=== PATIENT | female | born 1965 | race Caucasian/White ===

== ENCOUNTER 2020-10-03 12:53 | Outpatient (CLI) | payer MEDICARE | END 2020-10-03 12:54 | disposition home or self-care (01) | LOC: DTY/OP 12:53 | PROVIDERS: ATTEND Specialist | DX: Z01.818 Encounter for other preprocedural examination (principal); E66.01 Morbid (severe) obesity due to excess calories | CPT/HCPCS: 97802 ==

== ENCOUNTER 2020-10-24 06:34 | Outpatient (CLI) | payer MEDICARE ==
[2020-10-24 18:33] LABS: SARS-CoV-2 MS2 Positive; SARS-CoV-2 N Gene Negative; SARS-CoV-2 S Gene Negative; SARS-CoV-2 by NAA Not Detected (NotDetected); SARS-CoV-2 orf1ab Negative
== END 2020-10-24 06:35 | disposition home or self-care (01) ==
LOC: LABBT 06:34
PROVIDERS: ATTEND Specialist
DX: Z01.812 Encounter for preprocedural laboratory examination (principal); E66.01 Morbid (severe) obesity due to excess calories; E13.9 Other specified diabetes mellitus without complications; R06.02 Shortness of breath; M19.90 Unspecified osteoarthritis, unspecified site; F32.9 Major depressive disorder, single episode, unspecified; G47.33 Obstructive sleep apnea (adult) (pediatric); I15.9 Secondary hypertension, unspecified; Z20.828 Contact with and (suspected) exposure to other viral communicable diseases
CPT/HCPCS: 87635; U0003

== ENCOUNTER 2020-10-24 09:45 | Inpatient (IN) | payer MEDICARE ==
--- NOTE | 2020-10-26 09:03 | HP ---
ADDENDUM: Addendum to history and physical dictated on 09/24/2020, dictation #[id number]. HISTORY OF PRESENT ILLNESS: Niki Yeung is a 54-year-old female, who lives in [place], presents for bariatric surgery. I saw her on 09/24/2020, initial consultation, as she was interested in a sleeve gastrectomy. In 2016, she was planning sleeve gastrectomy and hiatal hernia repair, and in the operating room in [facility], she underwent the operation with hiatal hernia repair, but suffered a vasovagal reaction requiring atropine and a brief period of CPR resuscitating her and the bariatric portion of the procedure was canceled. 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 [employer] believed at that time that she had a vasovagal reaction. She more recently in April of this year saw her traffic sign supervisor in [facility] and again cardiac stress test re-performed and was normal. The patient had upper endoscopy last year when she had a food bolus stuck and that endoscopy was normal. In high school, she weighed 135 pounds, gaining weight slowly until 5 years ago, she weighed 275 pounds, attributing menopause to her rapid weight gain to 299 pounds, 44 BMI currently. Through diet, she has lost about 70 pounds at different times, but gained it back. She is continuing to try to lose weight on her own without durable success. Her current weight and heaviest weight is 299 pounds, BMI 44 when I initially saw her, and on this followup visit today, she is 294 pounds, 43 BMI. She has viewed our educational seminar. She has comorbidities of reflux. She states she began having reflux many years ago and was found to have a hiatal hernia and as noted above, planned bariatric surgery and hiatal hernia repair. Since that surgery in 2016, she has been on PPIs with some breakthrough reflux symptoms. As noted above, in the interim, she has had a food bolus with an upper endoscopy performed that was normal without recurrent hiatal hernia. There were no anatomic abnormalities noted at the time of her food bolus evaluation. The patient since I saw her on September 24, 2020, has stopped her PPIs with tremendous problems with reflux. I told her initially when I saw her on September 24 and with this more recent information that if her reflux is intolerable off PPIs that she should consider gastric bypass. She is agreeable to that. I have explained to her that we do not want to have a discussion in the future after sleeve gastrectomy about revision to gastric bypass as the risks of surgery increase with revisions. She is agreeable and interested in durable weight loss solution and durable resolution of her reflux. She was initially authorized for a sleeve gastrectomy and we will resubmit request for authorization for laparoscopic gastric bypass, which is the correct operation to do in this setting with the patient having significant reflux. There is no indication or reason to believe that she has recurrent hiatal hernia considering recent upper endoscopy in the last year and no need to repeat that. If she is found to have a recurrent hiatal hernia at time of surgery, that will be addressed as part of her bariatric procedure. As noted above, she has viewed our bariatric seminar online. She has been through psychological evaluation and felt to be a good candidate. Preoperative labs have been obtained. CURRENT MEDICATIONS: PPI, which she has discontinued, suffering severe reflux and had been restarted. PAST MEDICAL HISTORY: Chronic pain, depression, allergies, anxiety, hypertension, reflux. PAST SURGICAL HISTORY: Partial hysterectomy in 1984, laparoscopic appendectomy in 1981, carpal tunnel in 1995, thyroidectomy in 1998, laparoscopic cholecystectomy in 1999, back surgery in 2000, laparoscopic oophorectomy in 2000. Laparoscopic hiatal hernia repair aborting the bariatric procedure in 2016. Extensive cardiac evaluation at that time and repeated with a negative stress test earlier this year. ALLERGIES: SULFA, ALEVE. REVIEW OF SYSTEMS: Noncontributory. FAMILY HISTORY: Noncontributory. PHYSICAL EXAMINATION: VITAL SIGNS: Height 5 foot 9 inches, weight 299 pounds, 44 BMI when initially evaluated. Today, 294 pounds and 43 BMI. LUNGS: Clear to auscultation. CARDIAC: Regular rate and rhythm without murmur or gallop. ABDOMEN: Soft, nontender. EXTREMITIES: Unremarkable. Obese abdomen. ASSESSMENT AND PLAN: 1. Morbid obesity. We would recommend laparoscopic Wes-en-Y gastric bypass. She understands risks and benefits and consents. Questions have been answered. 2. Reflux. Significant risk of persistent reflux and intractable after sleeve gastrectomy, and Wes-en-Y gastric bypass is the correct operation to perform. She understands risks and benefits of that procedure and consents. 3. Hypertension. 4. Depression. 5. Anxiety. Job ID: [id number]
[2020-10-29] MEDS ORDERED: Heparin 5,000 UNITS/ML VIAL ONE (07:46)
[2020-10-29] MEDS ORDERED: Ketorolac Tromethamine 30 MG/ML VIAL ONE ×2 (07:46→10:04)
[2020-10-29] MEDS ORDERED: Scopolamine 1.5 mg/72 hour Patch ONE (07:46)
[2020-10-29] MEDS ORDERED: Acetaminophen 500 MG TAB ONE (07:46)
[2020-10-29] MEDS ORDERED: Bupivacaine 0.25% HCL 30 ML VIAL ONE (09:46)
[2020-10-29] MEDS ORDERED: Lidocaine 1% w/Epinephrine 1:100K 20 ML VIAL ONE (09:46)
[2020-10-29] MEDS ORDERED: Fentanyl 100 MCG/2 ML VIAL ONE ×2 (10:00→13:09)
[2020-10-29] MEDS ORDERED: Phenylephrine 10 MG/ML VIAL ONE (10:01)
[2020-10-29] MEDS ORDERED: Midazolam HCl 2 mg/2 ml Vial ONE (10:01)
[2020-10-29] MEDS ORDERED: Famotidine/PF 20 mg/2ml Vial ONE (10:01)
[2020-10-29] MEDS ORDERED: Ketamine 50 MG/ML (10ML VIAL) ONE (10:01)
[2020-10-29] MEDS ORDERED: SUGAMMADEX SODIUM 200 MG/2 ML VIAL ONE (10:01)
[2020-10-29] MEDS ORDERED: Rocuronium Bromide 10 MG/ML (10ML VIAL) ONE (10:04)
[2020-10-29] MEDS ORDERED: PHENYLEPHRINE-NS 100 MCG/ML 10 ML SYRINGE ONE (10:04)
[2020-10-29] MEDS ORDERED: PROPOFOL 200 MG/20 ML VIAL ONE (10:04)
[2020-10-29] MEDS ORDERED: Metoclopramide HCl 10 MG/2 ML VIAL ONE (10:04)
[2020-10-29] MEDS ORDERED: Ondansetron PF 4 MG/2 ML Vial ONE ×2 (10:04→13:59)
[2020-10-29] MEDS ORDERED: Dexamethasone 20 MG/5 ML VIAL ONE (10:04)
[2020-10-29] MEDS ORDERED: Lidocaine 1% PF 5 ML VIAL ONE (10:04)
[2020-10-29] MEDS ORDERED: Ondansetron PF 4 MG/2 ML Vial IVP PRN (10:26)
[2020-10-29] MEDS ORDERED: diphenhydrAMINE 50 MG/ML VIAL IVP PRN (10:26)
[2020-10-29] MEDS ORDERED: Morphine 2 MG/ML VIAL SLOW IVP PRN (10:26)
[2020-10-29] MEDS ORDERED: Hydrocodone-Acetamin 15 ML UDCUP PO PRN (10:26)
[2020-10-29] MEDS ORDERED: Morphine 4 MG/ML VIAL SLOW IVP PRN (10:26)
[2020-10-29] MEDS ORDERED: hydrALAZINE 20 MG/ML VIAL SLOW IVP PRN (10:26)
[2020-10-29] MEDS ORDERED: Promethazine HCl 25 MG/ML VIAL IM PRN (12:44)
[2020-10-29] MEDS ORDERED: PACU-Morphine 4MG/ML VIAL SLOW IVP PRN (12:44)
[2020-10-29] MEDS ORDERED: Meperidine HCl/PF 25 MG/ML VIAL SLOW IVP PRN (12:44)
[2020-10-29] MEDS ORDERED: Promethazine HCl 25 MG/ML VIAL SLOW IVP PRN (12:44)
[2020-10-29] MEDS ORDERED: Ondansetron HCl/PF 4 MG/2 ML Vial IVP PRN (12:44)
[2020-10-29] MEDS ORDERED: Acetaminophen 650 MG/20.3 ML UDCUP PO PRN (13:03)
[2020-10-29] MEDS ORDERED: oxyCODONE 5 MG TAB PO PRN (13:09)
[2020-10-29] MEDS ORDERED: Promethazine HCl 25 MG/ML VIAL ONE (13:22)
--- NOTE | 2020-10-29 14:15 | OP ---
DATE OF PROCEDURE: 10/29/2020 PREOPERATIVE DIAGNOSES: Morbid obesity, 299 pounds and 44 BMI initially seen. Preoperative weight 294 pounds and 43 BMI. Comorbidities; gastroesophageal reflux disease, hypertension, low back pain, and previous vasovagal reaction during [facility] bariatric surgery ending after hiatal hernia repair, not able to do complete bariatric surgery. POSTOPERATIVE DIAGNOSES: Morbid obesity, 299 pounds and 44 BMI initially seen. Preoperative weight 294 pounds and 43 BMI. Comorbidities; gastroesophageal reflux disease, hypertension, low back pain, and previous vasovagal reaction during [facility] bariatric surgery ending after hiatal hernia repair, not able to do complete bariatric surgery. PROCEDURES PERFORMED: Laparoscopic adhesiolysis, laparoscopic Wes-en-Y gastric bypass, 100 cm Wes limb antecolic, mesenteric defect closed. Staple line reinforcement was used. ANESTHESIA: General, local 0.25% Marcaine 30 mL mixed with 1% Xylocaine with epinephrine 20 mL. DESCRIPTION OF PROCEDURE: The patient was taken to the operating room, where in supine position, abdomen was prepared with ChloraPrep and draped in routine fashion. Local anesthetic was infiltrated in the skin and subcutaneous tissue about all port sites. Supraumbilical midline incision was made and pneumoperitoneum to 15 mmHg was obtained with a Veress needle, replaced with a 5 port. The laparoscope was inserted. Bilateral upper abdominal midclavicular line incision was made and a 15 port placed on the patient's left and 12 port on the right. Bilateral subcostal far lateral incision was made through the old port sites and scars and 5 mm port was placed. Subxiphoid incision was made and a Yamileth liver retractor connected in Vinh's arm, reflecting left lobe of the liver. The patient had omental adhesions to the small bowel. We took these down inferiorly allowing reflection of the omentum cephalad. This took about 45 minutes. There were some small bowel adhesions to the abdominal wall in the lower abdomen, some of which were taken down to enable mobilization of the omentum. Once the omentum was identified, it was split to the left of midline to the transverse colon, which was kept free of harm. Ligament of Treitz identified. 20 cm from the ligament of Treitz, small bowel divided with a CASSIE white load stapler and mesentery adjacent divided with a white load CASSIE stapler. Good hemostasis noted. Wes limb devascularized about 6 cm using the LigaSure. A 100 cm Wes limb measured and a jejunojejunostomy formed [id number] with CASSIE 60 load stapler and common defect closed with 2 fires of the CASSIE stapler. Mesenteric defect closed with [id number] sutures of 2-0 Vicryl and interrupted sutures of 2-0 Vicryl. Once this was completed, the patient was placed in deep reverse Trendelenburg and omentum reflected cephalad. Wes limb measured properly noted to be oriented correctly and placed in the upper abdomen. There were some adhesions of the liver and stomach taken down with the LigaSure. The gastroesophageal junction identified. Hiatal hernia repaired previously, seen to be intact. A 4 cm from the gastroesophageal junction along the lesser curvature, a window of the stomach was made and the posterior sac entered and all instrumentation removed through the stomach in a single fire of the CASSIE reinforced staple line, 45 stapler fired transversely creating the first fire of the gastric pouch. Opening made in the stomach inferiorly and laterally and a 25 mm EEA stapler placed into the stomach, directed in the gastric pouch and attached suture threaded through the 5 mm band passer, passed up through the gastric pouch and a small defect was made up to the anterior staple line for initial fire of the gastric pouch and the band passer pulled out. Suture retrieved and band passer removed. Anvil brought out through this opening adjacent to the staple line. Gastrotomy closed with 2 fires of the CASSIE blue load reinforced stapler. Once this was completed, the stomach was partitioned up towards the angle of His with serial fires of a reinforced blue load stapler. The angle of His was kept clear to avoid encroachment on the stapler. Complete division of the gastric pouch was performed. Probably, a 30 to 40 mm gastric pouch was formed. At this point, the Wes limb devascularized segment opened on the ischemic segment and a 25 mm EEA stapler advanced with the post advanced out of the antimesenteric border mated to the anvil, where the point had been removed. Once these were mated, it was approximated in the torque fire range, fired and released and intact donuts retrieved and the staple line noted to be good. At this point, the devascularized Wes limb was divided with 2 fires of the CASSIE white load stapler, removing it through the 15 mm port site. Gastrojejunostomy reinforced with interrupted sutures of 3-0 Vicryl right posterolateral, left posterolateral, and left anterolateral. Once this was completed, the anastomosis checked under water by noting orogastric tube placed by Anesthesia and across the gastrojejunostomy appreciated laparoscopically occluding the Wes limb outflow with atraumatic bowel clamp and was checked under water and there was no leak and insufflated nicely and there was no leak. OG tube removed. The 15 mm port site at left upper quadrant irrigated closely and posterior fascia approximated with 0 Vicryl GraNee needle [id number]. Irrigant and pneumoperitoneum evacuated and all instruments were removed, all skin incisions approximated with subdermal 4-0 Monocryl and [place] glue applied. The patient tolerated the procedure well. Job ID: [id number]
[2020-10-29] MEDS ORDERED: Morphine 4 MG/ML VIAL ONE (16:49)
[2020-10-29] MEDS: Pregabalin 50 MG CAP PO SCH ×2 (20:29→21:21)
[2020-10-29] MEDS: tiZANidine HCl 4 MG TAB PO SCH (20:30)
[2020-10-29] MEDS: 1/2 NS w/KCL 20 mEq 1,000 ML IV SCH ×2 (20:36)
[2020-10-29] MEDS: Ketorolac Tromethamine 30 MG/ML VIAL IVP SCH ×2 (20:36→23:49)
[2020-10-29] MEDS ORDERED: traZODone HCl 50 MG TAB PO SCH (21:00)
[2020-10-29] MEDS ORDERED: Melatonin 3 MG TAB PO SCH ×2 (21:00)
[2020-10-29] MEDS ORDERED: Amlodipine 5 MG TAB PO SCH (21:00)
[2020-10-29] MEDS ORDERED: risperiDONE 1 MG TAB PO SCH (21:00)
[2020-10-29] MEDS ORDERED: Enoxaparin Sodium 40 MG/0.4 ML SYRINGE SC SCH (21:00)
[2020-10-29] MEDS: busPIRone HCl 5 MG TAB PO SCH (21:02)
[2020-10-29 22:15] VITALS: BMI 43.7
[2020-10-30] MEDS: 1/2 NS w/KCL 20 mEq 1,000 ML IV SCH ×2 (04:54→11:39)
[2020-10-30] MEDS: Ketorolac Tromethamine 30 MG/ML VIAL IVP SCH ×2 (05:02→13:23)
[2020-10-30 06:29] LABS: Anion Gap 12 mmol/L (10-20); BUN (Urea Nitrogen) 10 mg/dL (9.8-20.1); Calc. Creatinine Clearance 166 mL/min (70-130); Calcium 7.9 mg/dL (7.8-10.44); Carbon Dioxide 26 mmol/L (22-29); Chloride 104 mmol/L (98-107); Glucose 136 mg/dL (70-105); Potassium 4.2 mmol/L (3.5-5.1); Sodium 138 mmol/L (136-145)
[2020-10-30 06:36] LABS: Hemoglobin 11.2 g/dL (12.0-16.0); Mean Corpuscular HGB CONC 32.1 g/dL (32.0-36.0); Mean Corpuscular Hemoglobin 28.3 pg (27.0-31.0); Mean Corpuscular Volume 88.1 fL (78.0-98.0); Mean Platelet Volume 7.9 fL (7.4-10.4); Platelet Count 270 thou/uL (130-400); RBC Distribution Width 13.1 % (11.5-14.5); Red Blood Cell (RBC) Count 3.95 mill/uL (4.20-5.40); White Blood Cell (WBC) Count 7.6 thou/uL (4.8-10.8)
[2020-10-30] MEDS: Pregabalin 50 MG CAP PO SCH (08:35)
[2020-10-30] MEDS: busPIRone HCl 5 MG TAB PO SCH ×2 (08:36→13:24)
[2020-10-30] MEDS: tiZANidine HCl 4 MG TAB PO SCH (08:36)
[2020-10-30 08:54] LABS: Band 47 % (5-11); Lymphocytes 2 % (21-51); MDiff Complete? YES; Monocytes 5 % (0-10); Neutrophil 43 % (42-75); Platelet Morphology Comment Appears Adequate; Polychromasia SLIGHT = 2-3 cells (100X) (0-2/hpf); Reactive Lymphocytes 3 % (0-10)
[2020-10-30] MEDS ORDERED: buPROPion 75 MG TAB PO SCH (09:00)
[2020-10-30] MEDS ORDERED: Venlafaxine HCl XR 150 MG CAP PO SCH (09:00)
[2020-10-30] MEDS ORDERED: Pantoprazole 40 MG VIAL IVP SCH (09:00)
--- NOTE | 2020-10-30 09:39 | PRG ---
DATE OF SERVICE: SUBJECTIVE: Ms. Yeung is doing well today. She is tolerating liquids. She has not had any nausea or vomiting. OBJECTIVE: VITAL SIGNS: Temperature 98.6 degrees, heart rate 103, and respiratory rate 16. LUNGS: Clear to auscultation. CARDIAC: rhythm without murmur or gallop. ABDOMEN: Soft. Bowel sounds present. LABORATORY DATA: This morning, her white count is 7, hemoglobin 11.2. She does have 47% bands. Basic metabolic profile is normal. Glucose 136. She seems to be tolerating her liquids well. At this point, we will recheck her CBC at 11 a.m., possibly consider discharge home later today pending clinical course. Job ID: [id number]
[2020-10-30 11:37] VITALS: BP 107/69; TEMP 98.5
[2020-10-30 11:55] LABS: Hemoglobin 11.1 g/dL (12.0-16.0); Mean Corpuscular HGB CONC 32.4 g/dL (32.0-36.0); Mean Corpuscular Hemoglobin 28.7 pg (27.0-31.0); Mean Corpuscular Volume 88.5 fL (78.0-98.0); Mean Platelet Volume 7.8 fL (7.4-10.4); Platelet Count 250 thou/uL (130-400); RBC Distribution Width 13.2 % (11.5-14.5); Red Blood Cell (RBC) Count 3.86 mill/uL (4.20-5.40); White Blood Cell (WBC) Count 11.3 thou/uL (4.8-10.8)
[2020-10-30 12:21] LABS: Band 40 % (5-11); Lymphocytes 10 % (21-51); MDiff Complete? YES; Metamyelocyte 3 % (0-0); Monocytes 3 % (0-10); Neutrophil 44 % (42-75); Platelet Morphology Comment Appears Adequate; Polychromasia SLIGHT = 2-3 cells (100X) (0-2/hpf)
--- NOTE | 2020-10-31 07:13 | DIS ---
DATE OF ADMISSION: 10/29/2020 DATE OF DISCHARGE: 10/30/2020 DISCHARGE DIAGNOSES: Morbid obesity, status post hiatal hernia repair in [facility] more than 2 years ago, bariatric portion, sleeve gastrectomy aborted due to vasovagal, CPR, undergoing cardiac evaluation, revealing it to be normal. HOSPITAL COURSE: Now, brought in for gastric bypass due to GERD. Previous weight 299 pounds, BMI 44 when I initially saw her, on followup visit, 294 pounds, 43 BMI, having had previous laparoscopic hiatal hernia repair as noted above and gynecological surgery. The patient was admitted on day of surgery, underwent laparoscopic gastric bypass. She required adhesions to free the omentum from the pelvis, small bowel. Postoperatively, the patient did well. She tolerated liquids. She is being discharged home with Lortab Elixir p.r.n. pain, Tylenol p.r.n. pain. She is to resume her home medications, emptying her Effexor ER capsule, holding her metformin and hydrochlorothiazide. Follow up in my office in 2 to 3 weeks. No activity restrictions, no lifting restrictions, bariatric liquids, and progress per protocol. Take her PPI, protein supplements, and vitamins. At discharge, hemoglobin 11.1. Job ID: [id number]
== END 2020-10-30 14:13 | disposition home or self-care (01) | DRG 621 ==
LOC: SURG A 10-29 07:05
PROVIDERS: ADMIT Specialist; ATTEND Specialist
PROC: 0D164ZA Bypass Stomach to Jejunum, Percutaneous Endoscopic Approach (ICD-10-PCS; principal; 2020-10-29)
PROC: 0DNU4ZZ Release Omentum, Percutaneous Endoscopic Approach (ICD-10-PCS; 2020-10-29)
DX: E66.01 Morbid (severe) obesity due to excess calories (principal); Z68.41 Body mass index [BMI] 40.0-44.9, adult; G89.29 Other chronic pain; F32.9 Major depressive disorder, single episode, unspecified; F41.9 Anxiety disorder, unspecified; K21.9 Gastro-esophageal reflux disease without esophagitis; E89.0 Postprocedural hypothyroidism; M54.9 Dorsalgia, unspecified; I10 Essential (primary) hypertension; Z90.49 Acquired absence of other specified parts of digestive tract; Z88.2 Allergy status to sulfonamides; Z88.8 Allergy status to other drugs, medicaments and biological substances; Z98.890 Other specified postprocedural states; Z90.721 Acquired absence of ovaries, unilateral
CPT/HCPCS: 36415; 80048; 85025; C9113; J0690; J1100; J1644; J1650; J1885; J2250; J2270; J2370; J2405; J2550; J2704; J2765; J3010; J3480; S0020; S0028

== ENCOUNTER 2020-11-03 11:09 | Inpatient (IN) | payer MEDICARE ==
[2020-11-03] MEDS ORDERED: Iopamidol-370 76% 500 ML 1 ML ONE (11:46)
[2020-11-03] MEDS ORDERED: Succinylcholine 200 MG/10 ml SYRINGE FS ONE (12:44)
[2020-11-03] MEDS ORDERED: Dexamethasone 20 MG/5 ML VIAL ONE (12:44)
[2020-11-03] MEDS ORDERED: Ketorolac Tromethamine 30 MG/ML VIAL ONE (12:44)
[2020-11-03] MEDS ORDERED: Ondansetron PF 4 MG/2 ML Vial ONE (12:44)
[2020-11-03] MEDS ORDERED: Lidocaine 1% PF 5 ML VIAL ONE (12:44)
[2020-11-03] MEDS ORDERED: Glycopyrrolate 0.2 MG/ML 5 ML SYRINGE ONE (12:44)
[2020-11-03] MEDS ORDERED: PROPOFOL 200 MG/20 ML VIAL ONE (12:44)
[2020-11-03] MEDS ORDERED: Rocuronium Bromide 10 MG/ML (10ML VIAL) ONE (12:44)
[2020-11-03 12:52] LABS: ALT (SGPT) 20 U/L (8-55); AST (SGOT) 37 U/L (5-34); Albumin 2.7 g/dL (3.5-5.0); Alkaline Phosphatase 98 U/L (40-110); Anion Gap 16 mmol/L (10-20); BUN (Urea Nitrogen) 33 mg/dL (9.8-20.1); Bilirubin, Total 0.8 mg/dL (0.2-1.2); Calc. Creatinine Clearance 0 mL/min (70-130); Calcium 7.9 mg/dL (7.8-10.44); Carbon Dioxide 22 mmol/L (22-29); Chloride 91 mmol/L (98-107); Globulin 3.2 g/dL (2.4-3.5); Glucose 88 mg/dL (70-105); Potassium 4.2 mmol/L (3.5-5.1); Protein, Total 5.9 g/dL (6.0-8.3); Sodium 125 mmol/L (136-145)
[2020-11-03] MEDS ORDERED: Fentanyl 100 MCG/2 ML VIAL ONE ×3 (13:43→17:08)
[2020-11-03] MEDS ORDERED: Sodium Chloride 0.9% 20 ML ONE (15:42)
[2020-11-03] MEDS ORDERED: Ondansetron HCl/PF 4 MG/2 ML Vial IVP PRN (16:05)
[2020-11-03] MEDS ORDERED: hydrALAZINE 20 MG/ML VIAL SLOW IVP PRN (16:09)
[2020-11-03] MEDS ORDERED: Ondansetron PF 4 MG/2 ML Vial IVP PRN (16:09)
[2020-11-03] MEDS ORDERED: Promethazine HCl 25 MG/ML VIAL IM PRN (16:09)
[2020-11-03] MEDS ORDERED: Dextrose 50% Abboject 50 ML SYRINGE SLOW IVP PRN (16:09)
[2020-11-03] MEDS ORDERED: Dextrose 5% in Water 1,000 ML IV PRN (16:09)
[2020-11-03] MEDS ORDERED: HumaLOG 300 UNITS/3 ML VIAL SC PRN (16:09)
[2020-11-03] MEDS ORDERED: Naloxone HCl 0.4 mg/ml Vial IV PRN (16:10)
[2020-11-03] MEDS ORDERED: diphenhydrAMINE 50 MG/ML VIAL IM PRN (16:10)
[2020-11-03] MEDS ORDERED: Zolpidem Tartrate 5 MG TAB PO PRN (16:10)
[2020-11-03] MEDS ORDERED: diphenhydrAMINE 25 MG CAP PO PRN (16:10)
[2020-11-03] MEDS ORDERED: diphenhydrAMINE 50 MG/ML VIAL IVP PRN (16:10)
[2020-11-03] MEDS ORDERED: Communication Order-Pharmacy FS SCH (16:15)
[2020-11-03] MEDS: D5 1/2 NS w/20 mEq KCL 1,000 ML IV SCH (19:50)
[2020-11-03] MEDS: Sodium Chloride 0.9% 1,000 ML IV SCH (19:50)
[2020-11-03] MEDS: Piperacillin/Tazobactam 3.375 GM in Sodium Chloride 0.9% 100 ML IVPB SCH (19:57)
[2020-11-03 23:10] VITALS: BMI 45.8
[2020-11-04] MEDS: Sodium Chloride 0.9% 1,000 ML IV SCH ×3 (00:42→15:27)
[2020-11-04] MEDS: Piperacillin/Tazobactam 3.375 GM in Sodium Chloride 0.9% 100 ML IVPB SCH ×5 (00:49→23:02)
[2020-11-04] MEDS: D5 1/2 NS w/20 mEq KCL 1,000 ML IV SCH ×2 (05:52→10:25)
[2020-11-04 06:48] LABS: Hemoglobin 9.4 g/dL (12.0-16.0); Mean Corpuscular HGB CONC 31.3 g/dL (32.0-36.0); Mean Corpuscular Hemoglobin 27.6 pg (27.0-31.0); Mean Corpuscular Volume 88.1 fL (78.0-98.0); Mean Platelet Volume 8.8 fL (7.4-10.4); Platelet Count 248 thou/uL (130-400); RBC Distribution Width 13.8 % (11.5-14.5); White Blood Cell (WBC) Count 19.7 thou/uL (4.8-10.8)
[2020-11-04 06:49] LABS: Anion Gap 19 mmol/L (10-20); BUN (Urea Nitrogen) 23 mg/dL (9.8-20.1); Calc. Creatinine Clearance 173 mL/min (70-130); Calcium 7.4 mg/dL (7.8-10.44); Carbon Dioxide 17 mmol/L (22-29); Chloride 100 mmol/L (98-107); Glucose 106 mg/dL (70-105); Potassium 4.3 mmol/L (3.5-5.1); Sodium 132 mmol/L (136-145)
[2020-11-04] MEDS: Pantoprazole 40 MG VIAL IVP SCH (08:39)
[2020-11-04] MEDS: Enoxaparin Sodium 40 MG/0.4 ML SYRINGE SC SCH (08:39)
[2020-11-04] MEDS ORDERED: FLU VACC QS2020-21(6MOS UP)/PF 60 MCG/0.5 ML SYRINGE IM ONE (09:00)
[2020-11-04 09:55] LABS: Band 40 % (5-11); Eosinophils 1 % (0-10); Lymphocytes 5 % (21-51); MDiff Complete? YES; Metamyelocyte 4 % (0-0); Monocytes 4 % (0-10); Neutrophil 46 % (42-75); Platelet Morphology Comment Appears Adequate; Polychromasia SLIGHT = 2-3 cells (100X) (0-2/hpf)
[2020-11-04] MEDS: Fluconazole In NaCl,Iso-Osm 200 MG in Premix Bag 1 BAG IVPB SCH (16:18)
[2020-11-04] MEDS: Ketorolac Tromethamine 30 MG/ML VIAL IVP PRN ×2 (16:23→22:23)
[2020-11-04] MEDS: fentaNYL Citrate/PF 2,000 MCG in Sodium Chloride 0.9% 60 ML IV PRN (22:56)
[2020-11-05] MEDS: D5 1/2 NS w/20 mEq KCL 1,000 ML IV SCH ×4 (02:13→23:57)
[2020-11-05] MEDS: Sodium Chloride 0.9% 1,000 ML IV SCH ×2 (02:14→17:59)
[2020-11-05] MEDS: Piperacillin/Tazobactam 3.375 GM in Sodium Chloride 0.9% 100 ML IVPB SCH ×4 (06:14→23:57)
[2020-11-05] MEDS: Ketorolac Tromethamine 30 MG/ML VIAL IVP PRN (06:44)
[2020-11-05 06:56] LABS: Hemoglobin 8.5 g/dL (12.0-16.0); Mean Corpuscular HGB CONC 31.1 g/dL (32.0-36.0); Mean Corpuscular Hemoglobin 27.4 pg (27.0-31.0); Mean Corpuscular Volume 88.3 fL (78.0-98.0); Mean Platelet Volume 8.6 fL (7.4-10.4); Platelet Count 270 thou/uL (130-400); White Blood Cell (WBC) Count 21.4 thou/uL (4.8-10.8)
[2020-11-05 07:16] LABS: Anion Gap 11 mmol/L (10-20); BUN (Urea Nitrogen) 14 mg/dL (9.8-20.1); Calc. Creatinine Clearance 218 mL/min (70-130); Calcium 7.4 mg/dL (7.8-10.44); Carbon Dioxide 25 mmol/L (22-29); Chloride 103 mmol/L (98-107); Glucose 153 mg/dL (70-105); Potassium 3.9 mmol/L (3.5-5.1); Sodium 135 mmol/L (136-145)
[2020-11-05 07:18] LABS: Band 43 % (5-11); Eosinophils 1 % (0-10); Lymphocytes 14 % (21-51); MDiff Complete? YES; Monocytes 2 % (0-10); Neutrophil 40 % (42-75)
[2020-11-05] MEDS: Pantoprazole 40 MG VIAL IVP SCH (08:55)
[2020-11-05] MEDS: Enoxaparin Sodium 40 MG/0.4 ML SYRINGE SC SCH (08:55)
[2020-11-05] MEDS: Multivitamins, Adult 10 ML in D5 1/2 NS w/20 mEq KCL 1,000 ML IV SCH (14:18)
[2020-11-05] MEDS: Fluconazole In NaCl,Iso-Osm 200 MG in Premix Bag 1 BAG IVPB SCH (18:24)
[2020-11-06] MEDS: fentaNYL Citrate/PF 2,000 MCG in Sodium Chloride 0.9% 60 ML IV PRN ×2 (03:27→20:05)
[2020-11-06] MEDS: Piperacillin/Tazobactam 3.375 GM in Sodium Chloride 0.9% 100 ML IVPB SCH ×4 (05:14→23:47)
[2020-11-06 05:57] LABS: Hemoglobin 9.3 g/dL (12.0-16.0); Mean Corpuscular HGB CONC 31.8 g/dL (32.0-36.0); Mean Corpuscular Hemoglobin 28.1 pg (27.0-31.0); Mean Corpuscular Volume 88.2 fL (78.0-98.0); Mean Platelet Volume 8.4 fL (7.4-10.4); Platelet Count 283 thou/uL (130-400); RBC Distribution Width 14.1 % (11.5-14.5); Red Blood Cell (RBC) Count 3.31 mill/uL (4.20-5.40); White Blood Cell (WBC) Count 22.4 thou/uL (4.8-10.8)
[2020-11-06 06:29] LABS: Band 38 % (5-11); Lymphocytes 8 % (21-51); MDiff Complete? YES; Metamyelocyte 2 % (0-0); Monocytes 3 % (0-10); Myelocyte 2 % (0-0); Neutrophil 47 % (42-75); Toxic Granulation SLIGHT; Vacuoles SLIGHT
[2020-11-06 06:57] LABS: Anion Gap 14 mmol/L (10-20); BUN (Urea Nitrogen) 8 mg/dL (9.8-20.1); Calc. Creatinine Clearance 229 mL/min (70-130); Calcium 7.7 mg/dL (7.8-10.44); Carbon Dioxide 23 mmol/L (22-29); Chloride 103 mmol/L (98-107); Glucose 123 mg/dL (70-105); Potassium 3.8 mmol/L (3.5-5.1); Sodium 136 mmol/L (136-145)
[2020-11-06] MEDS ORDERED: Multivit, Adult Inj 10 ML VIAL IV SCH (09:00)
[2020-11-06] MEDS: Enoxaparin Sodium 40 MG/0.4 ML SYRINGE SC SCH (09:06)
[2020-11-06] MEDS: Pantoprazole 40 MG VIAL IVP SCH (09:06)
[2020-11-06] MEDS: D5 1/2 NS w/20 mEq KCL 1,000 ML IV SCH ×3 (11:56→23:47)
[2020-11-06] MEDS: Multivitamins, Adult 10 ML in D5 1/2 NS w/20 mEq KCL 1,000 ML IV SCH (15:13)
[2020-11-06] MEDS: Fluconazole In NaCl,Iso-Osm 200 MG in Premix Bag 1 BAG IVPB SCH (18:18)
[2020-11-07] MEDS: Piperacillin/Tazobactam 3.375 GM in Sodium Chloride 0.9% 100 ML IVPB SCH ×3 (05:16→18:54)
[2020-11-07 06:42] LABS: Hemoglobin 9.1 g/dL (12.0-16.0); Mean Corpuscular HGB CONC 31.3 g/dL (32.0-36.0); Mean Corpuscular Hemoglobin 27.6 pg (27.0-31.0); Mean Corpuscular Volume 88.2 fL (78.0-98.0); Mean Platelet Volume 8.4 fL (7.4-10.4); Platelet Count 304 thou/uL (130-400); RBC Distribution Width 14.2 % (11.5-14.5); Red Blood Cell (RBC) Count 3.29 mill/uL (4.20-5.40); White Blood Cell (WBC) Count 23.2 thou/uL (4.8-10.8)
[2020-11-07 07:25] LABS: SARS-CoV-2 NAA Rapid Test Not Detected (NotDetected)
[2020-11-07] MEDS: Pantoprazole 40 MG VIAL IVP SCH (07:58)
[2020-11-07] MEDS ORDERED: Glycopyrrolate 0.2 MG/ML 5 ML SYRINGE ONE (08:46)
[2020-11-07] MEDS ORDERED: PROPOFOL 200 MG/20 ML VIAL ONE (08:46)
[2020-11-07] MEDS ORDERED: Ondansetron PF 4 MG/2 ML Vial ONE (08:46)
[2020-11-07 08:48] LABS: Band 35 % (5-11); Lymphocytes 7 % (21-51); MDiff Complete? YES; Metamyelocyte 2 % (0-0); Monocytes 2 % (0-10); Myelocyte 3 % (0-0); Neutrophil 51 % (42-75); Nucleated RBC 1 % (0); Platelet Morphology Comment Appears Adequate; Polychromasia SLIGHT = 2-3 cells (100X) (0-2/hpf)
[2020-11-07] MEDS ORDERED: Fentanyl 100 MCG/2 ML VIAL ONE ×2 (08:49→11:17)
[2020-11-07] MEDS ORDERED: Famotidine/PF 20 mg/2ml Vial ONE (08:49)
[2020-11-07] MEDS ORDERED: Ketamine 50 MG/ML (10ML VIAL) ONE (08:52)
[2020-11-07] MEDS ORDERED: Midazolam HCl 2 mg/2 ml Vial ONE (08:52)
[2020-11-07] MEDS ORDERED: Promethazine HCl 25 MG/ML VIAL IM PRN (11:04)
[2020-11-07] MEDS ORDERED: Promethazine HCl 25 MG/ML VIAL SLOW IVP PRN (11:04)
[2020-11-07] MEDS ORDERED: Ondansetron HCl/PF 4 MG/2 ML Vial IVP PRN (11:04)
[2020-11-07] MEDS: Enoxaparin Sodium 40 MG/0.4 ML SYRINGE SC SCH (13:17)
[2020-11-07] MEDS: D5 1/2 NS w/20 mEq KCL 1,000 ML IV SCH ×2 (13:18→22:01)
[2020-11-07] MEDS: Multivitamins, Adult 10 ML in D5 1/2 NS w/20 mEq KCL 1,000 ML IV SCH (14:43)
[2020-11-07] MEDS: Fluconazole In NaCl,Iso-Osm 200 MG in Premix Bag 1 BAG IVPB SCH (17:46)
[2020-11-07] MEDS: fentaNYL Citrate/PF 2,000 MCG in Sodium Chloride 0.9% 60 ML IV PRN (19:26)
[2020-11-07] MEDS: [UNRECOGNIZED DRUG - OTHER] IV SCH (21:57)
[2020-11-07] MEDS: CALCIUM CHLORIDE IV SCH (21:57)
[2020-11-07] MEDS: SODIUM ACETATE IV SCH (21:57)
[2020-11-07] MEDS: POTASSIUM ACETATE IV SCH (21:57)
[2020-11-08] MEDS: Piperacillin/Tazobactam 3.375 GM in Sodium Chloride 0.9% 100 ML IVPB SCH ×5 (00:08→23:52)
[2020-11-08] MEDS: D5 1/2 NS w/20 mEq KCL 1,000 ML IV SCH ×3 (05:24→23:33)
[2020-11-08 05:52] LABS: ALT (SGPT) 25 U/L (8-55); AST (SGOT) 26 U/L (5-34); Albumin 2.1 g/dL (3.5-5.0); Alkaline Phosphatase 70 U/L (40-110); Anion Gap 11 mmol/L (10-20); BUN (Urea Nitrogen) 4 mg/dL (9.8-20.1); Bilirubin, Total 0.5 mg/dL (0.2-1.2); Calc. Creatinine Clearance 237 mL/min (70-130); Calcium 7.6 mg/dL (7.8-10.44); Carbon Dioxide 24 mmol/L (22-29); Chloride 104 mmol/L (98-107); Globulin 2.8 g/dL (2.4-3.5); Glucose 170 mg/dL (70-105); Magnesium 1.8 mg/dL (1.6-2.6); Phosphorus 3.6 mg/dL (2.3-4.7); Potassium 3.9 mmol/L (3.5-5.1); Protein, Total 4.9 g/dL (6.0-8.3); Sodium 135 mmol/L (136-145)
[2020-11-08 06:19] LABS: Hemoglobin 7.7 g/dL (12.0-16.0); Mean Corpuscular HGB CONC 32.5 g/dL (32.0-36.0); Mean Corpuscular Hemoglobin 28.5 pg (27.0-31.0); Mean Corpuscular Volume 87.5 fL (78.0-98.0); Mean Platelet Volume 8.6 fL (7.4-10.4); Platelet Count 258 thou/uL (130-400); RBC Distribution Width 14.3 % (11.5-14.5); Red Blood Cell (RBC) Count 2.71 mill/uL (4.20-5.40); White Blood Cell (WBC) Count 21.6 thou/uL (4.8-10.8)
[2020-11-08 06:22] LABS: Band 32 % (5-11); Lymphocytes 9 % (21-51); MDiff Complete? YES; Metamyelocyte 3 % (0-0); Monocytes 3 % (0-10); Myelocyte 2 % (0-0); Neutrophil 50 % (42-75); Toxic Granulation SLIGHT; Vacuoles SLIGHT
[2020-11-08] MEDS: Pantoprazole 40 MG VIAL IVP SCH (08:52)
[2020-11-08] MEDS: Enoxaparin Sodium 40 MG/0.4 ML SYRINGE SC SCH (08:52)
[2020-11-08] MEDS ORDERED: Ketorolac Tromethamine 30 MG/ML VIAL IVP PRN (09:03)
[2020-11-08] MEDS: Fluconazole In NaCl,Iso-Osm 200 MG in Premix Bag 1 BAG IVPB SCH (16:33)
[2020-11-08 17:26] LABS: Band 17 % (5-11); Hemoglobin 7.8 g/dL (12.0-16.0); Lymphocytes 9 % (21-51); MDiff Complete? YES; Mean Corpuscular Hemoglobin 28.8 pg (27.0-31.0); Mean Corpuscular Volume 87.1 fL (78.0-98.0); Mean Platelet Volume 8.5 fL (7.4-10.4); Metamyelocyte 2 % (0-0); Monocytes 3 % (0-10); Myelocyte 2 % (0-0); Neutrophil 67 % (42-75); Ovalocytes SLIGHT = 2-5 cells (100X) (0-1/hpf); Platelet Count 331 thou/uL (130-400); Platelet Morphology Comment Appears Adequate; Polychromasia SLIGHT = 2-3 cells (100X) (0-2/hpf); RBC Distribution Width 14.3 % (11.5-14.5); Red Blood Cell (RBC) Count 2.72 mill/uL (4.20-5.40); White Blood Cell (WBC) Count 20.6 thou/uL (4.8-10.8)
[2020-11-08] MEDS: fentaNYL Citrate/PF 2,000 MCG in Sodium Chloride 0.9% 60 ML IV PRN (19:03)
[2020-11-08] MEDS: [UNRECOGNIZED DRUG - OTHER] IV SCH (22:44)
[2020-11-08] MEDS: POTASSIUM ACETATE IV SCH (22:44)
[2020-11-08] MEDS: SODIUM ACETATE IV SCH (22:44)
[2020-11-08] MEDS: CALCIUM CHLORIDE IV SCH (22:44)
[2020-11-09] MEDS: D5 1/2 NS w/20 mEq KCL 1,000 ML IV SCH ×2 (05:28→18:32)
[2020-11-09] MEDS: Piperacillin/Tazobactam 3.375 GM in Sodium Chloride 0.9% 100 ML IVPB SCH ×4 (05:28→23:41)
[2020-11-09 05:54] LABS: ALT (SGPT) 23 U/L (8-55); AST (SGOT) 23 U/L (5-34); Albumin 2.2 g/dL (3.5-5.0); Alkaline Phosphatase 75 U/L (40-110); Anion Gap 12 mmol/L (10-20); BUN (Urea Nitrogen) 7 mg/dL (9.8-20.1); Bilirubin, Total 0.3 mg/dL (0.2-1.2); Calc. Creatinine Clearance 241 mL/min (70-130); Calcium 7.9 mg/dL (7.8-10.44); Carbon Dioxide 27 mmol/L (22-29); Chloride 103 mmol/L (98-107); Glucose 139 mg/dL (70-105); Potassium 4.3 mmol/L (3.5-5.1); Protein, Total 5.2 g/dL (6.0-8.3); Sodium 138 mmol/L (136-145)
[2020-11-09 06:14] LABS: Band 20 % (5-11); Eosinophils 1 % (0-10); Hemoglobin 7.5 g/dL (12.0-16.0); Lymphocytes 17 % (21-51); MDiff Complete? YES; Mean Corpuscular HGB CONC 31.2 g/dL (32.0-36.0); Mean Corpuscular Hemoglobin 27.7 pg (27.0-31.0); Mean Corpuscular Volume 88.7 fL (78.0-98.0); Mean Platelet Volume 8.5 fL (7.4-10.4); Metamyelocyte 2 % (0-0); Monocytes 3 % (0-10); Myelocyte 1 % (0-0); Neutrophil 56 % (42-75); Platelet Count 366 thou/uL (130-400); Platelet Morphology Comment Appears Adequate; RBC Distribution Width 14.4 % (11.5-14.5); Red Blood Cell (RBC) Count 2.69 mill/uL (4.20-5.40); White Blood Cell (WBC) Count 17.2 thou/uL (4.8-10.8)
[2020-11-09] MEDS: Enoxaparin Sodium 40 MG/0.4 ML SYRINGE SC SCH (09:33)
[2020-11-09] MEDS: Pantoprazole 40 MG VIAL IVP SCH (09:33)
[2020-11-09] MEDS: fentaNYL Citrate/PF 2,000 MCG in Sodium Chloride 0.9% 60 ML IV PRN (10:45)
[2020-11-09] MEDS: Fluconazole In NaCl,Iso-Osm 200 MG in Premix Bag 1 BAG IVPB SCH (17:53)
[2020-11-09] MEDS: SODIUM ACETATE IV SCH (23:41)
[2020-11-09] MEDS: POTASSIUM ACETATE IV SCH (23:41)
[2020-11-09] MEDS: CALCIUM CHLORIDE IV SCH (23:41)
[2020-11-09] MEDS: [UNRECOGNIZED DRUG - OTHER] IV SCH (23:41)
[2020-11-10] MEDS: fentaNYL Citrate/PF 2,000 MCG in Sodium Chloride 0.9% 60 ML IV PRN ×2 (04:15→17:06)
[2020-11-10] MEDS: D5 1/2 NS w/20 mEq KCL 1,000 ML IV SCH ×2 (04:16→14:01)
[2020-11-10 05:48] LABS: ALT (SGPT) 22 U/L (8-55); AST (SGOT) 26 U/L (5-34); Albumin 2.2 g/dL (3.5-5.0); Alkaline Phosphatase 76 U/L (40-110); Anion Gap 11 mmol/L (10-20); BUN (Urea Nitrogen) 8 mg/dL (9.8-20.1); Bilirubin, Total 0.3 mg/dL (0.2-1.2); Calc. Creatinine Clearance 245 mL/min (70-130); Calcium 7.5 mg/dL (7.8-10.44); Carbon Dioxide 27 mmol/L (22-29); Chloride 105 mmol/L (98-107); Glucose 115 mg/dL (70-105); Potassium 4.1 mmol/L (3.5-5.1); Protein, Total 5.2 g/dL (6.0-8.3); Sodium 139 mmol/L (136-145)
[2020-11-10] MEDS: Piperacillin/Tazobactam 3.375 GM in Sodium Chloride 0.9% 100 ML IVPB SCH ×4 (05:54→23:29)
[2020-11-10 06:24] LABS: Band 1 % (5-11); Hemoglobin 7.3 g/dL (12.0-16.0); Lymphocytes 12 % (21-51); MDiff Complete? YES; Mean Corpuscular HGB CONC 32.7 g/dL (32.0-36.0); Mean Corpuscular Hemoglobin 28.3 pg (27.0-31.0); Mean Corpuscular Volume 86.6 fL (78.0-98.0); Mean Platelet Volume 8.1 fL (7.4-10.4); Metamyelocyte 4 % (0-0); Monocytes 8 % (0-10); Neutrophil 75 % (42-75); Nucleated RBC 1 % (0); Platelet Count 445 thou/uL (130-400); Platelet Morphology Comment Appears Increased; RBC Distribution Width 14.3 % (11.5-14.5); RBC Morphology Normal; Red Blood Cell (RBC) Count 2.59 mill/uL (4.20-5.40); White Blood Cell (WBC) Count 15.5 thou/uL (4.8-10.8)
[2020-11-10] MEDS: Pantoprazole 40 MG VIAL IVP SCH (08:19)
[2020-11-10] MEDS: Enoxaparin Sodium 40 MG/0.4 ML SYRINGE SC SCH (08:20)
[2020-11-10] MEDS: Fluconazole In NaCl,Iso-Osm 200 MG in Premix Bag 1 BAG IVPB SCH (16:23)
[2020-11-10] MEDS: Furosemide 20 MG/2 ML VIAL SLOW IVP SCH (17:35)
[2020-11-11] MEDS: POTASSIUM ACETATE IV SCH ×2 (00:16→22:28)
[2020-11-11] MEDS: SODIUM ACETATE IV SCH ×2 (00:16→22:28)
[2020-11-11] MEDS: CALCIUM CHLORIDE IV SCH ×2 (00:16→22:28)
[2020-11-11] MEDS: [UNRECOGNIZED DRUG - OTHER] IV SCH ×2 (00:16→22:28)
[2020-11-11] MEDS: D5 1/2 NS w/20 mEq KCL 1,000 ML IV SCH ×3 (00:17→17:42)
[2020-11-11] MEDS: Furosemide 20 MG/2 ML VIAL SLOW IVP SCH ×2 (05:01→10:17)
[2020-11-11] MEDS: Piperacillin/Tazobactam 3.375 GM in Sodium Chloride 0.9% 100 ML IVPB SCH ×4 (05:07→23:28)
[2020-11-11] MEDS: fentaNYL Citrate/PF 2,000 MCG in Sodium Chloride 0.9% 60 ML IV PRN ×2 (06:08→20:34)
[2020-11-11 06:35] LABS: Band 26 % (5-11); Eosinophils 2 % (0-10); Hemoglobin 8.6 g/dL (12.0-16.0); Lymphocytes 15 % (21-51); MDiff Complete? YES; Mean Corpuscular HGB CONC 31.9 g/dL (32.0-36.0); Mean Corpuscular Hemoglobin 27.6 pg (27.0-31.0); Mean Corpuscular Volume 86.7 fL (78.0-98.0); Mean Platelet Volume 7.9 fL (7.4-10.4); Metamyelocyte 1 % (0-0); Monocytes 4 % (0-10); Neutrophil 52 % (42-75); Platelet Count 613 thou/uL (130-400); Platelet Morphology Comment Appears Increased; RBC Distribution Width 14.6 % (11.5-14.5); White Blood Cell (WBC) Count 15.1 thou/uL (4.8-10.8)
[2020-11-11 06:48] LABS: Anion Gap 15 mmol/L (10-20); BUN (Urea Nitrogen) 9 mg/dL (9.8-20.1); Calc. Creatinine Clearance 187 mL/min (70-130); Calcium 8.7 mg/dL (7.8-10.44); Carbon Dioxide 31 mmol/L (22-29); Chloride 99 mmol/L (98-107); Glucose 108 mg/dL (70-105); Magnesium 1.9 mg/dL (1.6-2.6); Phosphorus 5.3 mg/dL (2.3-4.7); Potassium 4.6 mmol/L (3.5-5.1); Sodium 140 mmol/L (136-145)
[2020-11-11] MEDS: Pantoprazole 40 MG VIAL IVP SCH (10:16)
[2020-11-11] MEDS: Enoxaparin Sodium 40 MG/0.4 ML SYRINGE SC SCH (10:16)
[2020-11-11] MEDS: Fluconazole In NaCl,Iso-Osm 200 MG in Premix Bag 1 BAG IVPB SCH (18:01)
[2020-11-12] MEDS: Piperacillin/Tazobactam 3.375 GM in Sodium Chloride 0.9% 100 ML IVPB SCH ×2 (05:05→12:34)
[2020-11-12] MEDS: D5 1/2 NS w/20 mEq KCL 1,000 ML IV SCH ×3 (05:47→22:03)
[2020-11-12] MEDS: Enoxaparin Sodium 40 MG/0.4 ML SYRINGE SC SCH (09:32)
[2020-11-12] MEDS: Pantoprazole 40 MG VIAL IVP SCH (09:34)
[2020-11-12] MEDS ORDERED: PROPOFOL 200 MG/20 ML VIAL ONE (11:26)
[2020-11-12] MEDS ORDERED: Dexamethasone 20 MG/5 ML VIAL ONE (11:26)
[2020-11-12] MEDS ORDERED: Glycopyrrolate 0.2 MG/ML 5 ML SYRINGE ONE (11:26)
[2020-11-12] MEDS ORDERED: ePHEDrine 50 MG/ML VIAL ONE (11:26)
[2020-11-12] MEDS ORDERED: Ondansetron PF 4 MG/2 ML Vial ONE ×3 (11:26→20:22)
[2020-11-12] MEDS ORDERED: PHENYLEPHRINE-NS 100 MCG/ML 10 ML SYRINGE ONE (11:26)
[2020-11-12] MEDS ORDERED: Lidocaine 1% PF 5 ML VIAL ONE (11:26)
[2020-11-12] MEDS ORDERED: Rocuronium Bromide 10 MG/ML (10ML VIAL) ONE (11:26)
[2020-11-12 13:56] LABS: #Eosinphils 0.1 thou/uL (0.0-0.7); #Lymphocytes 1.7 thou/uL (1.20-3.40); #Monocytes 0.9 thou/uL (0.11-0.59); #Neutrophils 9.3 thou/uL (1.40-6.50); %Basophils 0.2 % (0.0-1.0); %Eosinophils 0.7 % (0.0-10.0); %Monocytes 7.5 % (0.0-10.0); %Neutrophils 77.6 % (42.0-75.0); Hemoglobin 7.7 g/dL (12.0-16.0); Mean Corpuscular Hemoglobin 28.1 pg (27.0-31.0); Mean Corpuscular Volume 87.7 fL (78.0-98.0); Mean Platelet Volume 7.6 fL (7.4-10.4); Platelet Count 578 thou/uL (130-400); RBC Distribution Width 14.9 % (11.5-14.5); Red Blood Cell (RBC) Count 2.73 mill/uL (4.20-5.40); White Blood Cell (WBC) Count 11.9 thou/uL (4.8-10.8)
[2020-11-12 14:12] LABS: Anion Gap 13 mmol/L (10-20); BUN (Urea Nitrogen) 13 mg/dL (9.8-20.1); Calc. Creatinine Clearance 180 mL/min (70-130); Calcium 8.3 mg/dL (7.8-10.44); Carbon Dioxide 30 mmol/L (22-29); Chloride 100 mmol/L (98-107); Glucose 134 mg/dL (70-105); Potassium 4.2 mmol/L (3.5-5.1); Sodium 139 mmol/L (136-145)
[2020-11-12] MEDS ORDERED: Fentanyl 100 MCG/2 ML VIAL SLOW IVP SCH (14:45)
[2020-11-12] MEDS ORDERED: Fentanyl 250 MCG/5 ML VIAL ONE (16:34)
[2020-11-12] MEDS ORDERED: Piperacillin/Tazobactam 3.375 GM VIAL ONE (17:23)
[2020-11-12] MEDS ORDERED: Sodium Chloride 0.9% 10 ML ONE (17:24)
[2020-11-12] MEDS: Fluconazole In NaCl,Iso-Osm 200 MG in Premix Bag 1 BAG IVPB SCH (18:44)
[2020-11-12] MEDS: Piperacillin/Tazobactam 4.5 GM in Sodium Chloride 0.9% 100 ML IVPB SCH ×2 (18:45→23:23)
[2020-11-12] MEDS ORDERED: Fentanyl 100 MCG/2 ML VIAL ONE ×3 (20:18→21:00)
[2020-11-12] MEDS ORDERED: Promethazine HCl 25 MG/ML VIAL SLOW IVP PRN (20:19)
[2020-11-12] MEDS ORDERED: Ondansetron HCl/PF 4 MG/2 ML Vial IVP PRN (20:19)
[2020-11-12] MEDS ORDERED: Promethazine HCl 25 MG/ML VIAL IM PRN (20:19)
[2020-11-12] MEDS ORDERED: Promethazine HCl 25 MG/ML VIAL ONE (20:25)
[2020-11-12] MEDS: CALCIUM CHLORIDE IV SCH (22:03)
[2020-11-12] MEDS: SODIUM ACETATE IV SCH (22:03)
[2020-11-12] MEDS: POTASSIUM ACETATE IV SCH (22:03)
[2020-11-12] MEDS: [UNRECOGNIZED DRUG - OTHER] IV SCH (22:03)
[2020-11-13] MEDS ORDERED: Sterile Water 10 ML VIAL IVP SCH (02:45)
[2020-11-13] MEDS ORDERED: Activase 2 MG VIAL CATH SCH (02:45)
[2020-11-13] MEDS: Piperacillin/Tazobactam 4.5 GM in Sodium Chloride 0.9% 100 ML IVPB SCH ×4 (05:47→23:22)
[2020-11-13] MEDS: D5 1/2 NS w/20 mEq KCL 1,000 ML IV SCH ×3 (06:33→22:14)
[2020-11-13 06:51] LABS: Anion Gap 11 mmol/L (10-20); BUN (Urea Nitrogen) 13 mg/dL (9.8-20.1); Calc. Creatinine Clearance 175 mL/min (70-130); Calcium 7.7 mg/dL (7.8-10.44); Carbon Dioxide 25 mmol/L (22-29); Chloride 104 mmol/L (98-107); Glucose 122 mg/dL (70-105); Magnesium 1.8 mg/dL (1.6-2.6); Phosphorus 3.9 mg/dL (2.3-4.7); Potassium 4.4 mmol/L (3.5-5.1); Sodium 136 mmol/L (136-145)
[2020-11-13 07:05] LABS: Band 12 % (5-11); Hemoglobin 7.2 g/dL (12.0-16.0); Hypochromia SLIGHT = 6-15 cells (100X) (0-5/hpf); Lymphocytes 4 % (21-51); MDiff Complete? YES; Mean Corpuscular HGB CONC 31.4 g/dL (32.0-36.0); Mean Corpuscular Hemoglobin 27.3 pg (27.0-31.0); Mean Corpuscular Volume 86.9 fL (78.0-98.0); Mean Platelet Volume 7.8 fL (7.4-10.4); Monocytes 7 % (0-10); Neutrophil 77 % (42-75); Platelet Count 670 thou/uL (130-400); Platelet Morphology Comment Appears Increased; RBC Distribution Width 15.5 % (11.5-14.5); Red Blood Cell (RBC) Count 2.65 mill/uL (4.20-5.40); White Blood Cell (WBC) Count 21.3 thou/uL (4.8-10.8)
[2020-11-13] MEDS: Enoxaparin Sodium 40 MG/0.4 ML SYRINGE SC SCH (08:38)
[2020-11-13] MEDS: Pantoprazole 40 MG VIAL IVP SCH (08:38)
[2020-11-13] MEDS: fentaNYL Citrate/PF 2,000 MCG in Sodium Chloride 0.9% 60 ML IV PRN (14:25)
[2020-11-13] MEDS: Fluconazole In NaCl,Iso-Osm 200 MG in Premix Bag 1 BAG IVPB SCH (17:22)
[2020-11-13] MEDS: SODIUM ACETATE IV SCH (22:14)
[2020-11-13] MEDS: CALCIUM CHLORIDE IV SCH (22:14)
[2020-11-13] MEDS: [UNRECOGNIZED DRUG - OTHER] IV SCH (22:14)
[2020-11-13] MEDS: POTASSIUM ACETATE IV SCH (22:14)
[2020-11-14] MEDS: fentaNYL Citrate/PF 2,000 MCG in Sodium Chloride 0.9% 60 ML IV PRN ×2 (03:35→15:06)
[2020-11-14 06:27] LABS: #Basophils 0.1 thou/uL (0.0-0.2); #Eosinphils 0.1 thou/uL (0.0-0.7); #Lymphocytes 2.1 thou/uL (1.20-3.40); #Monocytes 1.8 thou/uL (0.11-0.59); #Neutrophils 13.8 thou/uL (1.40-6.50); %Basophils 0.3 % (0.0-1.0); %Eosinophils 0.6 % (0.0-10.0); %Lymphocytes 11.6 % (21.0-51.0); %Monocytes 10.1 % (0.0-10.0); %Neutrophils 77.4 % (42.0-75.0); Hemoglobin 6.7 g/dL (12.0-16.0); Mean Corpuscular HGB CONC 32.3 g/dL (32.0-36.0); Mean Corpuscular Hemoglobin 28.6 pg (27.0-31.0); Mean Corpuscular Volume 88.4 fL (78.0-98.0); Mean Platelet Volume 7.2 fL (7.4-10.4); Platelet Count 644 thou/uL (130-400); RBC Distribution Width 15.1 % (11.5-14.5); Red Blood Cell (RBC) Count 2.35 mill/uL (4.20-5.40); White Blood Cell (WBC) Count 17.8 thou/uL (4.8-10.8)
[2020-11-14] MEDS: Piperacillin/Tazobactam 4.5 GM in Sodium Chloride 0.9% 100 ML IVPB SCH ×3 (06:35→18:16)
[2020-11-14 06:50] LABS: Anion Gap 13 mmol/L (10-20); BUN (Urea Nitrogen) 13 mg/dL (9.8-20.1); Calc. Creatinine Clearance 178 mL/min (70-130); Calcium 7.7 mg/dL (7.8-10.44); Carbon Dioxide 26 mmol/L (22-29); Chloride 103 mmol/L (98-107); Glucose 110 mg/dL (70-105); Magnesium 1.9 mg/dL (1.6-2.6); Potassium 4.6 mmol/L (3.5-5.1); Sodium 137 mmol/L (136-145)
[2020-11-14] MEDS: D5 1/2 NS w/20 mEq KCL 1,000 ML IV SCH (08:25)
[2020-11-14] MEDS: Pantoprazole 40 MG VIAL IVP SCH (08:26)
[2020-11-14] MEDS: Enoxaparin Sodium 40 MG/0.4 ML SYRINGE SC SCH (08:26)
[2020-11-14] MEDS: Fluconazole In NaCl,Iso-Osm 200 MG in Premix Bag 1 BAG IVPB SCH (16:49)
[2020-11-14] MEDS ORDERED: SODIUM ACETATE IV SCH (23:00)
[2020-11-14] MEDS ORDERED: CALCIUM GLUCONATE IV SCH (23:00)
[2020-11-14] MEDS ORDERED: POTASSIUM ACETATE IV SCH (23:00)
[2020-11-14] MEDS ORDERED: [UNRECOGNIZED DRUG - OTHER] IV SCH (23:00)
[2020-11-15] MEDS: POTASSIUM ACETATE IV SCH ×2 (00:18)
[2020-11-15] MEDS: SODIUM ACETATE IV SCH ×2 (00:18)
[2020-11-15] MEDS: CALCIUM GLUCONATE IV SCH (00:18)
[2020-11-15] MEDS: [UNRECOGNIZED DRUG - OTHER] IV SCH (00:18)
[2020-11-15] MEDS: CALCIUM CHLORIDE IV SCH (00:18)
[2020-11-15] MEDS: [UNRECOGNIZED DRUG - OTHER] IV SCH (00:18)
[2020-11-15] MEDS: Piperacillin/Tazobactam 4.5 GM in Sodium Chloride 0.9% 100 ML IVPB SCH ×5 (00:28→23:47)
[2020-11-15] MEDS: D5 1/2 NS w/20 mEq KCL 1,000 ML IV SCH (00:32)
[2020-11-15] MEDS: fentaNYL Citrate/PF 2,000 MCG in Sodium Chloride 0.9% 60 ML IV PRN ×3 (01:04→23:48)
[2020-11-15 06:55] LABS: #Eosinphils 0.2 thou/uL (0.0-0.7); #Monocytes 1.5 thou/uL (0.11-0.59); #Neutrophils 10.3 thou/uL (1.40-6.50); %Basophils 0.3 % (0.0-1.0); %Eosinophils 1.1 % (0.0-10.0); %Lymphocytes 14.5 % (21.0-51.0); %Monocytes 10.5 % (0.0-10.0); %Neutrophils 73.6 % (42.0-75.0); Hemoglobin 7.8 g/dL (12.0-16.0); Mean Corpuscular HGB CONC 32.3 g/dL (32.0-36.0); Mean Corpuscular Hemoglobin 28.9 pg (27.0-31.0); Mean Corpuscular Volume 89.2 fL (78.0-98.0); Mean Platelet Volume 7.3 fL (7.4-10.4); Platelet Count 687 thou/uL (130-400); RBC Distribution Width 14.7 % (11.5-14.5); Red Blood Cell (RBC) Count 2.71 mill/uL (4.20-5.40)
[2020-11-15] MEDS: Pantoprazole 40 MG VIAL IVP SCH (08:47)
[2020-11-15] MEDS: Enoxaparin Sodium 40 MG/0.4 ML SYRINGE SC SCH (08:47)
[2020-11-16] MEDS: [UNRECOGNIZED DRUG - OTHER] IV SCH ×2 (00:34→23:41)
[2020-11-16] MEDS: POTASSIUM ACETATE IV SCH ×2 (00:34→23:41)
[2020-11-16] MEDS: SODIUM ACETATE IV SCH ×2 (00:34→23:41)
[2020-11-16] MEDS: CALCIUM GLUCONATE IV SCH ×2 (00:34→23:41)
[2020-11-16] MEDS: Ondansetron PF 4 MG/2 ML Vial IVP PRN ×3 (04:52→18:42)
[2020-11-16] MEDS: Pantoprazole 40 MG VIAL IVP SCH (05:50)
[2020-11-16] MEDS: Piperacillin/Tazobactam 4.5 GM in Sodium Chloride 0.9% 100 ML IVPB SCH ×4 (06:17→23:41)
[2020-11-16 06:27] LABS: #Eosinphils 0.1 thou/uL (0.0-0.7); #Lymphocytes 1.9 thou/uL (1.20-3.40); #Monocytes 1.2 thou/uL (0.11-0.59); #Neutrophils 10.2 thou/uL (1.40-6.50); %Basophils 0.2 % (0.0-1.0); %Lymphocytes 14.3 % (21.0-51.0); %Monocytes 8.9 % (0.0-10.0); %Neutrophils 75.6 % (42.0-75.0); Hemoglobin 8.2 g/dL (12.0-16.0); Mean Corpuscular HGB CONC 30.8 g/dL (32.0-36.0); Mean Corpuscular Hemoglobin 27.4 pg (27.0-31.0); Mean Corpuscular Volume 88.8 fL (78.0-98.0); Mean Platelet Volume 7.1 fL (7.4-10.4); Platelet Count 744 thou/uL (130-400); RBC Distribution Width 14.9 % (11.5-14.5); Red Blood Cell (RBC) Count 2.99 mill/uL (4.20-5.40); White Blood Cell (WBC) Count 13.6 thou/uL (4.8-10.8)
[2020-11-16] MEDS: Promethazine HCl 25 MG/ML VIAL IM PRN ×3 (08:23→21:53)
[2020-11-16] MEDS: Enoxaparin Sodium 40 MG/0.4 ML SYRINGE SC SCH (08:25)
[2020-11-16] MEDS: D5 1/2 NS w/20 mEq KCL 1,000 ML IV SCH (12:14)
[2020-11-16] MEDS: Calcium Carbonate 500 MG ChewTAB PO PRN (20:48)
[2020-11-17] MEDS: Calcium Carbonate 500 MG ChewTAB PO PRN ×7 (00:25→23:35)
[2020-11-17] MEDS: fentaNYL Citrate/PF 2,000 MCG in Sodium Chloride 0.9% 60 ML IV PRN (00:25)
[2020-11-17] MEDS: Ondansetron PF 4 MG/2 ML Vial IVP PRN ×4 (01:19→21:42)
[2020-11-17] MEDS: Promethazine HCl 25 MG/ML VIAL IM PRN ×3 (03:11→17:26)
[2020-11-17] MEDS: Piperacillin/Tazobactam 4.5 GM in Sodium Chloride 0.9% 100 ML IVPB SCH ×4 (06:26→23:35)
[2020-11-17 06:34] LABS: #Basophils 0.1 thou/uL (0.0-0.2); #Eosinphils 0.1 thou/uL (0.0-0.7); #Lymphocytes 1.1 thou/uL (1.20-3.40); #Monocytes 1.2 thou/uL (0.11-0.59); #Neutrophils 7.2 thou/uL (1.40-6.50); %Basophils 0.6 % (0.0-1.0); %Eosinophils 1.1 % (0.0-10.0); %Lymphocytes 11.1 % (21.0-51.0); %Monocytes 12.9 % (0.0-10.0); %Neutrophils 74.3 % (42.0-75.0); Hemoglobin 8.4 g/dL (12.0-16.0); Mean Corpuscular HGB CONC 32.8 g/dL (32.0-36.0); Mean Corpuscular Volume 88.4 fL (78.0-98.0); Platelet Count 676 thou/uL (130-400); RBC Distribution Width 14.8 % (11.5-14.5); Red Blood Cell (RBC) Count 2.89 mill/uL (4.20-5.40); White Blood Cell (WBC) Count 9.6 thou/uL (4.8-10.8)
[2020-11-17 07:07] LABS: ALT (SGPT) 16 U/L (8-55); AST (SGOT) 20 U/L (5-34); Albumin 2.3 g/dL (3.5-5.0); Alkaline Phosphatase 84 U/L (40-110); Anion Gap 15 mmol/L (10-20); BUN (Urea Nitrogen) 9 mg/dL (9.8-20.1); Bilirubin, Total 0.3 mg/dL (0.2-1.2); Calc. Creatinine Clearance 185 mL/min (70-130); Calcium 8.3 mg/dL (7.8-10.44); Carbon Dioxide 26 mmol/L (22-29); Chloride 102 mmol/L (98-107); Globulin 3.9 g/dL (2.4-3.5); Glucose 107 mg/dL (70-105); Magnesium 1.8 mg/dL (1.6-2.6); Phosphorus 4.2 mg/dL (2.3-4.7); Potassium 4.2 mmol/L (3.5-5.1); Protein, Total 6.2 g/dL (6.0-8.3); Sodium 139 mmol/L (136-145)
[2020-11-17] MEDS: Pantoprazole 40 MG VIAL IVP SCH (07:56)
[2020-11-17] MEDS: Enoxaparin Sodium 40 MG/0.4 ML SYRINGE SC SCH (07:56)
[2020-11-17] MEDS: D5 1/2 NS w/20 mEq KCL 1,000 ML IV SCH (17:27)
[2020-11-17] MEDS: SODIUM ACETATE IV SCH (23:35)
[2020-11-17] MEDS: CALCIUM GLUCONATE IV SCH (23:35)
[2020-11-17] MEDS: [UNRECOGNIZED DRUG - OTHER] IV SCH (23:35)
[2020-11-17] MEDS: POTASSIUM ACETATE IV SCH (23:35)
[2020-11-18] MEDS: Ondansetron PF 4 MG/2 ML Vial IVP PRN (05:03)
[2020-11-18] MEDS: Piperacillin/Tazobactam 4.5 GM in Sodium Chloride 0.9% 100 ML IVPB SCH ×4 (05:03→23:35)
[2020-11-18] MEDS: fentaNYL Citrate/PF 2,000 MCG in Sodium Chloride 0.9% 60 ML IV PRN (05:30)
[2020-11-18] MEDS: Pantoprazole 40 MG VIAL IVP SCH (08:45)
[2020-11-18] MEDS: Enoxaparin Sodium 40 MG/0.4 ML SYRINGE SC SCH (08:45)
[2020-11-18] MEDS: Promethazine HCl 25 MG/ML VIAL IM PRN (08:49)
[2020-11-18] MEDS: [UNRECOGNIZED DRUG - OTHER] IV SCH (23:03)
[2020-11-18] MEDS: SODIUM ACETATE IV SCH (23:03)
[2020-11-18] MEDS: CALCIUM GLUCONATE IV SCH (23:03)
[2020-11-18] MEDS: POTASSIUM ACETATE IV SCH (23:03)
[2020-11-18] MEDS: D5 1/2 NS w/20 mEq KCL 1,000 ML IV SCH (23:03)
[2020-11-19] MEDS: Piperacillin/Tazobactam 4.5 GM in Sodium Chloride 0.9% 100 ML IVPB SCH ×2 (05:18→12:40)
[2020-11-19] MEDS: fentaNYL Citrate/PF 2,000 MCG in Sodium Chloride 0.9% 60 ML IV PRN (07:04)
[2020-11-19] MEDS: Enoxaparin Sodium 40 MG/0.4 ML SYRINGE SC SCH (09:54)
[2020-11-19] MEDS: Pantoprazole 40 MG VIAL IVP SCH (09:55)
[2020-11-19] MEDS ORDERED: Hydrocodone-Acetamin 15 ML UDCUP PO PRN (13:59)
[2020-11-19] MEDS ORDERED: Acetaminophen 650 MG/20.3 ML UDCUP PO PRN (17:06)
[2020-11-19] MEDS ORDERED: Ondansetron ORAL SOLN. 4 MG/5 ML UDCUP PO PRN (17:23)
[2020-11-19] MEDS ORDERED: Ondansetron ODT 8 MG TAB PO PRN (17:23)
[2020-11-19] MEDS ORDERED: Ondansetron ODT 4 MG TAB PO PRN (17:23)
[2020-11-19] MEDS ORDERED: Ondansetron ODT 8 MG TAB SL PRN (17:23)
[2020-11-19] MEDS: Pregabalin 50 MG CAP PO SCH (20:12)
[2020-11-19] MEDS: risperiDONE 1 MG TAB PO SCH (20:12)
[2020-11-19] MEDS: Hydrocodone-Acetamin 15 ML UDCUP PO PRN (20:12)
[2020-11-19] MEDS: tiZANidine HCl 4 MG TAB PO SCH (20:12)
[2020-11-19] MEDS: Amlodipine 5 MG TAB PO SCH (20:13)
[2020-11-19] MEDS: traZODone HCl 50 MG TAB PO SCH (20:13)
[2020-11-19] MEDS: busPIRone HCl 5 MG TAB PO SCH (20:13)
[2020-11-19] MEDS: Melatonin 3 MG TAB PO SCH (20:14)
[2020-11-20] MEDS: Hydrocodone-Acetamin 15 ML UDCUP PO PRN ×3 (04:40→16:58)
[2020-11-20] MEDS: tiZANidine HCl 4 MG TAB PO SCH ×2 (08:23→22:19)
[2020-11-20] MEDS: Enoxaparin Sodium 40 MG/0.4 ML SYRINGE SC SCH (08:23)
[2020-11-20] MEDS: Pregabalin 50 MG CAP PO SCH ×3 (08:23→22:19)
[2020-11-20] MEDS: Cholecalciferol 1,000 UNITS (25 MCG) TAB PO SCH (10:05)
[2020-11-20] MEDS: Aspirin 81 mg Enteric Coated Tablet PO SCH (10:06)
[2020-11-20] MEDS: busPIRone HCl 5 MG TAB PO SCH ×4 (10:06→22:21)
[2020-11-20] MEDS: Multivit, Chewable SF 1 TAB PO SCH (10:06)
[2020-11-20] MEDS: Multivitamin W/ Minerals 1 TAB PO SCH (10:07)
[2020-11-20] MEDS: Pantoprazole 40 MG VIAL IVP SCH (10:07)
[2020-11-20] MEDS ORDERED: Ondansetron PF 4 MG/2 ML Vial IVP PRN (11:35)
[2020-11-20] MEDS: Ondansetron ODT 4 MG TAB PO PRN ×2 (12:10→16:58)
[2020-11-20] MEDS ORDERED: Iopamidol-370 76% 500 ML 1 ML ONE (14:03)
[2020-11-20] MEDS ORDERED: Iopamidol 370 76% 50 ML VIAL FS ONE (14:03)
[2020-11-20] MEDS: traZODone HCl 50 MG TAB PO SCH (22:19)
[2020-11-20] MEDS: Melatonin 3 MG TAB PO SCH (22:20)
[2020-11-20] MEDS: risperiDONE 1 MG TAB PO SCH (22:21)
[2020-11-20] MEDS: Amlodipine 5 MG TAB PO SCH (22:21)
[2020-11-20] MEDS: [UNRECOGNIZED DRUG - OTHER] IV SCH (22:27)
[2020-11-20] MEDS: SODIUM ACETATE IV SCH (22:27)
[2020-11-20] MEDS: FAT EMULSION IV SCH (22:27)
[2020-11-20] MEDS: SODIUM CHLORIDE IV SCH (22:27)
[2020-11-21] MEDS: Hydrocodone-Acetamin 15 ML UDCUP PO PRN ×4 (05:50→22:49)
[2020-11-21] MEDS ORDERED: Promethazine HCl 25 MG/ML VIAL SLOW IVP PRN (08:26)
[2020-11-21] MEDS ORDERED: Ondansetron HCl/PF 4 MG/2 ML Vial IVP PRN (08:26)
[2020-11-21] MEDS ORDERED: Promethazine HCl 25 MG/ML VIAL IM PRN (08:26)
[2020-11-21] MEDS: Ondansetron ODT 4 MG TAB PO PRN ×2 (09:33→13:40)
[2020-11-21] MEDS: Aspirin 81 mg Enteric Coated Tablet PO SCH (09:33)
[2020-11-21] MEDS: Cholecalciferol 1,000 UNITS (25 MCG) TAB PO SCH (09:33)
[2020-11-21] MEDS: tiZANidine HCl 4 MG TAB PO SCH ×2 (09:33→20:01)
[2020-11-21] MEDS: Multivitamin W/ Minerals 1 TAB PO SCH (09:33)
[2020-11-21] MEDS: busPIRone HCl 5 MG TAB PO SCH ×4 (09:33→20:03)
[2020-11-21] MEDS: Multivit, Chewable SF 1 TAB PO SCH (09:33)
[2020-11-21] MEDS: Pantoprazole 40 MG VIAL IVP SCH ×2 (09:33→20:05)
[2020-11-21] MEDS: Enoxaparin Sodium 40 MG/0.4 ML SYRINGE SC SCH (09:33)
[2020-11-21] MEDS: Pregabalin 50 MG CAP PO SCH ×3 (09:34→20:02)
[2020-11-21] MEDS ORDERED: PROPOFOL 200 MG/20 ML VIAL ONE (10:08)
[2020-11-21] MEDS ORDERED: Lidocaine 1% PF 5 ML VIAL ONE (10:08)
[2020-11-21] MEDS: Melatonin 3 MG TAB PO SCH (20:01)
[2020-11-21] MEDS: risperiDONE 1 MG TAB PO SCH (20:03)
[2020-11-21] MEDS: traZODone HCl 50 MG TAB PO SCH (20:04)
[2020-11-21] MEDS: Amlodipine 5 MG TAB PO SCH (20:04)
[2020-11-21] MEDS: SODIUM ACETATE IV SCH (22:50)
[2020-11-21] MEDS: [UNRECOGNIZED DRUG - OTHER] IV SCH (22:50)
[2020-11-21] MEDS: SODIUM CHLORIDE IV SCH (22:50)
[2020-11-21] MEDS: FAT EMULSION IV SCH (22:50)
[2020-11-22] MEDS: Calcium Carbonate 500 MG ChewTAB PO PRN (03:06)
[2020-11-22] MEDS: Multivitamin W/ Minerals 1 TAB PO SCH (08:59)
[2020-11-22] MEDS: busPIRone HCl 5 MG TAB PO SCH ×4 (08:59→20:36)
[2020-11-22] MEDS: tiZANidine HCl 4 MG TAB PO SCH ×2 (08:59→20:36)
[2020-11-22] MEDS: Aspirin 81 mg Enteric Coated Tablet PO SCH (08:59)
[2020-11-22] MEDS: Cholecalciferol 1,000 UNITS (25 MCG) TAB PO SCH (09:00)
[2020-11-22] MEDS: Pregabalin 50 MG CAP PO SCH ×3 (09:01→20:35)
[2020-11-22] MEDS: Pantoprazole 40 MG VIAL IVP SCH ×2 (09:02→20:39)
[2020-11-22] MEDS: Enoxaparin Sodium 40 MG/0.4 ML SYRINGE SC SCH (09:02)
[2020-11-22] MEDS: Multivit, Chewable SF 1 TAB PO SCH (09:05)
[2020-11-22] MEDS: Hydrocodone-Acetamin 15 ML UDCUP PO PRN ×3 (10:11→20:35)
[2020-11-22] MEDS: Melatonin 3 MG TAB PO SCH (20:36)
[2020-11-22] MEDS: risperiDONE 1 MG TAB PO SCH (20:36)
[2020-11-22] MEDS: Amlodipine 5 MG TAB PO SCH (20:37)
[2020-11-22] MEDS: traZODone HCl 50 MG TAB PO SCH (21:11)
[2020-11-23] MEDS: Hydrocodone-Acetamin 15 ML UDCUP PO PRN ×2 (02:22→09:42)
[2020-11-23 05:19] VITALS: TEMP 98.3
[2020-11-23] MEDS: Calcium Carbonate 500 MG ChewTAB PO PRN (06:18)
[2020-11-23] MEDS: busPIRone HCl 5 MG TAB PO SCH (08:27)
[2020-11-23] MEDS: Aspirin 81 mg Enteric Coated Tablet PO SCH (08:27)
[2020-11-23] MEDS: Cholecalciferol 1,000 UNITS (25 MCG) TAB PO SCH (08:28)
[2020-11-23] MEDS: Multivit, Chewable SF 1 TAB PO SCH (08:28)
[2020-11-23] MEDS: Multivitamin W/ Minerals 1 TAB PO SCH (08:28)
[2020-11-23] MEDS: Enoxaparin Sodium 40 MG/0.4 ML SYRINGE SC SCH (08:28)
[2020-11-23] MEDS: tiZANidine HCl 4 MG TAB PO SCH (08:28)
[2020-11-23] MEDS: Pregabalin 50 MG CAP PO SCH (08:29)
[2020-11-23 08:45] VITALS: BP 117/76
== END 2020-11-23 11:05 | disposition home health service (06) | DRG 329 ==
LOC: ERS 11:09 → SDC 13:47 → SURG B 15:55
PROVIDERS: ADMIT Surgery; ATTEND Surgery
PROC: 0DQ80ZZ Repair Small Intestine, Open Approach (ICD-10-PCS; 2020-11-03)
PROC: 02HV33Z Insertion of Infusion Device into Superior Vena Cava, Percutaneous Approach (ICD-10-PCS; 2020-11-03)
PROC: 0JB80ZZ Excision of Abdomen Subcutaneous Tissue and Fascia, Open Approach (ICD-10-PCS; 2020-11-07)
PROC: 3E0436Z Introduction of Nutritional Substance into Central Vein, Percutaneous Approach (ICD-10-PCS; 2020-11-07)
PROC: 0D1B0Z4 Bypass Ileum to Cutaneous, Open Approach (ICD-10-PCS; principal; 2020-11-12)
PROC: 0JB80ZZ Excision of Abdomen Subcutaneous Tissue and Fascia, Open Approach (ICD-10-PCS; 2020-11-12)
PROC: 30233N1 Transfusion of Nonautologous Red Blood Cells into Peripheral Vein, Percutaneous Approach (ICD-10-PCS; 2020-11-14)
PROC: 0DJ08ZZ Inspection of Upper Intestinal Tract, Via Natural or Artificial Opening Endoscopic (ICD-10-PCS; 2020-11-21)
DX: K95.89 Other complications of other bariatric procedure (principal); K65.0 Generalized (acute) peritonitis; A41.9 Sepsis, unspecified organism; R65.21 Severe sepsis with septic shock; L03.311 Cellulitis of abdominal wall; T81.31XA Disruption of external operation (surgical) wound, not elsewhere classified, initial encounter; K63.2 Fistula of intestine; Z68.41 Body mass index [BMI] 40.0-44.9, adult; E46 Unspecified protein-calorie malnutrition; D62 Acute posthemorrhagic anemia; K56.7 Ileus, unspecified; K95.81 Infection due to other bariatric procedure; Z20.822 Contact with and (suspected) exposure to COVID-19; Y83.8 Other surgical procedures as the cause of abnormal reaction of the patient, or of later complication, without mention of misadventure at the time of the procedure; K21.00 Gastro-esophageal reflux disease with esophagitis, without bleeding; G89.29 Other chronic pain; F41.9 Anxiety disorder, unspecified; F32.9 Major depressive disorder, single episode, unspecified; I10 Essential (primary) hypertension; E66.01 Morbid (severe) obesity due to excess calories; E83.42 Hypomagnesemia; D69.6 Thrombocytopenia, unspecified; K66.0 Peritoneal adhesions (postprocedural) (postinfection); M79.7 Fibromyalgia; R13.19 Other dysphagia; Z79.899 Other long term (current) drug therapy; Z90.49 Acquired absence of other specified parts of digestive tract; Z90.710 Acquired absence of both cervix and uterus; Z90.721 Acquired absence of ovaries, unilateral; Z88.2 Allergy status to sulfonamides; Z88.8 Allergy status to other drugs, medicaments and biological substances; Z79.82 Long term (current) use of aspirin
CPT/HCPCS: 36415; 36416; 36430; 71045; 74177; 80048; 80053; 83605; 83735; 84100; 85025; 86850; 86900; 86901; 87040; 96365; C1751; C9113; J1100; J1450; J1650; J1815; J1885; J1940; J2001; J2250; J2405; J2543; J2550; J2704; J2997; J3010; J3370; J3411; J3475; J3480; J3490; J7030; P9016; Q0162; Q9967; S0028; U0002

== ENCOUNTER 2020-12-14 16:48 | Inpatient (IN) | payer MEDICARE ==
[2020-12-14] MEDS ORDERED: Calcium Carbonate 500 MG ChewTAB PO PRN ×2 (20:22→21:30)
[2020-12-14] MEDS ORDERED: Acetaminophen 325 MG TAB PO PRN (20:22)
[2020-12-14] MEDS ORDERED: Ondansetron ODT 4 MG TAB PO PRN (20:22)
[2020-12-14] MEDS ORDERED: Ondansetron PF 4 MG/2 ML Vial IVP PRN (20:22)
[2020-12-14] MEDS: Sodium Chloride 0.9% 1,000 ML IV SCH (20:50)
[2020-12-14 21:14] LABS: Phosphorus 4.4 mg/dL (2.3-4.7)
[2020-12-14 21:18] LABS: ALT (SGPT) 21 U/L (8-55); AST (SGOT) 24 U/L (5-34); Albumin 3.2 g/dL (3.5-5.0); Alkaline Phosphatase 108 U/L (40-110); Anion Gap 16 mmol/L (10-20); BUN (Urea Nitrogen) 51 mg/dL (9.8-20.1); Bilirubin, Total 0.3 mg/dL (0.2-1.2); Calc. Creatinine Clearance 26 mL/min (70-130); Calcium 8.5 mg/dL (7.8-10.44); Carbon Dioxide 24 mmol/L (22-29); Chloride 91 mmol/L (98-107); Globulin 3.8 g/dL (2.4-3.5); Glucose 87 mg/dL (70-105); Lipase 76 U/L (8-78); Magnesium 1.9 mg/dL (1.6-2.6); Potassium 4.1 mmol/L (3.5-5.1); Sodium 127 mmol/L (136-145)
--- NOTE | 2020-12-14 21:20 | PDOC.HHP ---
Hospitalist HPI Dizziness and weakness History of Present Illness: PCP: Dr. Centeno The patient is a 55-year-old female with a past medical history significant for obesity, GERD, anxiety and depression that presents to the hospital as a direct admit via EMS from [facility] in [facility] for the above complaint. The patient was admitted to our hospital on 10/29/2020 for a scheduled Wes-en-Y gastric bypass and adhesiolysis with Dr. Yarbrough. Subsequently, she was readmitted on 11/03/20 for abdominal wall cellulitis and a small bowel leak. She underwent subsequent repair with washout and had an ileostomy placed. She was discharged home with [facility] and a wound VAC. Since discharge, the patient reports that she has had decreased oral intake and decreased appetite. Over the last couple days she has had dizziness when standing up. She reports the room is spinning. She has fallen twice. She bumped her head on the carpet. She denies LOC or any focal motor deficits. She denies any neck pain changes in vision or speech. She denies any chest pain, heart palpitations or swelling to her lower extremities. She denies any shortness of breath cough, wheezing or hemoptysis. She denies any sick contacts. She denies any fever or chills. She has been compliant on her medications and there have been no major changes to her home medication regimen. She denies any abdominal pain, vomiting. She reports that her ileostomy output has been unchanged since discharge. She denies any blood in her stools. She denies any dysuria or hematuria. ED Course: [facility]: Presented hypotensive with a blood pressure of 95/53, normal heart rate, normal respirations, normal SPO2. Afebrile. Sodium 125, chloride 83, BUN 53, creatinine 4.6, glucose 111 WBCs 8.1, hemoglobin 10.9, hematocrit 35.6, platelets 335 LA 3.8 LFTs unremarkable Troponin negative Covid negative Medications administration: 1 L normal saline Zofran 8 mg Allergies/Adverse Reactions: Allergy/AdvReac Type Severity Reaction Status Date / Time naproxen [From Aleve] Allergy Severe Anaphylaxis Verified 11/04/20 00:05 Sulfa (Sulfonamide Allergy Severe Rash Verified 11/04/20 00:05 Antibiotics) Home Medications: Medication Instructions Recorded Confirmed Type Amlodipine Besylate [amLODIPine 2.5 mg PO HS 10/23/20 12/14/20 History Besylate] Aspirin [Aspirin EC] 81 mg PO DAILY 10/23/20 12/14/20 History Cholecalciferol (Vitamin D3) 5,000 unit PO DAILY 10/23/20 12/14/20 History [Vitamin D3] Hydroxychloroquine Sulfate 200 mg PO BID 10/23/20 12/14/20 History Krill/Om-3/DHA/EPA/Phospho/Ast 2 cap PO HS 10/23/20 12/14/20 History [Krill Oil 500 mg Softgel] Meloxicam 15 mg PO DAILY 10/23/20 12/14/20 History Metoprolol Succinate [Toprol XL] 12.5 mg PO HS 10/23/20 12/14/20 History Multivitamin With Minerals 1 tab PO DAILY 10/23/20 12/14/20 History [Multiple Vitamin] Pantoprazole Sodium 40 mg PO DAILY 10/23/20 12/14/20 History Pravastatin Sodium 40 mg PO HS 10/23/20 12/14/20 History Pregabalin 100 mg PO TID 10/23/20 12/14/20 History Tofacitinib Citrate [Xeljanz Xr] 11 mg PO DAILY 10/23/20 12/14/20 History Venlafaxine HCl [Venlafaxine HCl 300 mg PO DAILY 10/23/20 12/14/20 History ER] buPROPion HCl 75 mg PO DAILY 10/23/20 12/14/20 History busPIRone HCl [Buspirone HCl] 15 mg PO QID 10/23/20 12/14/20 History oxyCODONE HCl [Oxaydo] 7.5 mg PO QID PRN 10/23/20 12/14/20 History risperiDONE 2 mg PO HS 10/23/20 12/14/20 History tiZANidine HCl [Tizanidine HCl] 4 mg PO BID 10/23/20 12/14/20 History traZODone HCl [Trazodone HCl] 50 mg PO HS 10/23/20 12/14/20 History Hydrocodone-APAP 7.5-325/15 15 ml PO Q4H PRN #300 ml 10/30/20 12/14/20 Rx Acetaminophen [Tylenol Elixir] 650 mg PO Q4H PRN udcup 11/22/20 12/14/20 Rx Calcium Carbonate [Tums] 500 mg PO Q4H PRN tab 11/22/20 12/14/20 Rx Melatonin 18 mg PO HS tab 11/22/20 12/14/20 Rx Albuterol Sulfate HFA (OR) 2 puff FS BID 12/14/20 12/14/20 History [Proventil Hfa (or)] Albuterol Sulfate [Albuterol 2.5 mg NEB Q6H PRN 12/14/20 12/14/20 History Sulfate Neb] [place]-3 Fatty Acids/Fish Oil 1 cap PO DAILY 12/14/20 12/14/20 History [[place] 3 1,000 mg Softgel] metFORMIN [Glucophage] 500 mg PO BID-WM 12/14/20 12/14/20 History Past History: PMHx: Anxiety and depression, GERD, HTN, arthritis, fibromyalgia, HLD, obesity, HTN PSHx: Wes-en-Y gastric bypass (10/21), back surgery to lumbar spine (2000), appendectomy, cholecystectomy, hysterectomy, partial thyroidectomy FHx: Noncontributory to this case Social: Lives with her spouse in [facility] [place]. Disabled. Quit smoking cigarettes 2019. No history of illicit drug use or heavy alcohol intake. Hospitalist HPI ROS All other systems reviewed; all pertinent +/- noted in HPI/Subj Hospitalist Exam Vitals: Vital Signs (12 hours) Temp Pulse Resp BP Pulse Ox 12/14/20 20:22 96.0 F L 75 16 109/58 L 100 Weight Weight 260 lb General Appearance: NAD, awake alert. negative: ill appearing Eye: PERRL, anicteric sclera ENT: normocephalic atraumatic, dry oral mucosa Neck: supple, no lymphadenopathy, no carotid bruit Heart: RRR, no murmur, no gallops, no rubs, normal peripheral pulses Respiratory: CTAB, no wheezes, no rales, no ronchi, normal chest expansion, no tachypnea Gastrointestinal: soft, non-tender, non-distended, normal bowel sounds, no guarding, no rigidity Gastrointestinal - other findings: Right lower quadrant ileostomy, liquid stool, stoma pink Extremities: no cyanosis, no edema Neurological: cranial nerve grossly intact, no focal deficits Musculoskeletal: normal tone, normal strength Psychiatric: normal affect, A&O x 3 Hospitalist Results Result Diagrams: 12/14/20 20:44 Lab results: [facility]: Sodium 125, potassium 4.2, chloride 83, CO2 25, BUN 53, creatinine 4.86, glucose 111, calcium 9.3 T bili 0.53, ALP 107, AST 35, ALT 25 WBC 8.1, hemoglobin 10.9, hematocrit 35.6, platelets 335 Lactic acid 3.8 Troponin negative Covid negative Serum osmolality 266.6 Hospitalist H&P A/P (1) BIBIANA (acute kidney injury) Code(s): N17.9 - ACUTE KIDNEY FAILURE, UNSPECIFIED Status: Acute (2) Dehydration Code(s): E86.0 - DEHYDRATION Status: Acute (3) Hyponatremia with decreased serum osmolality Code(s): E87.1 - HYPO-OSMOLALITY AND HYPONATREMIA Status: Acute (4) Dizziness Code(s): R42 - DIZZINESS AND GIDDINESS Status: Acute (5) Falls Code(s): W19.XXXA - UNSPECIFIED FALL, INITIAL ENCOUNTER Status: Acute (6) Lactic acidosis Code(s): E87.2 - ACIDOSIS Status: Acute (7) Status post gastric bypass for obesity Code(s): Z98.84 - BARIATRIC SURGERY STATUS Status: Chronic (8) Anxiety and depression Code(s): F41.9 - ANXIETY DISORDER, UNSPECIFIED; F32.9 - MAJOR DEPRESSIVE DISORDER, SINGLE EPISODE, UNSPECIFIED Status: Chronic (9) Hypertension Code(s): I10 - ESSENTIAL (PRIMARY) HYPERTENSION Status: Chronic (10) Fibromyalgia Status: Chronic (11) GERD (gastroesophageal reflux disease) Code(s): K21.9 - GASTRO-ESOPHAGEAL REFLUX DISEASE WITHOUT ESOPHAGITIS Status: Chronic Plan: A patient status post Wes-en-Y with subsequent ileostomy and wound VAC presented to [facility] for dizziness and generalized weakness. #BIBIANA Presented creatinine 4.16, was 0.73 (11/17/2020) Presented GFR 10, was 83 (11/17/2020) Likely prerenal, BUN 51. Received 1 L normal saline at [facility] ER. Continue IV fluid resuscitation. Order renal ultrasound. Check urine creatinine and urine sodium and CPK. Avoid nephrotoxic medications. Recheck labs, no improvement consider nephrology consultation. #Dehydration Status post Wes-en-Y with decreased oral intake and appetite. BUN 53 #Hyponatremia decrease serum osmolality Presented sodium 125, serum osmolality 266.6 Received 1 L normal saline freestanding ER. Continue maintenance normal saline IV fluids. Monitor urine output. N.p.o. except for meds. No free water. Recheck sodium level. #Dizziness Patient reports when standing up. EMS reported severe orthostatic hypotension. Presented BP 95/53 at freestanding ER. Likely related to problem #2. Upon assessment, no focal motor deficits, no concern for stroke We will check orthostatics every shift. Fall precautions. #Falls Reports 2 falls when attempting to stand up. No LOC, no focal motor deficits. No concern for acute intracranial process. Fall precautions. Consult PT. #Lactic acidosis Presented lactic acid 3.8, no leukocytosis. Likely secondary to fluid volume depletion. No concern for infection at this time. Received 1 L normal saline freestanding ER Recheck lactic acid level. Continue IV fluids. #Status post gastric bypass for obesity Underwent Wes-en-Y on 10/29/[address] Yarbrough Readmission 11/03/2020 for complications, underwent small bowel leak repair with washout and subsequent ileostomy and wound VAC. Discharge 11/23/2020 Home with home health and wound VAC and plans for future reversal of ileostomy. Consult Dr. Yarbrough #Anxiety depression Denies SI/HI Restart risperidone, Lyrica, buspirone, Wellbutrin. #Hypertension Presented hypotensive in freestanding ER. Upon assessment, normotensive. Restart home dose metoprolol and Norvasc with hold parameters. #Fibromyalgia Restart home dose Xeljanz. #GERD Restart home dose Protonix. SCDs for DVT prophylaxis. No pharmacological DVT prophylaxis. Protonix for GI prophylaxis. CODE STATUS is full code. Discussed the case with attending physician, Dr. Cordova who agrees with plan of care.
[2020-12-14 21:22] LABS: Troponin I 0.042 ng/mL (< 0.028)
[2020-12-14] MEDS ORDERED: Albuterol Sulfate 2.5 mg/3 ml Neb NEB PRN (21:30)
--- NOTE | 2020-12-14 23:34 | RAD ---
Exam: Chest one view HISTORY:Baseline exam. Patient is being admitted. Comparison: 11/03/2020 FINDINGS: Cardiac silhouette: Normal Aorta: Unremarkable Pulmonary vessels: Normal Costophrenic angles: Clear LUNGS: No masses or consolidation. Pneumothorax: None Osseous abnormalities: None Ventricles: Stable eventration of the medial left diaphragmatic hernia. Stable dorsal column stimulat or. IMPRESSION: No acute cardiopulmonary process.
[2020-12-15] MEDS ORDERED: tiZANidine HCl 4 MG TAB PO SCH ×2 (00:15→09:00)
[2020-12-15] MEDS ORDERED: Atorvastatin Calcium 40 MG TAB PO SCH (00:15)
[2020-12-15] MEDS ORDERED: busPIRone HCl 10 MG TAB PO SCH ×2 (00:15→09:00)
[2020-12-15] MEDS ORDERED: Amlodipine 5 MG TAB PO SCH ×2 (00:15→21:00)
[2020-12-15] MEDS ORDERED: Melatonin 3 MG TAB PO SCH ×2 (00:15→21:00)
[2020-12-15] MEDS ORDERED: risperiDONE 1 MG TAB PO SCH (00:15)
[2020-12-15] MEDS ORDERED: Atorvastatin Calcium 10 MG TAB PO SCH ×2 (00:15→21:00)
[2020-12-15] MEDS ORDERED: Pregabalin 50 MG CAP PO SCH ×2 (00:15→09:00)
[2020-12-15] MEDS ORDERED: Hydroxychloroquine Sulfate 200 MG TAB PO SCH (00:15)
[2020-12-15 00:30] LABS: Lactic Acid 2.6 mmol/L (0.5-2.2)
[2020-12-15 00:39] LABS: Troponin I 0.047 ng/mL (< 0.028)
[2020-12-15 02:58] LABS: #Basophils 0.1 thou/uL (0.0-0.2); #Eosinphils 0.2 thou/uL (0.0-0.7); #Lymphocytes 2.5 thou/uL (1.20-3.40); #Monocytes 0.8 thou/uL (0.11-0.59); #Neutrophils 4.1 thou/uL (1.40-6.50); %Basophils 0.7 % (0.0-1.0); %Eosinophils 2.6 % (0.0-10.0); %Lymphocytes 33.2 % (21.0-51.0); %Monocytes 10.4 % (0.0-10.0); %Neutrophils 53.1 % (42.0-75.0); Hemoglobin 9.2 g/dL (12.0-16.0); Mean Corpuscular HGB CONC 32.3 g/dL (32.0-36.0); Mean Corpuscular Hemoglobin 27.1 pg (27.0-31.0); Mean Corpuscular Volume 83.8 fL (78.0-98.0); Mean Platelet Volume 8.6 fL (7.4-10.4); Platelet Count 266 thou/uL (130-400); RBC Distribution Width 14.1 % (11.5-14.5); White Blood Cell (WBC) Count 7.7 thou/uL (4.8-10.8)
[2020-12-15 03:36] LABS: Anion Gap 17 mmol/L (10-20); BUN (Urea Nitrogen) 51 mg/dL (9.8-20.1); Calc. Creatinine Clearance 29 mL/min (70-130); Calcium 8.1 mg/dL (7.8-10.44); Carbon Dioxide 21 mmol/L (22-29); Chloride 92 mmol/L (98-107); Glucose 79 mg/dL (70-105); Potassium 3.9 mmol/L (3.5-5.1); Sodium 126 mmol/L (136-145)
[2020-12-15] MEDS: Sodium Chloride 0.9% 1,000 ML IV SCH ×3 (05:56→22:12)
[2020-12-15] MEDS: Albuterol 200 PUFF (6.7GM INHALER) INH SCH ×2 (07:57→20:55)
[2020-12-15] MEDS ORDERED: Bisacodyl 5 MG TAB PO PRN (07:59)
[2020-12-15] MEDS ORDERED: HYDROcodone/Acetaminophen 5/325 mg Tablet PO PRN (07:59)
[2020-12-15] MEDS ORDERED: hydrALAZINE 20 MG/ML VIAL SLOW IVP PRN (07:59)
[2020-12-15] MEDS ORDERED: Cepastat Lozenges 1 LOZ PO PRN (07:59)
[2020-12-15] MEDS ORDERED: GUAIFENESIN SF SOLN 200 MG/10 ML UDCUP PO PRN (07:59)
[2020-12-15] MEDS ORDERED: Senokot S 8.6-50 MG TAB PO PRN (07:59)
[2020-12-15] MEDS ORDERED: Loratadine 10 MG TAB PO PRN (07:59)
[2020-12-15] MEDS ORDERED: Sodium Chloride 0.65% Nasal 44 ML BOT EA NARE PRN (07:59)
[2020-12-15] MEDS ORDERED: Zolpidem Tartrate 5 MG TAB PO PRN (07:59)
[2020-12-15] MEDS ORDERED: Loperamide HCl 2 MG CAP PO PRN (07:59)
[2020-12-15] MEDS ORDERED: Melatonin 3 MG TAB PO PRN (08:03)
[2020-12-15] MEDS ORDERED: Albuterol 200 PUFF (6.7GM INHALER) INH PRN (08:14)
[2020-12-15] MEDS ORDERED: TOFACITINIB CITRATE 11 MG PO SCH (09:00)
[2020-12-15] MEDS: Fish Oil 1,000 MG CAP PO SCH (10:24)
[2020-12-15] MEDS: Aspirin 81 mg Enteric Coated Tablet PO SCH (10:24)
[2020-12-15] MEDS: buPROPion 75 MG TAB PO SCH (10:25)
[2020-12-15] MEDS: busPIRone HCl 10 MG TAB PO SCH ×2 (10:25→20:37)
[2020-12-15] MEDS: tiZANidine HCl 4 MG TAB PO SCH ×2 (10:25→20:34)
[2020-12-15] MEDS: Sodium Bicarbonate Tab 325 MG TAB PO SCH ×3 (10:26→20:35)
[2020-12-15] MEDS: Hydroxychloroquine Sulfate 200 MG TAB PO SCH ×2 (10:26→20:35)
[2020-12-15] MEDS: Pregabalin 50 MG CAP PO SCH ×3 (10:27→20:35)
[2020-12-15] MEDS: Cholecalciferol 1,000 UNITS (25 MCG) TAB PO SCH (10:28)
[2020-12-15] MEDS: Multivitamin W/ Minerals 1 TAB PO SCH (10:28)
[2020-12-15 12:01] LABS: Bacteria/HPF 2+ HPF (None Seen); Bilirubin Negative (Negative); Blood, Urine Negative (Negative); Clarity Clear (Clear); Glucose, Urine (Dipstick) Normal (Negative); Ketone, Urine Negative (Negative); Leukocyte Negative Leu/uL (Negative); Nitrite Negative (Negative); Protein, Urine (Dipstick) 20 mg/dL (Neg-Trace); RBC/HPF 0-3 HPF (0-3); Renal Epithelial 0-3 HPF (None Seen); Specific Gravity, Urine 1.013 (1.002-1.036); Urobilinogen Normal mg/dL (Less than 2); WBC/HPF 0-3 HPF (0-3)
--- NOTE | 2020-12-15 12:04 | PDOC.HOSPP ---
- Subjective Encounter Date: 12/15/20 Encounter Time: 10:30 Subjective: Patient seen and examined bedside today, no overnight event, patient is feeling overall weak, - Objective Vital Signs & Weight: Vital Signs (12 hours) Temp Pulse Resp BP BP BP Pulse Ox 12/15/20 11:15 81/57 L 12/15/20 11:00 97 16 101/56 L 101/60 79/47 L 12/15/20 08:00 98.7 F 81 16 111/54 L 94 L 12/15/20 02:08 75 Weight Weight 260 lb I&O: 12/14/20 12/15/20 12/16/20 06:59 06:59 06:59 Intake Total 1440 Output Total 0 1250 Balance 1440 -1250 Result Diagrams: 12/15/20 02:42 12/15/20 02:42 Radiology Reviewed by me: Yes EKG Reviewed by me: Yes Hospitalist ROS - Review of Systems Constitutional: reports: weakness, malaise. denies: fever, chills, sweats, other ENT: denies: ear pain, ear discharge, nose pain, nose discharge, nose congestion, mouth pain, mouth swelling, throat pain, throat swelling, other Respiratory: denies: cough, dry, shortness of breath, hemoptysis, SOB with excertion, pleuritic pain, sputum, wheezing, other Cardiovascular: denies: chest pain, palpitations, orthopnea, paroxysmal noc. dyspnea, edema, light headedness, other Gastrointestinal: denies: nausea, vomiting, abdominal pain, diarrhea, constipation, melena, hematochezia, other Genitourinary: denies: dysuria, frequency, incontinence, hematuria, retention, other Musculoskeletal: denies: neck pain, shoulder pain, arm pain, back pain, hand pain, leg pain, foot pain, other - Medication Medications: Active Medications Generic Name Dose Route Start Last Admin Trade Name Freq PRN Reason Stop Dose Admin Albuterol Sulfate 2 puff 12/15/20 06:30 12/15/20 07:57 Albuterol 200 Puff (6.7gm Inhaler) INH 2 puff BID-RT TANK Administration Aspirin 81 mg 12/15/20 09:00 12/15/20 10:24 Aspirin 81 Mg Enteric Coated Tablet PO 81 mg DAILY TANK Administration Bupropion HCl 75 mg 12/15/20 09:00 12/15/20 10:25 Bupropion 75 Mg Tab PO 75 mg DAILY TANK Administration Buspirone HCl 10 mg 12/15/20 09:00 12/15/20 10:25 Buspirone Hcl 10 Mg Tab PO 10 mg BID TANK Administration Cholecalciferol 5,000 units 12/15/20 09:00 12/15/20 10:28 Cholecalciferol 1,000 Units (25 Mcg) Tab PO 5,000 units DAILY TANK Administration Fish Oil 1,000 mg 12/15/20 09:00 12/15/20 10:24 Fish Oil 1,000 Mg Cap PO 1,000 mg DAILY TANK Administration Hydroxychloroquine Sulfate 200 mg 12/15/20 09:00 12/15/20 10:26 Hydroxychloroquine Sulfate 200 Mg Tab PO 200 mg BID TANK Administration Iron/Minerals/Multivitamins 1 tab 12/15/20 09:00 12/15/20 10:28 Multivitamin W/ Minerals 1 Tab PO 1 tab DAILY TANK Administration Pantoprazole Sodium 40 mg 12/15/20 09:00 12/15/20 10:26 Pantoprazole 40 Mg Tab PO 40 mg DAILY TANK Administration Pregabalin 50 mg 12/15/20 09:00 12/15/20 10:27 Pregabalin 50 Mg Cap PO 50 mg TID [facility] Administration Sodium Bicarbonate 325 mg 12/15/20 09:00 12/15/20 10:26 Sodium Bicarbonate Tab 325 Mg Tab PO 325 mg TID TANK Administration Tizanidine HCl 2 mg 12/15/20 09:00 12/15/20 10:25 Tizanidine Hcl 4 Mg Tab PO 2 mg BID TANK Administration Hospitalist Exam Vitals: Vital Signs (12 hours) Temp Pulse Resp BP BP BP Pulse Ox 12/15/20 11:15 81/57 L 12/15/20 11:00 97 16 101/56 L 101/60 79/47 L 12/15/20 08:00 98.7 F 81 16 111/54 L 94 L 12/15/20 02:08 75 Weight Weight 260 lb General Appearance: NAD, awake alert Eye: PERRL, anicteric sclera ENT: normocephalic atraumatic, no oropharyngeal lesions Neck: supple, symmetric, no JVD, no thyromegaly Heart: RRR, no murmur, no gallops, no rubs Respiratory: no wheezes, no rales, no ronchi Gastrointestinal: soft, non-tender, non-distended, normal bowel sounds Gastrointestinal - other findings: Ileostomy noted, surgical site with a dressing, Extremities: no cyanosis, no clubbing, no edema Skin: normal turgor, no lesions Neurological: no focal deficits Musculoskeletal: normal tone, normal strength, no muscle wasting Psychiatric: normal affect, normal behavior, A&O x 3 Hosp A/P (1) BIBIANA (acute kidney injury) Code(s): N17.9 - ACUTE KIDNEY FAILURE, UNSPECIFIED Status: Acute Plan: Suspecting prerenal etiology from a increased output from ileostomy (2) Dehydration Code(s): E86.0 - DEHYDRATION Status: Acute Plan: Due to increased output from ileostomy (3) Dizziness Code(s): R42 - DIZZINESS AND GIDDINESS Status: Acute Plan: Due to orthostatic dizziness from volume depletion (4) Falls Code(s): W19.XXXA - UNSPECIFIED FALL, INITIAL ENCOUNTER Status: Acute Plan: Due to orthostatic dizziness (5) Hyponatremia with decreased serum osmolality Code(s): E87.1 - HYPO-OSMOLALITY AND HYPONATREMIA Status: Acute Plan: Due to dehydration (6) Lactic acidosis Code(s): E87.2 - ACIDOSIS Status: Acute Plan: Due to volume depletion (7) Anxiety and depression Code(s): F41.9 - ANXIETY DISORDER, UNSPECIFIED; F32.9 - MAJOR DEPRESSIVE DISORDER, SINGLE EPISODE, UNSPECIFIED Status: Chronic (8) Fibromyalgia Status: Chronic (9) GERD (gastroesophageal reflux disease) Code(s): K21.9 - GASTRO-ESOPHAGEAL REFLUX DISEASE WITHOUT ESOPHAGITIS Status: Chronic (10) Hypertension Code(s): I10 - ESSENTIAL (PRIMARY) HYPERTENSION Status: Chronic (11) Status post gastric bypass for obesity Code(s): Z98.84 - BARIATRIC SURGERY STATUS Status: Chronic - Plan old records reviewed/req, PT/OT, DVT proph w/SCDs Patient is getting renal ultrasound, We will consult nephrology We will change to inpatient status We will continue with IV fluid We will continue with her home medication and I have changed her home medication dose based on renal clearance We will sodium bicarbonate 325 mg 3 times daily Plan of care discussed with the patient in detail. We will repeat labs tomorrow General surgery has been consulted We will hold on blood pressure medication for now
[2020-12-15 12:14] LABS: Creatinine, Urine 144.95 mg/dL (47-110); Sodium, Urine Less than 20 mmol/L (Not Available)
--- NOTE | 2020-12-15 12:56 | CON ---
DATE OF CONSULTATION: 12/15/2020 CHIEF COMPLAINT: Nausea, vomiting, dehydration. HISTORY OF PRESENT ILLNESS: The patient is a 55-year-old female, who underwent a gastric bypass in late October. She presented on November 03 with sepsis and was found to have a leak. Underwent exploratory laparotomy, drainage of abscess. 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 She says she had not urinated in a week at home. She came into the emergency room very dehydrated after a near syncopal episode. PAST MEDICAL HISTORY: Significant for morbid obesity, chronic pain, depression, anxiety, hypertension. PAST SURGERIES: Hysterectomy, appendectomy, carpal tunnel, hiatal hernia repair, and gastric bypass as well as small bowel resection and ileostomy. MEDICATIONS: Include; 1. Albuterol. 2. Metformin. 3. Aspirin. 4. Pravastatin. ALLERGIES: NAPROSYN. SOCIAL HISTORY: She is and lives in [place]. PHYSICAL EXAMINATION: VITAL SIGNS: Her temperature is 98.7, pulse 81, blood pressure 101/56. GENERAL: She is awake and alert. HEENT: She has an abrasion from the fall on her right forehead. Pupils are equal, round, and reactive. Extraocular movements are intact. ABDOMEN: Obese and soft. She has healing granulating wounds in the midline and left upper quadrant. She has an ostomy bag on the right. LABORATORY DATA: Her white count is 7, H and H of 9 and 28, platelet count 266. Sodium 126, chloride 92, CO2 of 21. Her creatinine is 4.2, BUN of 51. ASSESSMENT: Severe volume depletion with acute renal insufficiency. PLAN: Hydration. Renal consult. Continue IV fluids. Dr. Yarbrough will be back on Thursday. Job ID: [id number]
--- NOTE | 2020-12-15 13:08 | CON ---
DATE OF CONSULTATION: 12/15/2020 SUBJECTIVE: Ms. Yeung is a 55-year-old white female, who was admitted for an acute kidney injury. This was associated with dizziness and decreased p.o. intake for the last several days. The patient mentioned that she is passing a lot of fluid from her ileostomy. We are now being consulted for acute kidney injury. Please note, she was also noted to be hypotensive. This has been going on for the last several days. The patient denies any nausea or vomiting or abdominal pain per se. No fever or chills associated with this problems. She is now admitted here for further management of her acute kidney injury. Please note, she was transferred from [facility] to [facility]. REVIEW OF SYSTEMS: Positive for increased discharge from the ileostomy. No nausea. No vomiting. Appetite is somewhat decreased. Positive for dizziness. Positive for fall. No fever or chills. No abdominal pain. No diarrhea. No constipation. No gross hematuria. No dysuria. No headache. Appetite is somewhat decreased. HOME MEDICATIONS: Included the following; 1. Albuterol 2.5 nebs q.6 p.r.n. 2. Amlodipine 2.5 mg-on hold. 3. bedtime. 4. Bupropion 75 mg daily. 5. Buspirone 15 mg daily. 6. Vitamin D3 one tab daily. 7. Hydrocodone p.r.n. 8. Hydroxychloroquine sulfate 200 mg p.o. b.i.d. 9. Metoprolol succinate 12.5 mg daily-on hold. 10. Protonix 40 mg tablet once daily. 11. Lyrica 50 mg p.o. t.i.d. 12. Risperidone 2 mg daily. 13. Sodium bicarbonate 325 mg p.o. t.i.d. 14. Normal saline at 125 mL/hour. PAST MEDICAL HISTORY: Rheumatoid arthritis, fibromyalgia, COPD, hypertension, morbid obesity, hyperlipidemia, depression/anxiety. PAST SURGICAL HISTORY: Recently status post Wes-en-Y bypass with adhesiolysis-complicated by abdominal wall cellulitis with bowel leak. The patient is status post ileostomy. SOCIAL HISTORY: The patient lives in [place]. . No children. Education, 1 year college. Used to be working with [employer]. No alcohol intake. No smoking. No IV drug abuse. ALLERGIES: NAPROSYN. TRAUMA: Status post fall. IMMUNIZATION: Up to date. HOSPITALIZATIONS: Please see past medical history. FAMILY HISTORY: No family history of ESRD. PHYSICAL EXAMINATION: VITAL SIGNS: Blood pressure 81/57, heart rate 97, respiratory rate 16, O2 saturation 94%. GENERAL: The patient is awake, sitting comfortable, not in overt distress. SKIN: Adequate turgor. HEENT: Slightly pale conjunctivae. Anicteric sclerae. No neck mass. No carotid bruits. No JVD. CHEST: No deformities. LUNGS: Clear breath sounds. No wheezing. No crackles. HEART: Normal sinus rhythm. No murmur. No gallops. No rubs. ABDOMEN: Globular, soft, nontender. No masses. Positive for ileostomy. EXTREMITIES: No edema. No deformities. NEUROLOGIC: Awake and oriented to 3 spheres. Moving all extremities. No tremors. No asterixis. No ataxia. LABORATORY DATA: Laboratories of December 15, 2020, white count 7.7, hemoglobin 9.2. Sodium 126, potassium 3.9, chloride 92, carbon dioxide 21, BUN 51, creatinine 4.2, calcium 8.1. Troponin I 0.040. Further review of the serum creatinine shows the following; on December 14, 2020, creatinine 4.61; on November 17, 2020, creatinine 0.73. Urinalysis of December 15, 2020, showed specific gravity was high, no pigmented granular casts, rbc's 0 to 3, wbc's 0 to 3. Urine sodium is less than 20, urine creatinine 144.95. Renal ultrasound pending. ASSESSMENT AND PLAN: Acute kidney injury, consider hemodynamically-mediated renal dysfunction. Urine sediment was relatively benign. Urine chemistries showed low urine sodium and a fractional excretion of sodium that is less than 1%. Renal ultrasound is pending. Agree with empiric volume repletion. Agree to hold off blood pressure medication due to the hypotension. Also, we will discontinue meloxicam, which may be also aggravating her renal dysfunction. There is no indication for any dialytic intervention. Recheck basic metabolic profile and CBC in a.m. 2. Hyponatremia - secondary to hypovolemic hyponatremia - I anticipate improvement with current NS Job ID: [id number] [facility]
--- NOTE | 2020-12-15 15:05 | ULT ---
BILATERAL RENAL ULTRASOUND: Date: 12/15/2020 HISTORY: Acute kidney injury. TECHNIQUE: Multiplanar Reddy scale and color Doppler images were obtained in a renal ultrasound. FINDINGS: The kidneys are normal in echogenicity without hydronephrosis or calculi and measure 12.0 and 12.7 cm in length on the right and left, respectively. Limited visualization of the urinary bladder is unrem arkable. IMPRESSION: Unremarkable renal ultrasound. POS: EAA
[2020-12-15] MEDS: Atorvastatin Calcium 10 MG TAB PO SCH (20:35)
[2020-12-15] MEDS: risperiDONE 1 MG TAB PO SCH (20:37)
[2020-12-15] MEDS ORDERED: Non-Formulary Item 1 EACH (Amlodipine Besylate [Amlodipine Besylate] 2.5 MG Tablet) PO SCH (21:00)
[2020-12-16] MEDS: Sodium Chloride 0.9% 1,000 ML IV SCH ×4 (00:21→23:46)
[2020-12-16 03:58] LABS: #Eosinphils 0.2 thou/uL (0.0-0.7); #Lymphocytes 1.5 thou/uL (1.20-3.40); #Monocytes 0.9 thou/uL (0.11-0.59); #Neutrophils 5.1 thou/uL (1.40-6.50); %Basophils 0.2 % (0.0-1.0); %Lymphocytes 19.9 % (21.0-51.0); %Monocytes 12.2 % (0.0-10.0); %Neutrophils 65.8 % (42.0-75.0); Hemoglobin 9.1 g/dL (12.0-16.0); Mean Corpuscular HGB CONC 31.9 g/dL (32.0-36.0); Mean Corpuscular Volume 84.7 fL (78.0-98.0); Mean Platelet Volume 8.7 fL (7.4-10.4); Platelet Count 256 thou/uL (130-400); RBC Distribution Width 13.9 % (11.5-14.5); Red Blood Cell (RBC) Count 3.38 mill/uL (4.20-5.40); White Blood Cell (WBC) Count 7.7 thou/uL (4.8-10.8)
[2020-12-16 04:18] LABS: ALT (SGPT) 18 U/L (8-55); AST (SGOT) 22 U/L (5-34); Albumin 2.8 g/dL (3.5-5.0); Alkaline Phosphatase 88 U/L (40-110); Anion Gap 15 mmol/L (10-20); BUN (Urea Nitrogen) 37 mg/dL (9.8-20.1); Bilirubin, Total 0.2 mg/dL (0.2-1.2); Calc. Creatinine Clearance 55 mL/min (70-130); Calcium 8.4 mg/dL (7.8-10.44); Carbon Dioxide 19 mmol/L (22-29); Chloride 104 mmol/L (98-107); Globulin 3.4 g/dL (2.4-3.5); Glucose 97 mg/dL (70-105); Potassium 3.7 mmol/L (3.5-5.1); Protein, Total 6.2 g/dL (6.0-8.3); Sodium 134 mmol/L (136-145)
[2020-12-16] MEDS: Albuterol 200 PUFF (6.7GM INHALER) INH SCH ×2 (07:54→19:33)
[2020-12-16] MEDS: Cholecalciferol 1,000 UNITS (25 MCG) TAB PO SCH (08:08)
[2020-12-16] MEDS: busPIRone HCl 10 MG TAB PO SCH ×2 (08:08→21:11)
[2020-12-16] MEDS: Fish Oil 1,000 MG CAP PO SCH (08:09)
[2020-12-16] MEDS: Sodium Bicarbonate Tab 325 MG TAB PO SCH ×3 (08:09→21:13)
[2020-12-16] MEDS: Pregabalin 50 MG CAP PO SCH ×3 (08:09→21:11)
[2020-12-16] MEDS: buPROPion 75 MG TAB PO SCH (08:09)
[2020-12-16] MEDS: Aspirin 81 mg Enteric Coated Tablet PO SCH (08:09)
[2020-12-16] MEDS: tiZANidine HCl 4 MG TAB PO SCH ×2 (08:10→21:07)
[2020-12-16] MEDS: Hydroxychloroquine Sulfate 200 MG TAB PO SCH ×2 (08:10→21:13)
[2020-12-16] MEDS: Multivitamin W/ Minerals 1 TAB PO SCH (08:10)
--- NOTE | 2020-12-16 10:49 | PDOC.HOSPP ---
- Subjective Encounter Date: 12/16/20 Encounter Time: 10:20 Subjective: Patient is tolerating her diet, no overnight event, her renal function improving, today she had paroxysmal tachycardia, - Objective Vital Signs & Weight: Vital Signs (12 hours) Temp Pulse Resp BP BP BP BP 12/16/20 08:00 97.8 F 114 H 16 129/58 L 12/16/20 03:25 98.0 F 74 20 99/56 L 110/59 L 104/53 L 12/15/20 23:45 71 18 Pulse Ox 12/16/20 08:00 98 12/16/20 03:25 98 12/15/20 23:45 Weight Admit Weight 260 lb Weight 258 lb 12.8 oz I&O: 12/15/20 12/16/20 12/17/20 06:59 06:59 06:59 Intake Total 1440 1854 Output Total 0 3325 Balance 1440 -1471 Result Diagrams: 12/16/20 03:20 12/16/20 03:20 EKG Reviewed by me: Yes Hospitalist ROS - Review of Systems ENT: denies: ear pain, ear discharge, nose pain, nose discharge, nose congestion, mouth pain, mouth swelling, throat pain, throat swelling, other Respiratory: denies: cough, dry, shortness of breath, hemoptysis, SOB with excertion, pleuritic pain, sputum, wheezing, other Cardiovascular: denies: chest pain, palpitations, orthopnea, paroxysmal noc. dyspnea, edema, light headedness, other Gastrointestinal: denies: nausea, vomiting, abdominal pain, diarrhea, constipation, melena, hematochezia, other Genitourinary: denies: dysuria, frequency, incontinence, hematuria, retention, other Musculoskeletal: denies: neck pain, shoulder pain, arm pain, back pain, hand pain, leg pain, foot pain, other - Medication Medications: Active Medications Generic Name Dose Route Start Last Admin Trade Name Freq PRN Reason Stop Dose Admin Albuterol Sulfate 2 puff 12/15/20 06:30 12/16/20 07:54 Albuterol 200 Puff (6.7gm Inhaler) INH 2 puff BID-RT TANK Administration Aspirin 81 mg 12/15/20 09:00 12/16/20 08:09 Aspirin 81 Mg Enteric Coated Tablet PO 81 mg DAILY TANK Administration Atorvastatin Calcium 10 mg 12/15/20 21:00 12/15/20 20:35 Atorvastatin Calcium 10 Mg Tab PO 10 mg HS TANK Administration Bupropion HCl 75 mg 12/15/20 09:00 12/16/20 08:09 Bupropion 75 Mg Tab PO 75 mg DAILY TANK Administration Buspirone HCl 10 mg 12/15/20 09:00 12/16/20 08:08 Buspirone Hcl 10 Mg Tab PO 10 mg BID TANK Administration Cholecalciferol 5,000 units 12/15/20 09:00 12/16/20 08:08 Cholecalciferol 1,000 Units (25 Mcg) Tab PO 5,000 units DAILY TANK Administration Fish Oil 1,000 mg 12/15/20 09:00 12/16/20 08:09 Fish Oil 1,000 Mg Cap PO 1,000 mg DAILY TANK Administration Hydroxychloroquine Sulfate 200 mg 12/15/20 09:00 12/16/20 08:10 Hydroxychloroquine Sulfate 200 Mg Tab PO 200 mg BID TANK Administration Sodium Chloride 1,000 mls @ 125 mls/hr 12/15/20 08:15 12/16/20 08:11 Normal Saline 0.9% IV 1,000 mls .Q8H TANK Administration Iron/Minerals/Multivitamins 1 tab 12/15/20 09:00 12/16/20 08:10 Multivitamin W/ Minerals 1 Tab PO 1 tab DAILY TANK Administration Melatonin 9 mg 12/15/20 08:03 12/15/20 20:42 Melatonin 3 Mg Tab PO 9 mg HS PRN Administration Insomnia Pantoprazole Sodium 40 mg 12/15/20 09:00 12/16/20 08:09 Pantoprazole 40 Mg Tab PO 40 mg DAILY TANK Administration Pregabalin 50 mg 12/15/20 09:00 12/16/20 08:09 Pregabalin 50 Mg Cap PO 50 mg TID TANK Administration Risperidone 2 mg 12/15/20 21:00 12/15/20 20:37 Risperidone 1 Mg Tab PO 2 mg HS TANK Administration Sodium Bicarbonate 325 mg 12/15/20 09:00 12/16/20 08:09 Sodium Bicarbonate Tab 325 Mg Tab PO 325 mg TID TANK Administration Tizanidine HCl 2 mg 12/15/20 09:00 12/16/20 08:10 Tizanidine Hcl 4 Mg Tab PO 2 mg BID TANK Administration Hospitalist Exam Vitals: Vital Signs (12 hours) Temp Pulse Resp BP BP BP BP 12/16/20 08:00 97.8 F 114 H 16 129/58 L 12/16/20 03:25 98.0 F 74 20 99/56 L 110/59 L 104/53 L 12/15/20 23:45 71 18 Pulse Ox 12/16/20 08:00 98 12/16/20 03:25 98 12/15/20 23:45 Weight Admit Weight 260 lb Weight 258 lb 12.8 oz General Appearance: NAD, awake alert Eye: PERRL, anicteric sclera ENT: normocephalic atraumatic, no oropharyngeal lesions Neck: supple, symmetric, no JVD, no thyromegaly Heart: RRR, no murmur, no gallops, no rubs Respiratory: no wheezes, no rales, no ronchi Gastrointestinal: soft, non-tender, non-distended, normal bowel sounds Gastrointestinal - other findings: Ileostomy in place, surgical site with the dressing Extremities: no clubbing, no edema Skin: normal turgor, no lesions Neurological: no focal deficits Musculoskeletal: normal tone, normal strength Psychiatric: normal affect, normal behavior Hosp A/P (1) BIBIANA (acute kidney injury) Code(s): N17.9 - ACUTE KIDNEY FAILURE, UNSPECIFIED Status: Acute (2) Dehydration Code(s): E86.0 - DEHYDRATION Status: Acute (3) Dizziness Code(s): R42 - DIZZINESS AND GIDDINESS Status: Acute (4) Falls Code(s): W19.XXXA - UNSPECIFIED FALL, INITIAL ENCOUNTER Status: Acute (5) Hyponatremia with decreased serum osmolality Code(s): E87.1 - HYPO-OSMOLALITY AND HYPONATREMIA Status: Acute (6) Lactic acidosis Code(s): E87.2 - ACIDOSIS Status: Acute (7) Anxiety and depression Code(s): F41.9 - ANXIETY DISORDER, UNSPECIFIED; F32.9 - MAJOR DEPRESSIVE DISORDER, SINGLE EPISODE, UNSPECIFIED Status: Chronic (8) Fibromyalgia Status: Chronic (9) GERD (gastroesophageal reflux disease) Code(s): K21.9 - GASTRO-ESOPHAGEAL REFLUX DISEASE WITHOUT ESOPHAGITIS Status: Chronic (10) Hypertension Code(s): I10 - ESSENTIAL (PRIMARY) HYPERTENSION Status: Chronic (11) Status post gastric bypass for obesity Code(s): Z98.84 - BARIATRIC SURGERY STATUS Status: Chronic - Plan old records reviewed/req Continue IV fluid today We will add metoprolol 12.5 mg twice daily Continue sodium bicarbonate We will repeat labs tomorrow General surgery following, ileostomy reversal will defer to them Ambulate as tolerated
[2020-12-16] MEDS ORDERED: Metoprolol Tartrate 25 MG TAB PO SCH (11:00)
--- NOTE | 2020-12-16 11:01 | PRG ---
DATE OF SERVICE: 12/16/2020 SUBJECTIVE: Ms. Yeung is a 55-year-old white female, who was admitted for an acute kidney injury/hyponatremia. I felt at that time she had a hypovolemic hyponatremia. Empiric volume repletion was done with this patient. Her renal function is actually much improved as well as the serum sodium. She voices no new complaints today. She denies any chest pain or shortness of breath. OBJECTIVE: VITAL SIGNS: Blood pressure 129/58, heart rate 114, respiratory rate 16, temperature 97.8, O2 saturation 100% on room air. GENERAL: Awake, alert, supine, comfortable, not in distress. SKIN: Adequate turgor. HEENT: Pinkish conjunctivae. Anicteric sclerae. NECK: No neck mass. No carotid bruits. No JVD. CHEST: No deformities. LUNGS: Clear breath sounds. No wheezing. No crackles. HEART: Normal sinus rhythm. No murmurs, gallops, or rubs. ABDOMEN: Globular, soft, nontender. Positive for ostomy. EXTREMITIES: No edema. No deformities. MEDICATIONS: On December 16, 2020, was reviewed. LABORATORY DATA: Laboratories of December 16, 2020, white count 7.7, hemoglobin 9.1. Sodium 134, potassium 3.7, chloride 104, carbon dioxide 19, BUN 37, creatinine 2.17, GFR 24 mL/minute. LFTs normal. Albumin 2.8. ASSESSMENT AND PLAN: 1. Acute kidney injury-this is hemodynamically mediated dysfunction, improving renal function with IV hydration. Her urine sediment did not show any pigmented granular casts and no evidence for acute tubular necrosis. She did have a low urine sodium. For the moment, I would continue current IV fluid. I do anticipate further improvement of the renal function. There is no indication for any dialytic intervention. 2. Hyponatremia, this is secondary to hypovolemic hyponatremia. Continue IV fluids. 3. Recheck basic met and CBC in a.m. Job ID: [id number]
--- NOTE | 2020-12-16 11:33 | PRG ---
DATE OF SERVICE: 12/16/2020 SUBJECTIVE: The patient is doing better. She has received some hydration. Her ostomy is putting a lot out. She is not having any significant pain. OBJECTIVE: VITAL SIGNS: Her temperature is 97.8, pulse 110, blood pressure 129/58. GENERAL: She is awake and alert. ABDOMEN: Soft, nondistended. The ostomy has put out like 1300 mL. She has also put out quite a bit of urine. LABORATORY DATA: Her sodium is 134, potassium 3.7, chloride 104. Her creatinine is down to 2.1 from 4.2. ASSESSMENT: Improving but with high-output ostomy. PLAN: Dr. Yarbrough will be here tomorrow. May need to give her some Imodium or something to just lower her gut down. Job ID: [id number]
[2020-12-16] MEDS: risperiDONE 1 MG TAB PO SCH (21:08)
[2020-12-16] MEDS: Atorvastatin Calcium 10 MG TAB PO SCH (21:12)
[2020-12-16] MEDS: Metoprolol Tartrate 25 MG TAB PO SCH (21:12)
[2020-12-17] MEDS: Albuterol 200 PUFF (6.7GM INHALER) INH SCH ×2 (07:35→19:16)
[2020-12-17] MEDS ORDERED: Pregabalin 50 MG CAP ONE (08:34)
[2020-12-17] MEDS ORDERED: tiZANidine HCl 4 MG TAB ONE (08:35)
[2020-12-17] MEDS ORDERED: Cholecalciferol 1,000 UNITS (25 MCG) TAB ONE (08:35)
[2020-12-17] MEDS ORDERED: Multivitamin W/ Minerals 1 TAB ONE (08:35)
[2020-12-17] MEDS ORDERED: Metoprolol Tartrate 25 MG TAB ONE (08:35)
[2020-12-17] MEDS ORDERED: Aspirin 81 mg Enteric Coated Tablet ONE (08:35)
[2020-12-17] MEDS ORDERED: busPIRone HCl 10 MG TAB ONE (08:35)
[2020-12-17] MEDS ORDERED: Fish Oil 1,000 MG CAP ONE (08:35)
[2020-12-17] MEDS ORDERED: Sodium Bicarbonate Tab 325 MG TAB ONE ×2 (08:35→15:01)
[2020-12-17] MEDS: Sodium Bicarbonate Tab 325 MG TAB PO SCH ×3 (09:46→21:59)
[2020-12-17] MEDS: Metoprolol Tartrate 25 MG TAB PO SCH ×2 (09:46→22:03)
[2020-12-17] MEDS: Pregabalin 50 MG CAP PO SCH ×3 (09:46→21:59)
--- NOTE | 2020-12-17 12:14 | PRG ---
DATE OF SERVICE: 12/17/2020 SUBJECTIVE: Ms. Yeung is a 55-year-old white female who was seen for an acute kidney injury that was hemodynamically-mediated renal dysfunction. She is improving with IV hydration. No new complaints today. No chest pain. No shortness of breath. OBJECTIVE: VITAL SIGNS: Stable. GENERAL: The patient is awake, alert, comfortable, not in distress. SKIN: Adequate turgor. HEENT: She has pinkish conjunctivae, anicteric sclerae. No neck mass. No carotid bruits. No JVD. CHEST: No deformities. LUNGS: Clear breath sounds. HEART: Normal sinus rhythm. No murmurs, gallops, or rubs. ABDOMEN: Globular, soft, nontender. No masses. EXTREMITIES: No edema, no deformities. MEDICATIONS: From December 17, 2020, reviewed. LABORATORY DATA: From December 17, 2020; sodium 141, potassium 4.1, chloride 112, carbon dioxide 19, BUN 22, creatinine 1.47, glucose 85. Phosphorus 2.9, calcium 8.5, magnesium 1.61. White count 7.8, hemoglobin 9.1. ASSESSMENT AND PLAN: 1. Acute kidney injury - hemodynamically-mediated dysfunction. Improved renal function with IV hydration. Serum creatinine much improved at 1.47. Continue IV fluids. 2. Hyponatremia secondary to hypovolemic hyponatremia, much improved. Serum sodium currently at 141. Overall, agree with current management. Job ID: [id number]
--- NOTE | 2020-12-17 13:02 | PDOC.HOSPP ---
- Subjective Encounter Date: 12/17/20 Encounter Time: 10:30 Subjective: Patient seen and examined. No new complaints. No overnight events - Objective Vital Signs & Weight: Weight Admit Weight 260 lb Weight 258 lb 12.8 oz I&O: 12/16/20 12/17/20 12/18/20 06:59 06:59 06:59 Intake Total 1854 500 Output Total 3325 1600 Balance -1471 -1100 Result Diagrams: 12/16/20 03:20 12/16/20 03:20 Hospitalist ROS - Review of Systems ENT: denies: ear pain, ear discharge, nose pain, nose discharge, nose congestio n, mouth pain, mouth swelling, throat pain, throat swelling, other Respiratory: denies: cough, dry, shortness of breath, hemoptysis, SOB with excertion, pleuritic pain, sputum, wheezing, other Cardiovascular: denies: chest pain, palpitations, orthopnea, paroxysmal noc. dyspnea, edema, light headedness, other Gastrointestinal: denies: nausea, vomiting, abdominal pain, diarrhea, constipation, melena, hematochezia, other Genitourinary: denies: dysuria, frequency, incontinence, hematuria, retention, other Musculoskeletal: denies: neck pain, shoulder pain, arm pain, back pain, hand pain, leg pain, foot pain, other - Medication Medications: Active Medications Generic Name Dose Route Start Last Admin Trade Name Freq PRN Reason Stop Dose Admin Hydrocodone Bitart/Acetaminophen 1 tab 12/15/20 07:59 12/16/20 15:30 Hydrocodone/Acetaminophen 5/325 Mg Tablet PO 1 tab Q4H PRN Administration Moderate Pain (4-6) Albuterol Sulfate 2 puff 12/15/20 06:30 12/17/20 07:35 Albuterol 200 Puff (6.7gm Inhaler) INH 2 puff BID-RT TANK Administration Aspirin 81 mg 12/15/20 09:00 12/16/20 08:09 Aspirin 81 Mg Enteric Coated Tablet PO 81 mg DAILY TANK Administration Atorvastatin Calcium 10 mg 12/15/20 21:00 12/16/20 21:12 Atorvastatin Calcium 10 Mg Tab PO 10 mg HS TANK Administration Bupropion HCl 75 mg 12/15/20 09:00 12/16/20 08:09 Bupropion 75 Mg Tab PO 75 mg DAILY TANK Administration Buspirone HCl 10 mg 12/15/20 09:00 12/16/20 21:11 Buspirone Hcl 10 Mg Tab PO 10 mg BID TANK Administration Cholecalciferol 5,000 units 12/15/20 09:00 12/16/20 08:08 Cholecalciferol 1,000 Units (25 Mcg) Tab PO 5,000 units DAILY TANK Administration Fish Oil 1,000 mg 12/15/20 09:00 12/16/20 08:09 Fish Oil 1,000 Mg Cap PO 1,000 mg DAILY TANK Administration Hydroxychloroquine Sulfate 200 mg 12/15/20 09:00 12/16/20 21:13 Hydroxychloroquine Sulfate 200 Mg Tab PO 200 mg BID TANK Administration Sodium Chloride 1,000 mls @ 125 mls/hr 12/15/20 08:15 12/16/20 23:46 Normal Saline 0.9% IV Not Given .Q8H TANK Iron/Minerals/Multivitamins 1 tab 12/15/20 09:00 12/16/20 08:10 Multivitamin W/ Minerals 1 Tab PO 1 tab DAILY TANK Administration Melatonin 9 mg 12/15/20 08:03 12/15/20 20:42 Melatonin 3 Mg Tab PO 9 mg HS PRN Administration Insomnia Metoprolol Tartrate 12.5 mg 12/16/20 21:00 12/16/20 21:12 Metoprolol Tartrate 25 Mg Tab PO 12.5 mg BID TANK Administration Pantoprazole Sodium 40 mg 12/15/20 09:00 12/16/20 08:09 Pantoprazole 40 Mg Tab PO 40 mg DAILY TANK Administration Pregabalin 50 mg 12/15/20 09:00 12/16/20 21:11 Pregabalin 50 Mg Cap PO 50 mg TID TANK Administration Risperidone 2 mg 12/15/20 21:00 12/16/20 21:08 Risperidone 1 Mg Tab PO 2 mg HS TANK Administration Sodium Bicarbonate 325 mg 12/15/20 09:00 12/16/20 21:13 Sodium Bicarbonate Tab 325 Mg Tab PO 325 mg TID TANK Administration Tizanidine HCl 2 mg 12/15/20 09:00 12/16/20 21:07 Tizanidine Hcl 4 Mg Tab PO 2 mg BID TANK Administration Hospitalist Exam Vitals: Weight Admit Weight 260 lb Weight 258 lb 12.8 oz General Appearance: NAD, awake alert Eye: PERRL, anicteric sclera ENT: normocephalic atraumatic, no oropharyngeal lesions Neck: supple, symmetric, no JVD, no thyromegaly Heart: RRR, no murmur, no gallops, no rubs Respiratory: no wheezes, no rales, no ronchi Gastrointestinal: soft, non-tender, non-distended, normal bowel sounds, no palpable masses Gastrointestinal - other findings: iliostomy in place Extremities: no cyanosis, no clubbing, no edema Skin: normal turgor, no lesions Neurological: no focal deficits Musculoskeletal: normal tone, normal strength, no muscle wasting Psychiatric: normal affect, normal behavior Hosp A/P (1) BIBIANA (acute kidney injury) Code(s): N17.9 - ACUTE KIDNEY FAILURE, UNSPECIFIED Status: Acute (2) Dehydration Code(s): E86.0 - DEHYDRATION Status: Acute (3) Dizziness Code(s): R42 - DIZZINESS AND GIDDINESS Status: Acute (4) Falls Code(s): W19.XXXA - UNSPECIFIED FALL, INITIAL ENCOUNTER Status: Acute (5) Hyponatremia with decreased serum osmolality Code(s): E87.1 - HYPO-OSMOLALITY AND HYPONATREMIA Status: Acute (6) Lactic acidosis Code(s): E87.2 - ACIDOSIS Status: Acute (7) Anxiety and depression Code(s): F41.9 - ANXIETY DISORDER, UNSPECIFIED; F32.9 - MAJOR DEPRESSIVE DISORDER, SINGLE EPISODE, UNSPECIFIED Status: Chronic (8) Fibromyalgia Status: Chronic (9) GERD (gastroesophageal reflux disease) Code(s): K21.9 - GASTRO-ESOPHAGEAL REFLUX DISEASE WITHOUT ESOPHAGITIS Status: Chronic (10) Hypertension Code(s): I10 - ESSENTIAL (PRIMARY) HYPERTENSION Status: Chronic (11) Status post gastric bypass for obesity Code(s): Z98.84 - BARIATRIC SURGERY STATUS Status: Chronic - Plan old records reviewed/req change IVF to ringer lactate 75 ml per hour continue metoprolol 12.5 mg twice daily Continue sodium bicarbonate We will repeat labs tomorrow General surgery following, ileostomy reversal will defer to them Ambulate as tolerated
[2020-12-17] MEDS ORDERED: Diphenoxylate HCl/Atropine Tablet PO PRN (13:18)
[2020-12-17] MEDS ORDERED: Thiamine 100 MG TAB PO SCH (13:30)
--- NOTE | 2020-12-17 13:35 | PRG ---
DATE OF SERVICE: 12/17/2020 SUBJECTIVE: Niki Yeung is a 55-year-old female admitted by hospitalist service for severe dehydration, prerenal azotemia, which is improved with hydration. Her creatinine has improved from 4.2 to 2.17. BUN from 51 to 37. Urine output is excellent more than 2 L a day. Sodium is admission, 134 today. She has been seen by Dr. Luong and id being hydrated. She is feeling better and ambulatory. The patient lives in [place]. She underwent on 10/29/2020 laparoscopic Wes-en-Y gastric bypass, enterolysis and 5 days later reported for an enteric leak, undergoing operations on November 03 and November 07 with eventual ileostomy. She dehisced and required final operation on November 12. She has had a wound VAC to her midline wound. This is almost completely healed. She has been encouraged on discharge to have aggressive hydration to avoid dehydration and thought she was doing pretty well until this event when she is admitted for weakness and found to be prerenal azotemia and dehydration. She has been rehydrated, doing well. She is doing much better. Ideally, her ileostomy should not be reversed for another 6 to 7 weeks. [facility] is seeing her. They have been having trouble manage her ileostomy. Today, they have been appliance on her, which is felt in the past. She has been having skin problems peristomal. At this point, the patient is recovering expect discharge home in the next day or two. Janeen will continue to follow her. I have talked to her about strategies to avoid readmission including that if she contacts me, we could arrange outpatient hydration in [facility] if she feels like [facility] check her outpatient labs if necessary. I would be seeing her in the office in the next 2 weeks. Job ID: [id number]
[2020-12-17] MEDS ORDERED: Heparin 5,000 UNITS/ML VIAL SC SCH (15:00)
[2020-12-17] MEDS ORDERED: Pregabalin 75 MG CAP ONE (15:02)
[2020-12-17] MEDS: Lactated Ringer's 1,000 ML IV SCH (16:17)
[2020-12-17] MEDS: buPROPion 75 MG TAB PO SCH (16:18)
[2020-12-17] MEDS: Heparin 5,000 UNITS/ML VIAL SC SCH ×2 (16:18→22:26)
[2020-12-17 16:46] LABS: Anion Gap 14 mmol/L (10-20); BUN (Urea Nitrogen) 22 mg/dL (9.8-20.1); Calc. Creatinine Clearance 81 mL/min (70-130); Calcium 8.5 mg/dL (7.8-10.44); Carbon Dioxide 19 mmol/L (22-29); Chloride 112 mmol/L (98-107); Glucose 85 mg/dL (70-105); Magnesium 1.6 mg/dL (1.6-2.6); Phosphorus 2.9 mg/dL (2.3-4.7); Potassium 4.1 mmol/L (3.5-5.1); Sodium 141 mmol/L (136-145)
[2020-12-17 17:32] LABS: #Eosinphils 0.2 thou/uL (0.0-0.7); #Lymphocytes 1.9 thou/uL (1.20-3.40); #Monocytes 0.8 thou/uL (0.11-0.59); #Neutrophils 4.9 thou/uL (1.40-6.50); %Basophils 0.1 % (0.0-1.0); %Eosinophils 3.1 % (0.0-10.0); %Lymphocytes 24.6 % (21.0-51.0); %Monocytes 9.9 % (0.0-10.0); %Neutrophils 62.3 % (42.0-75.0); Hemoglobin 9.1 g/dL (12.0-16.0); Mean Corpuscular HGB CONC 31.8 g/dL (32.0-36.0); Mean Corpuscular Hemoglobin 27.6 pg (27.0-31.0); Mean Corpuscular Volume 86.6 fL (78.0-98.0); Mean Platelet Volume 8.9 fL (7.4-10.4); Platelet Count 236 thou/uL (130-400); RBC Distribution Width 14.4 % (11.5-14.5); White Blood Cell (WBC) Count 7.9 thou/uL (4.8-10.8)
[2020-12-17] MEDS: Aspirin 81 mg Enteric Coated Tablet PO SCH (18:51)
[2020-12-17] MEDS: busPIRone HCl 10 MG TAB PO SCH ×2 (18:51→21:59)
[2020-12-17] MEDS: Hydroxychloroquine Sulfate 200 MG TAB PO SCH ×2 (18:51→22:03)
[2020-12-17] MEDS: Fish Oil 1,000 MG CAP PO SCH (18:51)
[2020-12-17] MEDS: Cholecalciferol 1,000 UNITS (25 MCG) TAB PO SCH (18:51)
[2020-12-17] MEDS: tiZANidine HCl 4 MG TAB PO SCH ×2 (18:52→21:58)
[2020-12-17] MEDS: Multivitamin W/ Minerals 1 TAB PO SCH (18:52)
[2020-12-17] MEDS: Sodium Chloride 0.9% 1,000 ML IV SCH (18:54)
[2020-12-17] MEDS: risperiDONE 1 MG TAB PO SCH (21:58)
[2020-12-17] MEDS: Atorvastatin Calcium 10 MG TAB PO SCH (22:03)
[2020-12-17] MEDS: Loperamide HCl 2 MG CAP PO SCH (22:04)
[2020-12-18 03:31] LABS: #Eosinphils 0.4 thou/uL (0.0-0.7); #Lymphocytes 2.9 thou/uL (1.20-3.40); #Monocytes 0.7 thou/uL (0.11-0.59); #Neutrophils 5.7 thou/uL (1.40-6.50); %Basophils 0.5 % (0.0-1.0); %Lymphocytes 29.5 % (21.0-51.0); %Monocytes 7.6 % (0.0-10.0); %Neutrophils 58.5 % (42.0-75.0); Hemoglobin 8.8 g/dL (12.0-16.0); Mean Corpuscular HGB CONC 31.8 g/dL (32.0-36.0); Mean Corpuscular Hemoglobin 27.2 pg (27.0-31.0); Mean Corpuscular Volume 85.5 fL (78.0-98.0); Mean Platelet Volume 8.4 fL (7.4-10.4); Platelet Count 242 thou/uL (130-400); RBC Distribution Width 14.4 % (11.5-14.5); Red Blood Cell (RBC) Count 3.25 mill/uL (4.20-5.40); White Blood Cell (WBC) Count 9.8 thou/uL (4.8-10.8)
[2020-12-18 03:53] LABS: ALT (SGPT) 17 U/L (8-55); AST (SGOT) 19 U/L (5-34); Albumin 2.7 g/dL (3.5-5.0); Alkaline Phosphatase 89 U/L (40-110); Anion Gap 11 mmol/L (10-20); BUN (Urea Nitrogen) 17 mg/dL (9.8-20.1); Bilirubin, Total 0.2 mg/dL (0.2-1.2); Calc. Creatinine Clearance 91 mL/min (70-130); Calcium 8.5 mg/dL (7.8-10.44); Carbon Dioxide 19 mmol/L (22-29); Chloride 114 mmol/L (98-107); Globulin 3.2 g/dL (2.4-3.5); Glucose 88 mg/dL (70-105); Magnesium 1.4 mg/dL (1.6-2.6); Phosphorus 3.2 mg/dL (2.3-4.7); Potassium 4.2 mmol/L (3.5-5.1); Protein, Total 5.9 g/dL (6.0-8.3); Sodium 140 mmol/L (136-145)
[2020-12-18] MEDS: Heparin 5,000 UNITS/ML VIAL SC SCH ×2 (06:09→14:52)
[2020-12-18] MEDS: Lactated Ringer's 1,000 ML IV SCH (06:09)
[2020-12-18] MEDS ORDERED: Magnesium 2 GM/50 ML 2 GM in Premix Bag 1 BAG IVPB SCH (07:45)
[2020-12-18] MEDS ORDERED: Magnesium Sulfate 2 GM in Sodium Chloride 0.9% 100 ML IVPB SCH (07:45)
[2020-12-18] MEDS: Albuterol 200 PUFF (6.7GM INHALER) INH SCH (08:11)
[2020-12-18] MEDS: Sodium Bicarbonate Tab 325 MG TAB PO SCH (10:27)
[2020-12-18] MEDS: Hydroxychloroquine Sulfate 200 MG TAB PO SCH (10:27)
[2020-12-18] MEDS: buPROPion 75 MG TAB PO SCH (10:27)
[2020-12-18] MEDS: Fish Oil 1,000 MG CAP PO SCH (10:27)
[2020-12-18] MEDS: Pregabalin 50 MG CAP PO SCH (10:28)
[2020-12-18] MEDS: tiZANidine HCl 4 MG TAB PO SCH (10:28)
[2020-12-18] MEDS: Aspirin 81 mg Enteric Coated Tablet PO SCH (10:28)
[2020-12-18] MEDS: Multivitamin W/ Minerals 1 TAB PO SCH (10:28)
[2020-12-18] MEDS: Loperamide HCl 2 MG CAP PO SCH (10:29)
[2020-12-18] MEDS: Cholecalciferol 1,000 UNITS (25 MCG) TAB PO SCH (10:29)
[2020-12-18] MEDS: Metoprolol Tartrate 25 MG TAB PO SCH (10:29)
[2020-12-18] MEDS: busPIRone HCl 10 MG TAB PO SCH (10:29)
--- NOTE | 2020-12-18 10:56 | PDOC.DS.DS ---
Provider Date of Admission: 12/15/20 07:36 Date of Discharge: 12/18/20 Admitting Provider: Shruthi Serna MD Consultations: General Surgery, Nephrology Primary Care Physician: Unknown Course Hospital Course: 55-year-old female with a past medical history significant for obesity, GERD, anxiety and depression that presents to the hospital as a direct admit via EMS from [facility] in [facility] for the above complaint. The patient was admitted to our hospital on 10/29/2020 for a scheduled Wes-en-Y gastric bypass and adhesiolysis with Dr. Yarbrough. Subsequently, she was readmi tted on 11/03/20 for abdominal wall cellulitis and a small bowel leak. She underwent subsequent repair with washout and had an ileostomy placed. She was discharged home with [facility] home health and a wound VAC. Since discharge, the patient reports that she has had decreased oral intake and decreased appetite. Over the last couple days she has had dizziness when standing up. She reports the room is spinning. She has fallen twice. She bumped her head on the carpet. She denies LOC or any focal motor deficits. She denies any neck pain changes in vision or speech. She denies any chest pain, heart palpitations or swelling to her lower extremities. She denies any shortness of breath cough, wheezing or hemoptysis. She denies any sick contacts. She denies any fever or chills. She has been compliant on her medications and there have been no major changes to her home medication regimen. She denies any abdominal pain, vomiting. She reports that her ileostomy output has been unchanged since discharge. She denies any blood in her stools. She denies any dysuria or hematuria. ED Course: [facility]: Presented hypotensive with a blood pressure of 95/53, normal heart rate, normal respirations, normal SPO2. Afebrile. Sodium 125, chloride 83, BUN 53, creatinine 4.6, glucose 111 WBCs 8.1, hemoglobin 10.9, hematocrit 35.6, platelets 335 LA 3.8 LFTs unremarkable Troponin negative Covid negative Medications administration: 1 L normal saline Zofran 8 mg After admission patient was treated with sodium bicarbonate orally and IV fluid was given, nephrology was consulted, With IV fluid her renal function gradually improved from 4.6 to-1.3 today, patient had abnormal electrolytes that was replaced and corrected, patient feels much better and she expressed her wish to go home today she does not need any snf home placement, she will resume her home health, necessary prevention major for acute kidney injury discussed with the patient, patient is encouraged about oral hydration, Patient will follow up with Dr. Yarbrough and Dr. Luong as directed, she will follow- up with her PCP. Resuscitation Status: 12/14/20 20:22 Resuscitation Status Routine Co-Sign Provider: Resuscitation Status: FULL: Full Resuscitation Discussed with: patient Additional comments: spouse, Mehran at [phone] Lab Results: 12/18/20 03:04 12/18/20 03:04 Abnormal Lab Results - Last 48 hrs 12/17/20 04:05: Chloride 112 H, Carbon Dioxide 19 L, BUN 22 H, Creatinine 1.47 H 12/17/20 04:05: RBC 3.30 L, Hgb 9.1 L, Hct 28.6 L, MCHC 31.8 L, Monocytes # 0.8 H 12/18/20 03:04: Chloride 114 H, Carbon Dioxide 19 L, Creatinine 1.31 H, Magnesium 1.4 L, Serum Total Protein 5.9 L, Albumin 2.7 L, Albumin/Globulin Ratio 0.8 L 12/18/20 03:04: RBC 3.25 L, Hgb 8.8 L, Hct 27.8 L, MCHC 31.8 L, Monocytes # 0.7 H Vitals: Vital Signs (12 hours) Temp Pulse Resp BP Pulse Ox 12/18/20 07:58 98.0 F 88 12 119/65 97 12/18/20 03:33 98.8 F 76 17 105/56 L 95 Weight Admit Weight 260 lb Weight 255 lb 14.4 oz Physical Exam: The patient was seen and examined on the day of discharge. General Appearance: NAD, awake alert Eye: PERRL, anicteric sclera ENT: normocephalic atraumatic, no oropharyngeal lesions Neck: supple, symmetric, no JVD, no thyromegaly Respiratory: no wheezes, no rales, no ronchi Cardiovascular: RRR, no murmur, no gallops, no rubs Gastrointestinal: soft, non-tender, non-distended, normal bowel sounds Gastrointestinal - other findings: Ileostomy in place Extremities: no cyanosis, no clubbing, no edema Skin: normal turgor, no lesions Neurological: no focal deficits Musculoskeletal: normal tone, normal strength PSYCH: normal affect, normal behavior Problem (1) BIBIANA (acute kidney injury) Code(s): N17.9 - ACUTE KIDNEY FAILURE, UNSPECIFIED Status: Acute (2) Dehydration Code(s): E86.0 - DEHYDRATION Status: Acute (3) Dizziness Code(s): R42 - DIZZINESS AND GIDDINESS Status: Acute (4) Falls Code(s): W19.XXXA - UNSPECIFIED FALL, INITIAL ENCOUNTER Status: Acute (5) Hyponatremia with decreased serum osmolality Code(s): E87.1 - HYPO-OSMOLALITY AND HYPONATREMIA Status: Acute (6) Lactic acidosis Code(s): E87.2 - ACIDOSIS Status: Acute (7) Anxiety and depression Code(s): F41.9 - ANXIETY DISORDER, UNSPECIFIED; F32.9 - MAJOR DEPRESSIVE DISORDER, SINGLE EPISODE, UNSPECIFIED Status: Chronic (8) Fibromyalgia Status: Chronic (9) GERD (gastroesophageal reflux disease) Code(s): K21.9 - GASTRO-ESOPHAGEAL REFLUX DISEASE WITHOUT ESOPHAGITIS Status: Chronic (10) Hypertension Code(s): I10 - ESSENTIAL (PRIMARY) HYPERTENSION Status: Chronic (11) Status post gastric bypass for obesity Code(s): Z98.84 - BARIATRIC SURGERY STATUS Status: Chronic Plan Prescriptions: Folic Acid 1 mg PO DAILY #30 tablet Thiamine 100 mg PO DAILY #30 tab Cyanocobalamin (Vitamin B-12) [Vitamin B-12] 1,000 mcg PO DAILY #30 tablet Home Medications: Medication Instructions Recorded Confirmed Type Amlodipine Besylate [amLODIPine 2.5 mg PO HS 10/23/20 12/14/20 History Besylate] Aspirin [Aspirin EC] 81 mg PO DAILY 10/23/20 12/14/20 History Cholecalciferol (Vitamin D3) 5,000 unit PO DAILY 10/23/20 12/14/20 History [Vitamin D3] Hydroxychloroquine Sulfate 200 mg PO BID 10/23/20 12/14/20 History Krill/Om-3/DHA/EPA/Phospho/Ast 2 cap PO HS 10/23/20 12/14/20 History [Krill Oil 500 mg Softgel] Metoprolol Succinate [Toprol XL] 12.5 mg PO HS 10/23/20 12/14/20 History Multivitamin With Minerals 1 tab PO DAILY 10/23/20 12/14/20 History [Multiple Vitamin] Pantoprazole Sodium 40 mg PO DAILY 10/23/20 12/14/20 History Pravastatin Sodium 40 mg PO HS 10/23/20 12/14/20 History Pregabalin 100 mg PO TID 10/23/20 12/14/20 History Tofacitinib Citrate [Xeljanz Xr] 11 mg PO DAILY 10/23/20 12/14/20 History Venlafaxine HCl [Venlafaxine HCl 300 mg PO DAILY 10/23/20 12/14/20 History ER] buPROPion HCl 75 mg PO DAILY 10/23/20 12/14/20 History busPIRone HCl [Buspirone HCl] 15 mg PO QID 10/23/20 12/14/20 History risperiDONE 2 mg PO HS 10/23/20 12/14/20 History tiZANidine HCl [Tizanidine HCl] 4 mg PO BID 10/23/20 12/14/20 History traZODone HCl [Trazodone HCl] 50 mg PO HS 10/23/20 12/14/20 History Hydrocodone-APAP 7.5-325/15 15 ml PO Q4H PRN #300 ml 10/30/20 12/14/20 Rx Acetaminophen [Tylenol Elixir] 650 mg PO Q4H PRN udcup 11/22/20 12/14/20 Rx Calcium Carbonate [Tums] 500 mg PO Q4H PRN tab 11/22/20 12/14/20 Rx Melatonin 18 mg PO HS tab 11/22/20 12/14/20 Rx Albuterol Sulfate HFA (OR) 2 puff FS BID 12/14/20 12/14/20 History [Proventil Hfa (or)] Albuterol Sulfate [Albuterol 2.5 mg NEB Q6H PRN 12/14/20 12/14/20 History Sulfate Neb] Lyons-3 Fatty Acids/Fish Oil 1 cap PO DAILY 12/14/20 12/14/20 History [Lyons 3 1,000 mg Softgel] metFORMIN [Glucophage] 500 mg PO BID-WM 12/14/20 12/14/20 History Cyanocobalamin (Vitamin B-12) 1,000 mcg PO DAILY #30 tablet 12/18/20 Rx [Vitamin B-12] Folic Acid 1 mg PO DAILY #30 tablet 12/18/20 Rx Thiamine 100 mg PO DAILY #30 tab 12/18/20 Rx Allergies: naproxen [From Aleve] Allergy (Severe, Verified 11/04/20 00:05) Anaphylaxis RASH Sulfa (Sulfonamide Antibiotics) Allergy (Severe, Verified 11/04/20 00:05) Rash Activity:: Activity as Tolerated Nourishment:: Heart Healthy Diet Therapies:: Home Health Equipment/Supplies:: Not Applicable IV Therapy:: Not Applicable Referrals: Suman Yarbrough MD [Active] - 2-3 Weeks Unknown,Unknown [Primary Care Provider] - Disposition: HOME HEALTH Quality CORE MEASURES:: N/A
--- NOTE | 2020-12-18 10:58 | PDOC.HOSPP ---
- Subjective Encounter Date: 12/18/20 Encounter Time: 07:40 Subjective: Patient seen and examined. No new complaints. No overnight events - Objective Vital Signs & Weight: Vital Signs (12 hours) Temp Pulse Resp BP Pulse Ox 12/18/20 07:58 98.0 F 88 12 119/65 97 12/18/20 03:33 98.8 F 76 17 105/56 L 95 Weight Admit Weight 260 lb Weight 255 lb 14.4 oz I&O: 12/17/20 12/18/20 12/19/20 06:59 06:59 06:59 Intake Total 500 3435 Output Total 1600 2800 Balance -1100 635 Result Diagrams: 12/18/20 03:04 12/18/20 03:04 Hospitalist ROS - Review of Systems ENT: denies: ear pain, ear discharge, nose pain, nose discharge, nose congestion, mouth pain, mouth swelling, throat pain, throat swelling, other Respiratory: denies: cough, dry, shortness of breath, hemoptysis, SOB with excertion, pleuritic pain, sputum, wheezing, other Cardiovascular: denies: chest pain, palpitations, orthopnea, paroxysmal noc. dyspnea, edema, light headedness, other Gastrointestinal: denies: nausea, vomiting, abdominal pain, diarrhea, constipation, melena, hematochezia, other Genitourinary: denies: dysuria, frequency, incontinence, hematuria, retention, other Musculoskeletal: denies: neck pain, shoulder pain, arm pain, back pain, hand pain, leg pain, foot pain, other - Medication Medications: Active Medications Generic Name Dose Route Start Last Admin Trade Name Freq PRN Reason Stop Dose Admin Hydrocodone Bitart/Acetaminophen 1 tab 12/15/20 07:59 12/16/20 15:30 Hydrocodone/Acetaminophen 5/325 Mg Tablet PO 1 tab Q4H PRN Administration Moderate Pain (4-6) Albuterol Sulfate 2 puff 12/15/20 06:30 12/18/20 08:11 Albuterol 200 Puff (6.7gm Inhaler) INH 2 puff BID-RT TANK Administration Aspirin 81 mg 12/15/20 09:00 12/18/20 10:28 Aspirin 81 Mg Enteric Coated Tablet PO 81 mg DAILY TANK Administration Atorvastatin Calcium 10 mg 12/15/20 21:00 02/15/21 22:03 Atorvastatin Calcium 10 Mg Tab PO 10 mg HS TANK Administration Bupropion HCl 75 mg 12/15/20 09:00 12/18/20 10:27 Bupropion 75 Mg Tab PO 75 mg DAILY TANK Administration Buspirone HCl 10 mg 12/15/20 09:00 12/18/20 10:29 Buspirone Hcl 10 Mg Tab PO 10 mg BID TANK Administration Cholecalciferol 5,000 units 12/15/20 09:00 12/18/20 10:29 Cholecalciferol 1,000 Units (25 Mcg) Tab PO 5,000 units DAILY TANK Administration Fish Oil 1,000 mg 12/15/20 09:00 12/18/20 10:27 Fish Oil 1,000 Mg Cap PO 1,000 mg DAILY TANK Administration Heparin Sodium (Porcine) 5,000 units 12/17/20 14:00 12/18/20 06:09 Heparin 5,000 Units/Ml Vial SC 5,000 units Q8HR TANK Administration Hydroxychloroquine Sulfate 200 mg 12/15/20 09:00 12/18/20 10:27 Hydroxychloroquine Sulfate 200 Mg Tab PO 200 mg BID TANK Administration Lactated Ringer's 1,000 mls @ 75 mls/hr 12/17/20 13:15 12/18/20 06:09 Lactated Ringer's IV 1,000 mls .[id number] TANK Administration Magnesium Sulfate 2 gm/ Device 50 mls @ 50 mls/hr 12/18/20 07:45 12/18/20 10:30 IVPB 12/18/20 11:00 50 mls NOW TANK Administration Iron/Minerals/Multivitamins 1 tab 12/15/20 09:00 12/18/20 10:28 Multivitamin W/ Minerals 1 Tab PO 1 tab DAILY TANK Administration Loperamide HCl 2 mg 12/17/20 21:00 12/18/20 10:29 Loperamide Hcl 2 Mg Cap PO 2 mg BID TANK Administration Melatonin 9 mg 12/15/20 08:03 12/15/20 20:42 Melatonin 3 Mg Tab PO 9 mg HS PRN Administration Insomnia Metoprolol Tartrate 12.5 mg 12/16/20 21:00 12/18/20 10:29 Metoprolol Tartrate 25 Mg Tab PO 12.5 mg BID TANK Administration Pantoprazole Sodium 40 mg 12/15/20 09:00 12/18/20 10:27 Pantoprazole 40 Mg Tab PO 40 mg DAILY TANK Administration Pregabalin 50 mg 12/15/20 09:00 12/18/20 10:28 Pregabalin 50 Mg Cap PO 50 mg TID TANK Administration Risperidone 2 mg 12/15/20 21:00 12/17/20 21:58 Risperidone 1 Mg Tab PO 2 mg HS TANK Administration Sodium Bicarbonate 325 mg 12/15/20 09:00 12/18/20 10:27 Sodium Bicarbonate Tab 325 Mg Tab PO 325 mg TID TANK Administration Tizanidine HCl 2 mg 12/15/20 09:00 12/18/20 10:28 Tizanidine Hcl 4 Mg Tab PO 2 mg BID TANK Administration Hospitalist Exam Vitals: Vital Signs (12 hours) Temp Pulse Resp BP Pulse Ox 12/18/20 07:58 98.0 F 88 12 119/65 97 12/18/20 03:33 98.8 F 76 17 105/56 L 95 Weight Admit Weight 260 lb Weight 255 lb 14.4 oz General Appearance: NAD, awake alert Eye: PERRL, anicteric sclera ENT: normocephalic atraumatic, no oropharyngeal lesions Neck: supple, symmetric, no JVD, no thyromegaly Heart: RRR, no murmur, no gallops, no rubs Respiratory: no wheezes, no rales, no ronchi Gastrointestinal: soft, non-tender, non-distended, normal bowel sounds Gastrointestinal - other findings: Ileostomy in place Extremities: no cyanosis, no clubbing, no edema Skin: normal turgor, no lesions Neurological: no focal deficits Musculoskeletal: normal tone, normal strength Psychiatric: normal affect, normal behavior Hosp A/P (1) BIBIANA (acute kidney injury) Code(s): N17.9 - ACUTE KIDNEY FAILURE, UNSPECIFIED Status: Acute (2) Dehydration Code(s): E86.0 - DEHYDRATION Status: Acute (3) Dizziness Code(s): R42 - DIZZINESS AND GIDDINESS Status: Acute (4) Falls Code(s): W19.XXXA - UNSPECIFIED FALL, INITIAL ENCOUNTER Status: Acute (5) Hyponatremia with decreased serum osmolality Code(s): E87.1 - HYPO-OSMOLALITY AND HYPONATREMIA Status: Acute (6) Lactic acidosis Code(s): E87.2 - ACIDOSIS Status: Acute (7) Anxiety and depression Code(s): F41.9 - ANXIETY DISORDER, UNSPECIFIED; F32.9 - MAJOR DEPRESSIVE DISORDER, SINGLE EPISODE, UNSPECIFIED Status: Chronic (8) Fibromyalgia Status: Chronic (9) GERD (gastroesophageal reflux disease) Code(s): K21.9 - GASTRO-ESOPHAGEAL REFLUX DISEASE WITHOUT ESOPHAGITIS Status: Chronic (10) Hypertension Code(s): I10 - ESSENTIAL (PRIMARY) HYPERTENSION Status: Chronic (11) Status post gastric bypass for obesity Code(s): Z98.84 - BARIATRIC SURGERY STATUS Status: Chronic - Plan old records reviewed/req Renal function significantly improved, patient is medically stable for discharge, if ride is not available then will consider canceling discharge, patient wants to go home today, she will follow up with general surgery, nephrology and her primary care physician. Patient is strongly advised to hold blood pressure medication if blood pressure is less than 130 systolic. Oral hydration discussed with the patient in detail to prevent acute kidney injury
--- NOTE | 2020-12-18 12:02 | PRG ---
DATE OF SERVICE: 12/18/2020 SUBJECTIVE: Ms. Yeung is a 55-year-old white female, who was seen by the Renal Service for an acute kidney injury and hyponatremia. Her acute kidney injury was a hemodynamically-mediated dysfunction. This improved with IV hydration. The patient voices no new complaints today. She denies any chest pain or shortness of breath. OBJECTIVE: VITAL SIGNS: Blood pressure is 119/65, heart rate 88, respiratory rate 12, temperature 98, O2 saturations 97%. GENERAL: The patient is awake, alert, comfortable, not in overt distress. SKIN: Adequate turgor. HEENT: She has pinkish, slightly pale conjunctivae. Anicteric sclerae. No neck mass. No carotid bruits. No JVD. CHEST: No deformities. LUNGS: Clear breath sounds. No wheezing. No crackles. HEART: Normal sinus rhythm. No murmur. No gallops. No rubs. ABDOMEN: Globular, soft, nontender. No masses. EXTREMITIES: No edema. No deformities. MEDICATIONS: Medications of December 18, 2020, reviewed. LABORATORY DATA: Laboratories of December 18, 2020; white count 9.8, hemoglobin 8.8. Sodium 140, potassium 4.2, chloride 104, carbon dioxide 19, BUN 17, creatinine 1.31, AST 19, ALT 17, albumin 2.7. ASSESSMENT/PLAN: Acute kidney injury-secondary to hemodynamically mediated dysfunction, much improved renal function with IV hydration. No indication for any dialytic intervention. Agree with current management. I encouraged the patient to increase her p.o. intake when she gets discharged. Job ID: [id number]
[2020-12-18 13:50] VITALS: BP 100/54; TEMP 98.4
[2020-12-18 14:26] VITALS: BMI 40.1
--- NOTE | 2020-12-19 15:23 | EKG ---
Test Reason : STAT Blood Pressure : / mmHG Vent. Rate : 071 BPM Atrial Rate : 071 BPM P-R Int : 160 ms QRS Dur : 088 ms QT Int : 374 ms P-R-T Axes : 036 -48 048 degrees QTc Int : 406 ms Normal sinus rhythm Left axis deviation Low voltage QRS Septal infarct , age undetermined Abnormal ECG No previous ECGs available Confirmed by BAM BERMUDEZ (2) on 12/19/2020 3:22:52 PM Referred By: URI Confirmed By:BAM BERMUDEZ
== END 2020-12-18 15:30 | disposition home health service (06) | DRG 683 ==
LOC: 2NO 19:14 → INTOOBSV 19:14 → OBSVTOIN 12-15 07:36
PROVIDERS: ADMIT Internal Medicine; ATTEND Internal Medicine
DX: N17.9 Acute kidney failure, unspecified (principal); E87.1 Hypo-osmolality and hyponatremia; E87.2 Acidosis; Z68.41 Body mass index [BMI] 40.0-44.9, adult; Z20.822 Contact with and (suspected) exposure to COVID-19; M79.7 Fibromyalgia; E66.9 Obesity, unspecified; K21.9 Gastro-esophageal reflux disease without esophagitis; F41.9 Anxiety disorder, unspecified; I10 Essential (primary) hypertension; F32.9 Major depressive disorder, single episode, unspecified; E86.0 Dehydration; Z98.84 Bariatric surgery status; Z93.2 Ileostomy status; Z90.49 Acquired absence of other specified parts of digestive tract; Z90.710 Acquired absence of both cervix and uterus; Z79.51 Long term (current) use of inhaled steroids; Z79.82 Long term (current) use of aspirin; Z79.899 Other long term (current) drug therapy
CPT/HCPCS: 36415; 71045; 76770; 80048; 80053; 81001; 82550; 82570; 83605; 83690; 83735; 84100; 84300; 84443; 84484; 85025; 93005; 93010; G0378; J1644; J3475

== ENCOUNTER → 2020-12-24 | Day surgery (SDC) | payer MEDICARE ==
--- NOTE | 2020-12-24 16:27 | SPC ---
Ultrasound and Fluoroscopic guided left upper extremity PICC placement HISTORY: Dehydration FINDINGS: Informed consent obtained prior to the procedure. An appropriate access site was determined with ultrasound guidance. The area was then meticulously pr epped and draped in usual sterile fashion. Skin overlying the left brachial vein anesthetized with 1% buffered lidocaine. Utilizing direct sonog raphic guidance, vascular access is obtained via the left brachial vein, and an 0.018in guidewire was advanced to the cavoatrial junction. Intravascular length is calculated at 48 cm, and the PICC is cut accordingly. Needle is removed and replaced with a peel-away sheath. The PICC was advanced over the wire. Wire and peel-away sheath were removed. The tip of the catheter overlies the cavoatrial junction. The catheter was accessed and aspirated/flushed easily. Exposure data: 0.1 minutes of fluoroscopic time 338 mGy centimeter squared FINDINGS: Technically successful placement of a 48 centimeter single lumen 5 Khmer left upper extremity PICC l ine. IMPRESSION: Successful ultrasound guided placement of a left upper extremity PICC.
== END ==
LOC: SPEC 15:00
PROVIDERS: ATTEND Specialist
PROC: 02HV33Z Insertion of Infusion Device into Superior Vena Cava, Percutaneous Approach (ICD-10-PCS; principal; 2020-12-24)
PROC: B518ZZA Fluoroscopy of Superior Vena Cava, Guidance (ICD-10-PCS; 2020-12-24)
DX: E86.0 Dehydration (principal); Z88.2 Allergy status to sulfonamides; Z88.6 Allergy status to analgesic agent; Z98.84 Bariatric surgery status
CPT/HCPCS: 36569

== ENCOUNTER 2021-02-08 12:00 | Inpatient (IN) | payer MEDICARE ==
[2021-02-12 10:06] VITALS: BMI 34.7
[2021-02-13] MEDS ORDERED: Acetaminophen 500 MG TAB ONE (06:05)
[2021-02-13] MEDS ORDERED: Ketorolac Tromethamine 30 MG/ML VIAL ONE (06:05)
[2021-02-13] MEDS ORDERED: Meropenem 2 GM in Sodium Chloride 0.9% 100 ML IVPB SCH (06:30)
[2021-02-13] MEDS ORDERED: Fentanyl 100 MCG/2 ML VIAL ONE ×5 (06:40→12:31)
[2021-02-13] MEDS ORDERED: Lidocaine 1% (PF) 30 ML VIAL ONE ×2 (06:40→07:16)
[2021-02-13] MEDS ORDERED: Midazolam HCl 2 mg/2 ml Vial ONE (06:40)
[2021-02-13] MEDS ORDERED: Bupivacaine 0.25% HCL 30 ML VIAL ONE (06:50)
[2021-02-13] MEDS ORDERED: Bupivacaine PF 0.5% 30 ML VIAL ONE (06:53)
[2021-02-13] MEDS ORDERED: Ondansetron PF 4 MG/2 ML Vial ONE (07:43)
[2021-02-13] MEDS ORDERED: Lidocaine 1% PF 5 ML VIAL ONE (07:43)
[2021-02-13] MEDS ORDERED: Bupivacaine HCl 0.5%/Epinephrine 1:200,000/PF 30 ml Vial ONE (07:43)
[2021-02-13] MEDS ORDERED: ePHEDrine Sulfate 50 MG/10 ML VIAL ONE (07:43)
[2021-02-13] MEDS ORDERED: Glycopyrrolate 0.2 MG/ML 5 ML SYRINGE ONE (07:43)
[2021-02-13] MEDS ORDERED: Rocuronium Bromide 10 MG/ML (10ML VIAL) ONE (07:43)
[2021-02-13] MEDS ORDERED: PROPOFOL 200 MG/20 ML VIAL ONE (07:43)
[2021-02-13] MEDS ORDERED: PHENYLEPHRINE-NS 100 MCG/ML 10 ML SYRINGE ONE (07:43)
[2021-02-13] MEDS ORDERED: Albumin 5% 500 ML ONE (07:52)
[2021-02-13] MEDS ORDERED: HYDROmorphone 0.5 MG/0.5 ML SYRINGE ONE ×4 (11:51→12:34)
[2021-02-13] MEDS ORDERED: diphenhydrAMINE 50 MG/ML VIAL IVP PRN ×2 (12:35→12:40)
[2021-02-13] MEDS ORDERED: Naloxone HCl 0.4 mg/ml Vial IV PRN (12:35)
[2021-02-13] MEDS ORDERED: diphenhydrAMINE 25 MG CAP PO PRN (12:35)
[2021-02-13] MEDS ORDERED: Promethazine HCl 25 MG/ML VIAL IM PRN ×2 (12:35→12:40)
[2021-02-13] MEDS ORDERED: diphenhydrAMINE 50 MG/ML VIAL IM PRN (12:35)
[2021-02-13] MEDS ORDERED: Zolpidem Tartrate 5 MG TAB PO PRN (12:35)
[2021-02-13] MEDS ORDERED: fentaNYL Citrate/PF 2,000 MCG in Sodium Chloride 0.9% 60 ML IV PRN (12:35)
[2021-02-13] MEDS ORDERED: Ondansetron PF 4 MG/2 ML Vial IVP PRN ×2 (12:35→12:40)
[2021-02-13] MEDS ORDERED: Dextrose 50% Abboject 50 ML SYRINGE SLOW IVP PRN (12:40)
[2021-02-13] MEDS ORDERED: hydrALAZINE 20 MG/ML VIAL SLOW IVP PRN (12:40)
[2021-02-13] MEDS ORDERED: Dextrose 5% in Water 1,000 ML IV PRN (12:40)
[2021-02-13] MEDS ORDERED: Communication Order-Pharmacy FS SCH (12:45)
[2021-02-13] MEDS: Lactated Ringer's 1,000 ML IV SCH ×2 (15:14→21:18)
[2021-02-13 16:05] LABS: #Lymphocytes 1.1 thou/uL (1.20-3.40); #Monocytes 0.4 thou/uL (0.11-0.59); #Neutrophils 11.6 thou/uL (1.40-6.50); %Basophils 0.3 % (0.0-1.0); %Eosinophils 0.1 % (0.0-10.0); %Lymphocytes 8.2 % (21.0-51.0); %Monocytes 3.2 % (0.0-10.0); %Neutrophils 88.2 % (42.0-75.0); Hemoglobin 8.7 g/dL (12.0-16.0); Mean Corpuscular HGB CONC 31.8 g/dL (32.0-36.0); Mean Corpuscular Hemoglobin 27.4 pg (27.0-31.0); Mean Corpuscular Volume 86.2 fL (78.0-98.0); Mean Platelet Volume 7.2 fL (7.4-10.4); Platelet Count 431 thou/uL (130-400); RBC Distribution Width 15.5 % (11.5-14.5); Red Blood Cell (RBC) Count 3.17 mill/uL (4.20-5.40); White Blood Cell (WBC) Count 13.2 thou/uL (4.8-10.8)
[2021-02-13] MEDS: Ketorolac Tromethamine 30 MG/ML VIAL IVP SCH (17:20)
[2021-02-13] MEDS: Enoxaparin Sodium 40 MG/0.4 ML SYRINGE SC SCH (20:05)
[2021-02-14] MEDS: Ketorolac Tromethamine 30 MG/ML VIAL IVP SCH ×5 (01:00→23:22)
[2021-02-14] MEDS: Lactated Ringer's 1,000 ML IV SCH ×4 (02:13→23:26)
[2021-02-14] MEDS ORDERED: Sodium Chloride 0.9% 1,000 ML IV SCH ×3 (03:30→18:00)
[2021-02-14] MEDS: Albumin 25% 25 GM/100 ML BOT IVPB SCH ×4 (05:08→21:37)
[2021-02-14 06:19] LABS: #Basophils 0.1 thou/uL (0.0-0.2); #Monocytes 0.7 thou/uL (0.11-0.59); #Neutrophils 13.3 thou/uL (1.40-6.50); %Basophils 0.4 % (0.0-1.0); %Eosinophils 0.1 % (0.0-10.0); %Lymphocytes 6.8 % (21.0-51.0); %Monocytes 4.6 % (0.0-10.0); %Neutrophils 88.1 % (42.0-75.0); Hemoglobin 8.6 g/dL (12.0-16.0); Mean Corpuscular HGB CONC 31.8 g/dL (32.0-36.0); Mean Corpuscular Hemoglobin 27.8 pg (27.0-31.0); Mean Corpuscular Volume 87.5 fL (78.0-98.0); Mean Platelet Volume 7.7 fL (7.4-10.4); Platelet Count 406 thou/uL (130-400); RBC Distribution Width 15.7 % (11.5-14.5); White Blood Cell (WBC) Count 15.1 thou/uL (4.8-10.8)
[2021-02-14] MEDS: Pantoprazole 40 MG VIAL IVP SCH (08:32)
[2021-02-14 10:54] LABS: Anion Gap 12 mmol/L (10-20); BUN (Urea Nitrogen) 9 mg/dL (9.8-20.1); Calc. Creatinine Clearance 99 mL/min (70-130); Calcium 7.8 mg/dL (7.8-10.44); Carbon Dioxide 18 mmol/L (22-29); Chloride 110 mmol/L (98-107); Glucose 95 mg/dL (70-105); Potassium 4.5 mmol/L (3.5-5.1); Sodium 135 mmol/L (136-145)
[2021-02-14] MEDS ORDERED: Albuterol Sulfate 2.5 mg/3 ml Neb NEB PRN (17:24)
[2021-02-14] MEDS ORDERED: Cosyntropin 250 MCG VIAL SLOW IVP SCH (18:00)
[2021-02-14] MEDS ORDERED: Multivitamins, Adult 10 ML, Folic Acid 1 MG in Dextrose 5 %-0.45 % NaCl 1,000 ML IV SCH (18:30)
[2021-02-14] MEDS: Albuterol Sulfate 2.5 mg/3 ml Neb NEB SCH (18:30)
[2021-02-14] MEDS: Enoxaparin Sodium 40 MG/0.4 ML SYRINGE SC SCH (20:04)
[2021-02-14] MEDS: traZODone HCl 50 MG TAB PO SCH (20:05)
[2021-02-14] MEDS: busPIRone HCl 10 MG TAB PO SCH (20:05)
[2021-02-14] MEDS: tiZANidine HCl 4 MG TAB PO SCH (21:24)
[2021-02-14] MEDS: Melatonin 3 MG TAB PO SCH (21:24)
[2021-02-15] MEDS: Ketorolac Tromethamine 30 MG/ML VIAL IVP SCH ×3 (05:21→17:19)
[2021-02-15] MEDS: Lactated Ringer's 1,000 ML IV SCH ×4 (05:22→21:06)
[2021-02-15] MEDS: Albumin 25% 25 GM/100 ML BOT IVPB SCH ×2 (05:22→18:31)
[2021-02-15 05:46] LABS: #Eosinphils 0.1 thou/uL (0.0-0.7); #Lymphocytes 0.7 thou/uL (1.20-3.40); #Monocytes 0.8 thou/uL (0.11-0.59); #Neutrophils 12.6 thou/uL (1.40-6.50); %Basophils 0.1 % (0.0-1.0); %Eosinophils 0.5 % (0.0-10.0); %Lymphocytes 4.7 % (21.0-51.0); %Monocytes 5.6 % (0.0-10.0); %Neutrophils 89.1 % (42.0-75.0); Hemoglobin 7.4 g/dL (12.0-16.0); Mean Corpuscular HGB CONC 31.1 g/dL (32.0-36.0); Mean Corpuscular Hemoglobin 27.5 pg (27.0-31.0); Mean Corpuscular Volume 88.5 fL (78.0-98.0); Mean Platelet Volume 7.8 fL (7.4-10.4); Platelet Count 362 thou/uL (130-400); RBC Distribution Width 15.9 % (11.5-14.5); Red Blood Cell (RBC) Count 2.69 mill/uL (4.20-5.40); White Blood Cell (WBC) Count 14.1 thou/uL (4.8-10.8)
[2021-02-15 06:04] LABS: Anion Gap 12 mmol/L (10-20); BUN (Urea Nitrogen) 13 mg/dL (9.8-20.1); Calc. Creatinine Clearance 75 mL/min (70-130); Calcium 7.8 mg/dL (7.8-10.44); Carbon Dioxide 16 mmol/L (22-29); Chloride 109 mmol/L (98-107); Glucose 133 mg/dL (70-105); Potassium 4.4 mmol/L (3.5-5.1); Sodium 133 mmol/L (136-145)
[2021-02-15] MEDS: Albuterol Sulfate 2.5 mg/3 ml Neb NEB SCH ×2 (06:59→19:34)
[2021-02-15] MEDS: busPIRone HCl 10 MG TAB PO SCH ×4 (09:00→21:04)
[2021-02-15] MEDS: Pantoprazole 40 MG VIAL IVP SCH (09:00)
[2021-02-15] MEDS: buPROPion 75 MG TAB PO SCH (09:00)
[2021-02-15] MEDS: tiZANidine HCl 4 MG TAB PO SCH ×2 (09:01→21:06)
[2021-02-15] MEDS ORDERED: Acetaminophen 500 MG TAB PO PRN (09:34)
[2021-02-15] MEDS ORDERED: Sodium Chloride 0.9% 1,000 ML IV SCH (15:15)
[2021-02-15] MEDS: Piperacillin/Tazobactam 4.5 GM in Sodium Chloride 0.9% 100 ML IVPB SCH (17:19)
[2021-02-15] MEDS ORDERED: Ketorolac Tromethamine 30 MG/ML VIAL IVP PRN (17:19)
[2021-02-15] MEDS ORDERED: HYDROcodone/Acetaminophen 7.5/325 mg Tablet PO PRN (17:19)
[2021-02-15] MEDS: Enoxaparin Sodium 40 MG/0.4 ML SYRINGE SC SCH (21:03)
[2021-02-15] MEDS: Pregabalin 50 MG CAP PO SCH ×2 (21:05→22:24)
[2021-02-15] MEDS: Melatonin 3 MG TAB PO SCH (21:06)
[2021-02-15] MEDS: traZODone HCl 50 MG TAB PO SCH (21:06)
[2021-02-16] MEDS: Piperacillin/Tazobactam 4.5 GM in Sodium Chloride 0.9% 100 ML IVPB SCH ×3 (00:21→17:01)
[2021-02-16] MEDS: Albumin 25% 25 GM/100 ML BOT IVPB SCH ×4 (00:22→18:37)
[2021-02-16 05:33] LABS: #Eosinphils 0.1 thou/uL (0.0-0.7); #Monocytes 0.9 thou/uL (0.11-0.59); #Neutrophils 8.4 thou/uL (1.40-6.50); %Basophils 0.2 % (0.0-1.0); %Eosinophils 1.1 % (0.0-10.0); %Lymphocytes 9.7 % (21.0-51.0); %Monocytes 8.8 % (0.0-10.0); %Neutrophils 80.3 % (42.0-75.0); Hemoglobin 7.2 g/dL (12.0-16.0); Mean Corpuscular HGB CONC 30.3 g/dL (32.0-36.0); Mean Corpuscular Hemoglobin 26.7 pg (27.0-31.0); Mean Platelet Volume 8.2 fL (7.4-10.4); Platelet Count 316 thou/uL (130-400); RBC Distribution Width 15.4 % (11.5-14.5); Red Blood Cell (RBC) Count 2.68 mill/uL (4.20-5.40); White Blood Cell (WBC) Count 10.4 thou/uL (4.8-10.8)
[2021-02-16 05:52] LABS: Anion Gap 13 mmol/L (10-20); BUN (Urea Nitrogen) 14 mg/dL (9.8-20.1); Calc. Creatinine Clearance 95 mL/min (70-130); Carbon Dioxide 15 mmol/L (22-29); Chloride 114 mmol/L (98-107); Potassium 3.9 mmol/L (3.5-5.1); Sodium 138 mmol/L (136-145)
[2021-02-16 05:53] LABS: Calcium 7.6 mg/dL (7.8-10.44); Glucose 97 mg/dL (70-105); Magnesium 1.5 mg/dL (1.6-2.6)
[2021-02-16] MEDS: Albuterol Sulfate 2.5 mg/3 ml Neb NEB SCH ×2 (07:14→20:19)
[2021-02-16] MEDS: Pregabalin 50 MG CAP PO SCH ×3 (08:40→21:30)
[2021-02-16] MEDS: Multivit, Therapeutic 1 TAB PO SCH (08:41)
[2021-02-16] MEDS: busPIRone HCl 10 MG TAB PO SCH ×4 (08:41→21:31)
[2021-02-16] MEDS: buPROPion 75 MG TAB PO SCH (08:41)
[2021-02-16] MEDS ORDERED: HYDROcodone/Acetaminophen 7.5/325 mg Tablet PO PRN ×2 (09:00)
[2021-02-16] MEDS: Pantoprazole 40 MG VIAL IVP SCH (10:04)
[2021-02-16] MEDS: tiZANidine HCl 4 MG TAB PO SCH ×2 (10:04→21:31)
[2021-02-16] MEDS: Lactated Ringer's 1,000 ML IV SCH (10:28)
[2021-02-16] MEDS: HYDROcodone/Acetaminophen 7.5/325 mg Tablet PO PRN ×2 (12:34→22:20)
[2021-02-16] MEDS: Enoxaparin Sodium 40 MG/0.4 ML SYRINGE SC SCH (21:30)
[2021-02-16] MEDS: Melatonin 3 MG TAB PO SCH (21:31)
[2021-02-16] MEDS: traZODone HCl 50 MG TAB PO SCH (21:32)
[2021-02-17] MEDS: Piperacillin/Tazobactam 4.5 GM in Sodium Chloride 0.9% 100 ML IVPB SCH ×2 (00:38→08:32)
[2021-02-17] MEDS: HYDROcodone/Acetaminophen 7.5/325 mg Tablet PO PRN ×2 (06:30→20:34)
[2021-02-17] MEDS: Albuterol Sulfate 2.5 mg/3 ml Neb NEB SCH ×2 (07:33→19:04)
[2021-02-17] MEDS: busPIRone HCl 10 MG TAB PO SCH ×4 (10:05→20:35)
[2021-02-17] MEDS: Multivit, Therapeutic 1 TAB PO SCH (10:05)
[2021-02-17] MEDS: tiZANidine HCl 4 MG TAB PO SCH ×2 (10:05→20:36)
[2021-02-17] MEDS: Pregabalin 50 MG CAP PO SCH ×3 (10:05→20:35)
[2021-02-17] MEDS: buPROPion 75 MG TAB PO SCH (10:05)
[2021-02-17] MEDS: Pantoprazole 40 MG VIAL IVP SCH (10:06)
[2021-02-17] MEDS: traZODone HCl 50 MG TAB PO SCH (20:36)
[2021-02-17] MEDS: Enoxaparin Sodium 40 MG/0.4 ML SYRINGE SC SCH (20:41)
[2021-02-17] MEDS: Melatonin 3 MG TAB PO SCH (20:41)
[2021-02-18] MEDS: Albuterol Sulfate 2.5 mg/3 ml Neb NEB SCH ×2 (07:36→19:00)
[2021-02-18] MEDS: Multivit, Therapeutic 1 TAB PO SCH (08:20)
[2021-02-18] MEDS: busPIRone HCl 10 MG TAB PO SCH ×4 (08:20→21:31)
[2021-02-18] MEDS: tiZANidine HCl 4 MG TAB PO SCH ×2 (08:20→21:27)
[2021-02-18] MEDS: Pregabalin 50 MG CAP PO SCH ×3 (08:20→21:28)
[2021-02-18] MEDS: buPROPion 75 MG TAB PO SCH (08:20)
[2021-02-18] MEDS: Pantoprazole 40 MG VIAL IVP SCH (08:21)
[2021-02-18] MEDS: HYDROcodone/Acetaminophen 7.5/325 mg Tablet PO PRN ×2 (08:38→13:20)
[2021-02-18] MEDS ORDERED: Magnesium Sulfate 3 GM in Sodium Chloride 0.9% 100 ML IVPB SCH (11:15)
[2021-02-18] MEDS ORDERED: Cyanocobalamin 1000 MCG/ML VIAL IM SCH (11:15)
[2021-02-18] MEDS: traZODone HCl 50 MG TAB PO SCH (21:27)
[2021-02-18] MEDS: Enoxaparin Sodium 40 MG/0.4 ML SYRINGE SC SCH (21:28)
[2021-02-18] MEDS: Melatonin 3 MG TAB PO SCH (21:28)
[2021-02-19 06:02] LABS: #Basophils 0.1 thou/uL (0.0-0.2); #Eosinphils 0.2 thou/uL (0.0-0.7); #Lymphocytes 1.7 thou/uL (1.20-3.40); #Monocytes 0.8 thou/uL (0.11-0.59); #Neutrophils 4.3 thou/uL (1.40-6.50); %Basophils 0.8 % (0.0-1.0); %Eosinophils 2.7 % (0.0-10.0); %Lymphocytes 24.4 % (21.0-51.0); %Monocytes 11.1 % (0.0-10.0); %Neutrophils 61.1 % (42.0-75.0); Hemoglobin 8.1 g/dL (12.0-16.0); Mean Corpuscular Hemoglobin 27.1 pg (27.0-31.0); Mean Corpuscular Volume 87.4 fL (78.0-98.0); Mean Platelet Volume 8.1 fL (7.4-10.4); Platelet Count 422 thou/uL (130-400); RBC Distribution Width 15.8 % (11.5-14.5); Red Blood Cell (RBC) Count 2.97 mill/uL (4.20-5.40)
[2021-02-19 06:26] LABS: Anion Gap 12 mmol/L (10-20); BUN (Urea Nitrogen) 11 mg/dL (9.8-20.1); Calc. Creatinine Clearance 129 mL/min (70-130); Calcium 8.1 mg/dL (7.8-10.44); Carbon Dioxide 21 mmol/L (22-29); Chloride 111 mmol/L (98-107); Glucose 84 mg/dL (70-105); Magnesium 1.9 mg/dL (1.6-2.6); Potassium 3.6 mmol/L (3.5-5.1); Sodium 140 mmol/L (136-145)
[2021-02-19] MEDS: Albuterol Sulfate 2.5 mg/3 ml Neb NEB SCH ×2 (07:21→21:52)
[2021-02-19] MEDS: tiZANidine HCl 4 MG TAB PO SCH ×2 (09:01→20:37)
[2021-02-19] MEDS: busPIRone HCl 10 MG TAB PO SCH ×4 (09:01→20:36)
[2021-02-19] MEDS: Multivit, Therapeutic 1 TAB PO SCH (09:02)
[2021-02-19] MEDS: Pregabalin 50 MG CAP PO SCH ×3 (09:02→20:37)
[2021-02-19] MEDS: buPROPion 75 MG TAB PO SCH (09:02)
[2021-02-19] MEDS: HYDROcodone/Acetaminophen 7.5/325 mg Tablet PO PRN ×3 (09:03→18:07)
[2021-02-19] MEDS: Pantoprazole 40 MG VIAL IVP SCH (09:03)
[2021-02-19] MEDS: Enoxaparin Sodium 40 MG/0.4 ML SYRINGE SC SCH (20:36)
[2021-02-19] MEDS: Melatonin 3 MG TAB PO SCH (20:37)
[2021-02-19] MEDS: traZODone HCl 50 MG TAB PO SCH (20:37)
[2021-02-20] MEDS: Albuterol Sulfate 2.5 mg/3 ml Neb NEB SCH ×2 (07:23→20:06)
[2021-02-20] MEDS: buPROPion 75 MG TAB PO SCH (08:20)
[2021-02-20] MEDS: busPIRone HCl 10 MG TAB PO SCH ×4 (08:20→19:59)
[2021-02-20] MEDS: Multivit, Therapeutic 1 TAB PO SCH (08:21)
[2021-02-20] MEDS: Pregabalin 50 MG CAP PO SCH ×3 (08:21→19:58)
[2021-02-20] MEDS: HYDROcodone/Acetaminophen 7.5/325 mg Tablet PO PRN ×2 (08:22→18:54)
[2021-02-20] MEDS: tiZANidine HCl 4 MG TAB PO SCH ×2 (08:22→18:55)
[2021-02-20] MEDS: Melatonin 3 MG TAB PO SCH (19:58)
[2021-02-20] MEDS: traZODone HCl 50 MG TAB PO SCH (19:59)
[2021-02-20] MEDS: Enoxaparin Sodium 40 MG/0.4 ML SYRINGE SC SCH (19:59)
[2021-02-21] MEDS: Albuterol Sulfate 2.5 mg/3 ml Neb NEB SCH ×2 (06:45→20:00)
[2021-02-21] MEDS: tiZANidine HCl 4 MG TAB PO SCH ×2 (09:13→20:46)
[2021-02-21] MEDS: Multivit, Therapeutic 1 TAB PO SCH (09:14)
[2021-02-21] MEDS: buPROPion 75 MG TAB PO SCH (09:14)
[2021-02-21] MEDS: Citrucel 500 MG TAB PO SCH (09:14)
[2021-02-21] MEDS: busPIRone HCl 10 MG TAB PO SCH ×4 (09:14→20:45)
[2021-02-21] MEDS: Pregabalin 50 MG CAP PO SCH ×3 (09:15→20:42)
[2021-02-21] MEDS: HYDROcodone/Acetaminophen 7.5/325 mg Tablet PO PRN ×2 (09:16→15:13)
[2021-02-21] MEDS: Vancomycin HCl 25 MG/ML Oral PO SCH ×2 (12:24→18:16)
[2021-02-21] MEDS: Melatonin 3 MG TAB PO SCH (20:44)
[2021-02-21] MEDS: traZODone HCl 50 MG TAB PO SCH (20:45)
[2021-02-21] MEDS: Enoxaparin Sodium 40 MG/0.4 ML SYRINGE SC SCH (20:46)
[2021-02-22] MEDS: Vancomycin HCl 25 MG/ML Oral PO SCH ×5 (00:03→23:55)
[2021-02-22] MEDS: Albuterol Sulfate 2.5 mg/3 ml Neb NEB SCH ×2 (07:08→18:44)
[2021-02-22] MEDS: tiZANidine HCl 4 MG TAB PO SCH ×2 (08:52→20:43)
[2021-02-22] MEDS: Citrucel 500 MG TAB PO SCH (08:52)
[2021-02-22] MEDS: Multivit, Therapeutic 1 TAB PO SCH ×3 (08:53→15:41)
[2021-02-22] MEDS: buPROPion 75 MG TAB PO SCH (08:53)
[2021-02-22] MEDS: busPIRone HCl 10 MG TAB PO SCH ×4 (08:53→20:43)
[2021-02-22] MEDS: Pregabalin 50 MG CAP PO SCH ×3 (08:54→20:42)
[2021-02-22] MEDS: HYDROcodone/Acetaminophen 7.5/325 mg Tablet PO PRN (11:19)
[2021-02-22] MEDS: Melatonin 3 MG TAB PO SCH (20:43)
[2021-02-22] MEDS: Enoxaparin Sodium 40 MG/0.4 ML SYRINGE SC SCH (20:43)
[2021-02-22] MEDS: traZODone HCl 50 MG TAB PO SCH (20:44)
[2021-02-23] MEDS: Vancomycin HCl 25 MG/ML Oral PO SCH ×4 (05:54→23:37)
[2021-02-23] MEDS: Albuterol Sulfate 2.5 mg/3 ml Neb NEB SCH ×2 (07:55→18:18)
[2021-02-23] MEDS: Pregabalin 50 MG CAP PO SCH ×3 (08:20→20:11)
[2021-02-23] MEDS: Citrucel 500 MG TAB PO SCH (08:20)
[2021-02-23] MEDS: tiZANidine HCl 4 MG TAB PO SCH ×2 (08:20→20:11)
[2021-02-23] MEDS: busPIRone HCl 10 MG TAB PO SCH ×4 (08:21→20:11)
[2021-02-23] MEDS: Multivit, Therapeutic 1 TAB PO SCH (08:21)
[2021-02-23] MEDS: buPROPion 75 MG TAB PO SCH (08:22)
[2021-02-23] MEDS: Melatonin 3 MG TAB PO SCH (20:11)
[2021-02-23] MEDS: Enoxaparin Sodium 40 MG/0.4 ML SYRINGE SC SCH (20:11)
[2021-02-23] MEDS: traZODone HCl 50 MG TAB PO SCH (20:11)
[2021-02-24] MEDS: Vancomycin HCl 25 MG/ML Oral PO SCH ×4 (05:41→23:59)
[2021-02-24] MEDS: busPIRone HCl 10 MG TAB PO SCH ×4 (08:43→20:13)
[2021-02-24] MEDS: tiZANidine HCl 4 MG TAB PO SCH ×2 (08:44→20:13)
[2021-02-24] MEDS: Multivit, Therapeutic 1 TAB PO SCH (08:45)
[2021-02-24] MEDS: buPROPion 75 MG TAB PO SCH (08:45)
[2021-02-24] MEDS: Pregabalin 50 MG CAP PO SCH ×3 (08:45→20:15)
[2021-02-24] MEDS: Citrucel 500 MG TAB PO SCH (08:45)
[2021-02-24] MEDS: Albuterol Sulfate 2.5 mg/3 ml Neb NEB SCH ×2 (08:47→18:43)
[2021-02-24] MEDS: Melatonin 3 MG TAB PO SCH (20:13)
[2021-02-24] MEDS: traZODone HCl 50 MG TAB PO SCH (20:13)
[2021-02-24] MEDS: Enoxaparin Sodium 40 MG/0.4 ML SYRINGE SC SCH (20:15)
[2021-02-25] MEDS: Vancomycin HCl 25 MG/ML Oral PO SCH ×2 (06:16→12:12)
[2021-02-25] MEDS: Albuterol Sulfate 2.5 mg/3 ml Neb NEB SCH (08:09)
[2021-02-25] MEDS: buPROPion 75 MG TAB PO SCH (09:07)
[2021-02-25] MEDS: Pregabalin 50 MG CAP PO SCH (09:07)
[2021-02-25] MEDS: tiZANidine HCl 4 MG TAB PO SCH (09:07)
[2021-02-25] MEDS: Multivit, Therapeutic 1 TAB PO SCH (09:07)
[2021-02-25] MEDS: Citrucel 500 MG TAB PO SCH (09:08)
[2021-02-25] MEDS: busPIRone HCl 10 MG TAB PO SCH ×2 (09:08→12:11)
[2021-02-25 11:39] VITALS: BP 123/73; TEMP 98.1
== END 2021-02-25 14:10 | DRG 329 ==
LOC: SURG A 02-13 05:28 → EDSTATUS 02-13 12:00 → SURG A 02-13 14:24
PROVIDERS: ADMIT Specialist; ATTEND Specialist
PROC: 0DBB0ZZ Excision of Ileum, Open Approach (ICD-10-PCS; principal; 2021-02-13)
PROC: 0DN80ZZ Release Small Intestine, Open Approach (ICD-10-PCS; 2021-02-13)
DX: Z43.2 Encounter for attention to ileostomy (principal); A41.9 Sepsis, unspecified organism; N17.9 Acute kidney failure, unspecified; A04.72 Enterocolitis due to Clostridium difficile, not specified as recurrent; Z20.822 Contact with and (suspected) exposure to COVID-19; E66.01 Morbid (severe) obesity due to excess calories; M19.90 Unspecified osteoarthritis, unspecified site; F32.9 Major depressive disorder, single episode, unspecified; G47.33 Obstructive sleep apnea (adult) (pediatric); K21.9 Gastro-esophageal reflux disease without esophagitis; G89.29 Other chronic pain; E78.5 Hyperlipidemia, unspecified; F41.9 Anxiety disorder, unspecified; K66.0 Peritoneal adhesions (postprocedural) (postinfection); E83.42 Hypomagnesemia; D64.9 Anemia, unspecified; E11.9 Type 2 diabetes mellitus without complications; Z79.84 Long term (current) use of oral hypoglycemic drugs; Z79.899 Other long term (current) drug therapy; Z90.49 Acquired absence of other specified parts of digestive tract; Z98.84 Bariatric surgery status; Z98.890 Other specified postprocedural states; Z87.891 Personal history of nicotine dependence; Z88.2 Allergy status to sulfonamides; Z88.5 Allergy status to narcotic agent; Z99.89 Dependence on other enabling machines and devices; Z90.710 Acquired absence of both cervix and uterus; Z68.34 Body mass index [BMI] 34.0-34.9, adult
CPT/HCPCS: 36415; 36416; 36430; 80048; 80400; 82533; 83735; 84443; 85025; 86850; 86900; 86901; 87324; 87449; 87493; 88304; 94640; C9113; J0834; J1170; J1650; J1885; J2001; J2250; J2405; J2543; J2704; J3010; J3411; J3475; J3490; J7042; J7611; P9016; P9045; P9047; S0020

== ENCOUNTER 2021-02-08 14:33 | Outpatient (CLI) | payer MEDICARE ==
[2021-02-08 13:46] LABS: #Eosinphils 0.1 10x3/uL (0.0-0.5); #Monocytes 0.6 10x3/uL (0.0-1.1); #Neutrophils 5.9 10x3/uL (1.5-8.4); %Basophils 0.4 % (0.0-2.0); %Eosinophils 0.9 % (0.0-6.0); %Neutrophils 72.6 % (40.0-75.0); Hemoglobin 9.1 g/dL (12.0-15.5); Mean Corpuscular HGB CONC 30.6 g/dL (32.0-36.0); Mean Corpuscular Hemoglobin 26.2 pg (27.0-33.0); Mean Corpuscular Volume 85.6 fl (81.6-98.3); Platelet Count 392 10x3/uL (150-450); RBC Distribution Width 16.9 % (11.5-14.5); Red Blood Cell (RBC) Count 3.47 10x6/uL (3.90-5.03); White Blood Cell (WBC) Count 8.1 10x3/uL (3.5-10.5)
[2021-02-08 14:07] LABS: ALT (SGPT) 13 U/L (8-55); AST (SGOT) 13 U/L (5-34); Albumin 3.2 g/dL (3.5-5.0); Alkaline Phosphatase 116 U/L (40-110); Anion Gap 19 mmol/L (10-20); BUN (Urea Nitrogen) 8 mg/dL (9.8-20.1); Bilirubin, Total 0.2 mg/dL (0.2-1.2); Calc. Creatinine Clearance 0 mL/min (70-130); Calcium 8.9 mg/dL (7.8-10.44); Carbon Dioxide 18 mmol/L (22-29); Chloride 107 mmol/L (98-107); Globulin 2.9 g/dL (2.4-3.5); Glucose 85 mg/dL (70-105); Potassium 4.6 mmol/L (3.5-5.1); Protein, Total 6.1 g/dL (6.0-8.3); Sodium 139 mmol/L (136-145)
[2021-02-08 16:40] LABS: Hemoglobin A1c 5.6 % (4.0-6.0)
[2021-02-09 01:18] LABS: SARS-CoV-2 PCR by NAA Not Detected (NotDetected)
== END 2021-02-08 14:34 | disposition home or self-care (01) ==
LOC: LABBT 14:33
PROVIDERS: ATTEND Specialist
DX: Z01.812 Encounter for preprocedural laboratory examination (principal); E66.01 Morbid (severe) obesity due to excess calories; R06.02 Shortness of breath; E13.9 Other specified diabetes mellitus without complications; M19.90 Unspecified osteoarthritis, unspecified site; F32.9 Major depressive disorder, single episode, unspecified; I51.9 Heart disease, unspecified; G47.33 Obstructive sleep apnea (adult) (pediatric); K21.9 Gastro-esophageal reflux disease without esophagitis; E89.0 Postprocedural hypothyroidism; E86.0 Dehydration; Z20.822 Contact with and (suspected) exposure to COVID-19; Z93.2 Ileostomy status
CPT/HCPCS: 80053; 83036; 85025; U0003; U0005; 87635

== ENCOUNTER 2021-03-20 16:30 | Observation (INO) | payer MEDICARE ==
[2021-03-20 17:46] VITALS: BMI 33.2
[2021-03-20] MEDS ORDERED: Sodium Chloride 0.9% 1,000 ML IV SCH (18:30)
[2021-03-20] MEDS: Sodium Chloride 0.9% 1,000 ML IV SCH (20:00)
[2021-03-20 20:06] LABS: Iron 41 ug/dL (50-170); Iron Binding Capacity, Total 138 mcg/dL (265-497)
[2021-03-20 20:22] LABS: Ferritin 239.41 ng/mL (10-291)
[2021-03-20] MEDS ORDERED: Dextrose 50% Abboject 50 ML SYRINGE SLOW IVP PRN (20:58)
[2021-03-20] MEDS ORDERED: HumaLOG 300 UNITS/3 ML VIAL SC PRN (20:58)
[2021-03-20] MEDS ORDERED: Ondansetron ODT 4 MG TAB PO PRN (20:58)
[2021-03-20] MEDS ORDERED: Ondansetron PF 4 MG/2 ML Vial IVP PRN (20:58)
[2021-03-20] MEDS ORDERED: Lorazepam 2 MG/ML VIAL SLOW IVP PRN (20:58)
[2021-03-20] MEDS ORDERED: Dextrose 5% in Water 1,000 ML IV PRN (20:58)
[2021-03-20] MEDS ORDERED: Enoxaparin Sodium 40 MG/0.4 ML SYRINGE SC SCH (21:00)
[2021-03-20] MEDS ORDERED: Albuterol Sulfate 2.5 mg/3 ml Neb NEB PRN (21:04)
[2021-03-20] MEDS ORDERED: Acetaminophen 500 MG TAB PO PRN (21:04)
[2021-03-20] MEDS ORDERED: Acetaminophen 650 MG/20.3 ML UDCUP PO PRN (21:04)
[2021-03-20] MEDS ORDERED: traZODone HCl 50 MG TAB PO SCH (22:30)
[2021-03-20] MEDS ORDERED: Melatonin 3 MG TAB PO SCH (22:30)
[2021-03-20] MEDS ORDERED: Pregabalin 50 MG CAP PO SCH (22:30)
[2021-03-20] MEDS ORDERED: busPIRone HCl 10 MG TAB PO SCH (22:30)
[2021-03-20] MEDS ORDERED: Diphenoxylate HCl/Atropine Tablet PO SCH (22:30)
[2021-03-20] MEDS ORDERED: risperiDONE 1 MG TAB PO SCH (22:30)
[2021-03-20] MEDS ORDERED: Atorvastatin Calcium 10 MG TAB PO SCH (22:30)
[2021-03-20] MEDS ORDERED: tiZANidine HCl 4 MG TAB PO SCH (22:30)
[2021-03-20] MEDS: Famotidine 20 MG TAB PO SCH (23:13)
[2021-03-20] MEDS: Vancomycin HCl 25 MG/ML Oral PO SCH (23:23)
[2021-03-21] MEDS: Sodium Chloride 0.9% 1,000 ML IV SCH ×2 (01:00→15:16)
[2021-03-21 04:16] LABS: SARS-CoV-2 NAA Rapid Test Not Detected (NotDetected)
[2021-03-21] MEDS: Vancomycin HCl 25 MG/ML Oral PO SCH (05:42)
[2021-03-21 07:19] LABS: #Eosinphils 0.2 thou/uL (0.0-0.7); #Lymphocytes 2.4 thou/uL (1.20-3.40); #Monocytes 0.7 thou/uL (0.11-0.59); #Neutrophils 5.6 thou/uL (1.40-6.50); %Basophils 0.5 % (0.0-1.0); %Eosinophils 2.8 % (0.0-10.0); %Lymphocytes 26.5 % (21.0-51.0); %Monocytes 7.7 % (0.0-10.0); %Neutrophils 62.6 % (42.0-75.0); Hemoglobin 8.9 g/dL (12.0-16.0); Mean Corpuscular HGB CONC 32.1 g/dL (32.0-36.0); Mean Corpuscular Hemoglobin 28.3 pg (27.0-31.0); Mean Corpuscular Volume 88.3 fL (78.0-98.0); Platelet Count 288 thou/uL (130-400); RBC Distribution Width 16.6 % (11.5-14.5); Red Blood Cell (RBC) Count 3.13 mill/uL (4.20-5.40); White Blood Cell (WBC) Count 8.9 thou/uL (4.8-10.8)
[2021-03-21 07:20] LABS: Hemoglobin A1c 5.3 % (4.0-6.0)
[2021-03-21 07:35] LABS: ALT (SGPT) 21 U/L (8-55); AST (SGOT) 23 U/L (5-34); Albumin 1.9 g/dL (3.5-5.0); Alkaline Phosphatase 124 U/L (40-110); Anion Gap 11 mmol/L (10-20); BUN (Urea Nitrogen) 5 mg/dL (9.8-20.1); Bilirubin, Total 0.3 mg/dL (0.2-1.2); Calc. Creatinine Clearance 103 mL/min (70-130); Calcium 7.4 mg/dL (7.8-10.44); Carbon Dioxide 18 mmol/L (22-29); Chloride 117 mmol/L (98-107); Globulin 2.8 g/dL (2.4-3.5); Glucose 79 mg/dL (70-105); Potassium 3.9 mmol/L (3.5-5.1); Protein, Total 4.7 g/dL (6.0-8.3); Sodium 142 mmol/L (136-145)
[2021-03-21] MEDS ORDERED: Tofacitinib Citrate [Xeljanz Xr] 11 MG Tab.Er.24h PO SCH (09:00)
[2021-03-21] MEDS ORDERED: tiZANidine HCl 4 MG TAB PO SCH (09:00)
[2021-03-21] MEDS ORDERED: Thiamine HCl 200 MG/2 ML VIAL SLOW IVP SCH (09:00)
[2021-03-21] MEDS ORDERED: Cholecalciferol 1,000 UNITS (25 MCG) TAB PO SCH (09:00)
[2021-03-21] MEDS ORDERED: Thiamine 100 MG TAB PO SCH (09:00)
[2021-03-21] MEDS ORDERED: Multivit, Therapeutic 1 TAB PO SCH (09:00)
[2021-03-21] MEDS ORDERED: buPROPion 75 MG TAB PO SCH (09:00)
[2021-03-21] MEDS ORDERED: Citrucel 500 MG TAB PO SCH (09:00)
[2021-03-21] MEDS ORDERED: Multivitamins, Adult 10 ML, Folic Acid 1 MG, Thiamine HCl 100 MG in Dextrose 5 %-0.45 %... IV SCH (09:00)
[2021-03-21] MEDS ORDERED: Folic Acid 1 MG, Multivitamins, Adult 10 ML in Dextrose 5 %-0.45 % NaCl 1,000 ML IV SCH (09:00)
[2021-03-21] MEDS ORDERED: PROPOFOL 200 MG/20 ML VIAL ONE (11:14)
[2021-03-21] MEDS: busPIRone HCl 10 MG TAB PO SCH ×2 (11:28→12:33)
[2021-03-21] MEDS: Diphenoxylate HCl/Atropine Tablet PO SCH ×2 (11:28→12:32)
[2021-03-21] MEDS: Pregabalin 50 MG CAP PO SCH ×2 (11:29→12:30)
[2021-03-21] MEDS: Famotidine 20 MG TAB PO SCH (12:32)
[2021-03-21 15:36] VITALS: BP 96/61; TEMP 98.5
[2021-03-21] MEDS ORDERED: Ferrous Sulfate 325 MG TAB PO SCH (17:00)
[2021-03-21] MEDS ORDERED: Atorvastatin Calcium 10 MG TAB PO SCH (21:00)
[2021-03-21] MEDS ORDERED: traZODone HCl 50 MG TAB PO SCH (21:00)
[2021-03-21] MEDS ORDERED: risperiDONE 1 MG TAB PO SCH (21:00)
[2021-03-21] MEDS ORDERED: Melatonin 3 MG TAB PO SCH (21:00)
== END 2021-03-21 16:29 | disposition home health service (06) ==
LOC: SURG A 16:30 → INTOOBSV 16:30
PROVIDERS: ADMIT Specialist; ATTEND Specialist
PROC: 0DJ08ZZ Inspection of Upper Intestinal Tract, Via Natural or Artificial Opening Endoscopic (ICD-10-PCS; principal; 2021-03-21)
DX: D64.9 Anemia, unspecified (principal); E86.0 Dehydration; R53.81 Other malaise; M19.90 Unspecified osteoarthritis, unspecified site; M06.9 Rheumatoid arthritis, unspecified; M79.7 Fibromyalgia; I10 Essential (primary) hypertension; K21.00 Gastro-esophageal reflux disease with esophagitis, without bleeding; J44.9 Chronic obstructive pulmonary disease, unspecified; Z20.822 Contact with and (suspected) exposure to COVID-19; Z88.2 Allergy status to sulfonamides; Z88.1 Allergy status to other antibiotic agents; Z88.8 Allergy status to other drugs, medicaments and biological substances; Z79.899 Other long term (current) drug therapy; Z98.84 Bariatric surgery status; Z79.82 Long term (current) use of aspirin; Z79.84 Long term (current) use of oral hypoglycemic drugs
CPT/HCPCS: 43235; 80053; 82607; 82728; 82746; 82962; 83036; 83540; 83550; 84425; 85025; 86850; 86900; 86901; 86920; 97139 ×2; U0002; U0005; 36415; 36416; J1650; J2704; J3411; J7042

== ENCOUNTER 2021-07-23 19:30 | Inpatient (IN) | payer MEDICARE ==
[2021-07-24 00:08] VITALS: BMI 29.5
[2021-07-24] MEDS ORDERED: Ketorolac Tromethamine 30 MG/ML VIAL IVP PRN (00:21)
[2021-07-24] MEDS ORDERED: Morphine 4 MG/ML VIAL SLOW IVP PRN (00:22)
[2021-07-24] MEDS ORDERED: Ondansetron PF 4 MG/2 ML Vial IVP PRN (00:26)
[2021-07-24] MEDS ORDERED: Enoxaparin Sodium 40 MG/0.4 ML SYRINGE SC SCH ×2 (00:30→21:00)
[2021-07-24] MEDS: Sodium Chloride 0.9% 1,000 ML IV SCH ×3 (01:47→18:08)
[2021-07-24] MEDS ORDERED: Sodium Chloride 0.9% 500 ML IV SCH (05:15)
[2021-07-24] MEDS: Pantoprazole 40 MG VIAL IVP SCH (08:51)
[2021-07-24 09:14] LABS: #Eosinphils 0.1 thou/uL (0.0-0.7); #Lymphocytes 1.4 thou/uL (1.20-3.40); #Monocytes 0.8 thou/uL (0.11-0.59); #Neutrophils 8.4 thou/uL (1.40-6.50); %Basophils 0.2 % (0.0-1.0); %Eosinophils 0.9 % (0.0-10.0); %Lymphocytes 12.9 % (21.0-51.0); %Monocytes 7.6 % (0.0-10.0); %Neutrophils 78.4 % (42.0-75.0); Hemoglobin 11.3 g/dL (12.0-16.0); Mean Corpuscular HGB CONC 32.1 g/dL (32.0-36.0); Mean Corpuscular Hemoglobin 29.7 pg (27.0-31.0); Mean Corpuscular Volume 92.4 fL (78.0-98.0); Mean Platelet Volume 9.4 fL (7.4-10.4); Platelet Count 214 thou/uL (130-400); RBC Distribution Width 12.3 % (11.5-14.5); Red Blood Cell (RBC) Count 3.81 mill/uL (4.20-5.40); White Blood Cell (WBC) Count 10.8 thou/uL (4.8-10.8)
[2021-07-24 10:12] LABS: Anion Gap 17 mmol/L (10-20); BUN (Urea Nitrogen) 13 mg/dL (9.8-20.1); Calc. Creatinine Clearance 88 mL/min (70-130); Calcium 8.6 mg/dL (7.8-10.44); Carbon Dioxide 22 mmol/L (22-29); Chloride 108 mmol/L (98-107); Glucose 77 mg/dL (70-105); Potassium 4.3 mmol/L (3.5-5.1); Sodium 143 mmol/L (136-145)
[2021-07-24] MEDS ORDERED: MD-Gastroview 120 ML BOT ONE (12:03)
[2021-07-25] MEDS: Sodium Chloride 0.9% 1,000 ML IV SCH ×2 (01:00→08:44)
[2021-07-25 07:00] LABS: #Lymphocytes 1.7 thou/uL (1.20-3.40); #Monocytes 1.2 thou/uL (0.11-0.59); #Neutrophils 9.8 thou/uL (1.40-6.50); %Basophils 0.3 % (0.0-1.0); %Eosinophils 0.2 % (0.0-10.0); %Lymphocytes 13.5 % (21.0-51.0); %Monocytes 9.3 % (0.0-10.0); %Neutrophils 76.7 % (42.0-75.0); Hemoglobin 10.8 g/dL (12.0-16.0); Mean Corpuscular HGB CONC 33.3 g/dL (32.0-36.0); Mean Corpuscular Hemoglobin 30.9 pg (27.0-31.0); Mean Corpuscular Volume 92.9 fL (78.0-98.0); Mean Platelet Volume 9.4 fL (7.4-10.4); Platelet Count 223 thou/uL (130-400); RBC Distribution Width 12.4 % (11.5-14.5); White Blood Cell (WBC) Count 12.8 thou/uL (4.8-10.8)
[2021-07-25 07:11] LABS: Anion Gap 19 mmol/L (10-20); BUN (Urea Nitrogen) 15 mg/dL (9.8-20.1); Calc. Creatinine Clearance 93 mL/min (70-130); Calcium 8.8 mg/dL (7.8-10.44); Carbon Dioxide 19 mmol/L (22-29); Chloride 112 mmol/L (98-107); Glucose 86 mg/dL (70-105); Potassium 3.8 mmol/L (3.5-5.1); Sodium 146 mmol/L (136-145)
[2021-07-25] MEDS: Pantoprazole 40 MG VIAL IVP SCH (08:44)
[2021-07-25] MEDS ORDERED: Albuterol Sulfate 2.5 mg/3 ml Neb NEB PRN (10:20)
[2021-07-25] MEDS ORDERED: Non-Formulary Item 1 EACH (Albuterol Sulfate Hfa (Or) 200 PUFF Inh) FS PRN (10:20)
[2021-07-25 12:17] VITALS: BP 123/78; TEMP 98.4
[2021-07-25] MEDS ORDERED: Albuterol 200 PUFF (6.7GM INHALER) INH PRN (12:33)
[2021-07-25] MEDS ORDERED: busPIRone HCl 5 MG TAB PO SCH (13:00)
[2021-07-25] MEDS ORDERED: Non-Formulary Item 1 EACH (Buspirone Hcl [Buspirone Hcl] 15 MG Tablet) PO SCH (13:00)
[2021-07-25] MEDS ORDERED: Non-Formulary Item 1 EACH (Oxycodone Hcl/Acetaminophen [Oxycodone-Acetaminophen 10-325] 1 PO SCH (15:00)
[2021-07-25] MEDS ORDERED: Pregabalin 50 MG CAP PO SCH (15:00)
[2021-07-25] MEDS ORDERED: Non-Formulary Item 1 EACH (Pregabalin [Pregabalin] 100 MG Capsule) PO SCH (15:00)
[2021-07-25] MEDS ORDERED: oxyCODONE/Acetaminophen 5 mg/325 mg Tablet PO SCH (15:00)
[2021-07-25] MEDS ORDERED: Ferrous Sulfate 325 MG TAB PO SCH (17:00)
[2021-07-25] MEDS ORDERED: Melatonin 3 MG TAB PO SCH (21:00)
[2021-07-25] MEDS ORDERED: Pravastatin Sodium 40 MG TAB PO SCH (21:00)
[2021-07-25] MEDS ORDERED: risperiDONE 1 MG TAB PO SCH (21:00)
[2021-07-25] MEDS ORDERED: Non-Formulary Item 1 EACH (Risperidone [Risperidone] 2 MG Tablet) PO SCH (21:00)
[2021-07-25] MEDS ORDERED: Hydroxychloroquine Sulfate 200 MG TAB PO SCH (21:00)
[2021-07-25] MEDS ORDERED: Non-Formulary Item 1 EACH (Tizanidine Hcl [Tizanidine Hcl] 4 MG Capsule) PO SCH (21:00)
[2021-07-25] MEDS ORDERED: tiZANidine HCl 4 MG TAB PO SCH (21:00)
[2021-07-25] MEDS ORDERED: Atorvastatin Calcium 10 MG TAB PO SCH (21:00)
[2021-07-25] MEDS ORDERED: traZODone HCl 50 MG TAB PO SCH (21:00)
[2021-07-26] MEDS ORDERED: Tofacitinib Citrate [Xeljanz Xr] 11 MG Tab.Er.24h PO SCH (09:00)
[2021-07-26] MEDS ORDERED: Non-Formulary Item 1 EACH (Cholecalciferol (Vitamin D3) [Vitamin D3] 5000 UNIT Capsule) PO SCH (09:00)
[2021-07-26] MEDS ORDERED: Multivit, Therapeutic 1 TAB PO SCH (09:00)
[2021-07-26] MEDS ORDERED: TOFACITINIB CITRATE 11 MG PO SCH (09:00)
[2021-07-26] MEDS ORDERED: Cholecalciferol 1,000 UNITS (25 MCG) TAB PO SCH (09:00)
== END 2021-07-25 13:45 | disposition home or self-care (01) | DRG 390 ==
LOC: SURG A 23:54
PROVIDERS: ADMIT Specialist; ATTEND Specialist
DX: K56.609 Unspecified intestinal obstruction, unspecified as to partial versus complete obstruction (principal); E66.01 Morbid (severe) obesity due to excess calories; K21.9 Gastro-esophageal reflux disease without esophagitis; I10 Essential (primary) hypertension; Z68.29 Body mass index [BMI] 29.0-29.9, adult; Z98.84 Bariatric surgery status; Z88.1 Allergy status to other antibiotic agents; Z88.2 Allergy status to sulfonamides; Z88.8 Allergy status to other drugs, medicaments and biological substances; Z79.51 Long term (current) use of inhaled steroids; Z79.899 Other long term (current) drug therapy; Z90.710 Acquired absence of both cervix and uterus; Z90.49 Acquired absence of other specified parts of digestive tract; Z93.2 Ileostomy status
CPT/HCPCS: 36415; 74018; 74022; 74250; 80048; 85025; C9113; J1650; J2405; J7030; J7050; Q9963